=== PATIENT | male | born 1960 | race Caucasian/White ===

== ENCOUNTER 2017-10-09 15:05 | Emergency (ER) | payer MEDICARE ==
[~2017-10-09] VITALS: Ht 180.3 cm; Wt 90.7 kg
[~2017-10-09 15:05] MED LIST: ALBU90OI INH; ASCO250CH PO; ATOR40TA PO; BACL10 PO; BUDE.25 NEB; CARV25 PO; DICL75ER PO; FURO20 PO; GABA300 PO; HYDCHL12.5 PO; Hair, Skin & N1 EACH PO; INS70/30I SC; INSULANPEN; LAVAP17G PO; LEVSOD125 PO; LEVSOD50 PO; METO25; MIRT15 PO; NYST100TC TOP; Norvasc10 MG PO; OMEP40CA12 PO; OXYC5 PO; SENN187 PO; TAMS.4ER PO; VENL75ER PO
[2017-10-09 16:13] LABS: BASOPHILS ABSOLUTE AUTO 0.02 K/mm3 (0.00-0.23); BASOPHILS PERCENT AUTO 0 % (0-2); EOSINOPHILS ABSOLUTE AUTO 0.03 K/mm3 (0.00-0.68); EOSINOPHILS PERCENT AUTO 0 % (0-6); Hematocrit 38.5 % (37.0-53.0); Hemoglobin 12.9 g/dL (13.5-17.5); IMMATURE GRAN ABSOLUTE AUTO 0.04 K/mm3 (0.00-0.10); IMMATURE GRAN PERCENT AUTO 1 % (0-1); LYMPHOCYTES ABSOLUTE AUTO 1.19 K/mm3 (0.84-5.20); LYMPHOCYTES PERCENT AUTO 14 % (21-46); MONOCYTES ABSOLUTE AUTO 0.73 K/mm3 (0.16-1.47); MONOCYTES PERCENT AUTO 9 % (4-13); Mean Corpuscular HGB 28.8 pg (26.0-34.0); Mean Corpuscular HGB Conc 33.5 g/dL (31.5-36.5); Mean Corpuscular Volume 86 fL (80-100); Mean Platelet Volume 9.8 fL (9.1-12.4); NEUTROPHILS ABSOLUTE AUTO 6.49 K/mm3 (1.96-9.15); NEUTROPHILS PERCENT AUTO 76 % (41-73); Platelet Count 230 K/mm3 (150-400); RDW Coefficient Variation 12.5 % (11.7-14.2); RDW Standard Deviation 39.5 fL (35.1-46.3); Red Blood Cell Count 4.48 M/mm3 (4.30-5.90)
[2017-10-09] MEDS ORDERED: TRAM50 PO (16:17)
[2017-10-09 16:31] LABS: Alanine Aminotransfer (ALT/SGP 10 U/L (12-78); Albumin, Blood 2.4 g/dL (3.4-5.0); Albumin/Globulin Ratio 0.4 (0.8-1.8); Alk Phos 131 U/L (50-136); Anion Gap 7 mmol/L (6-16); Aspartate Aminotrans (AST/SGOT 8 U/L (12-37); Bilirubin, Total 0.3 mg/dL (0.1-1.0); Blood Urea Nitrogen 17 mg/dL (8-24); CO2, Blood 28 mmol/L (21-32); Calcium, Blood 8.9 mg/dL (8.5-10.1); Chloride, Blood 98 mmol/L (98-108); Creatinine, Blood 0.85 mg/dL (0.60-1.20); Globulin, Blood 5.4 g/dL (2.2-4.0); Glomerular Filtration Rate >60 (60-); Glucose, Blood 267 mg/dL (70-99); Sodium, Blood 133 mmol/L (136-145); Total Protein, Blood 7.8 g/dL (6.4-8.2); Troponin I <0.015 ng/mL (0.000-0.040)
[2017-10-09] MEDS ORDERED: Norco 5-325 Ta1 EACH PO (17:10)
[2017-10-09] MEDS ORDERED: CYCL10 PO (17:10)
[2017-10-10] MEDS ORDERED: Cyclobenzaprine5 MG PO (15:44)
[2017-10-10] MEDS ORDERED: Norco 5-325 Ta1 EACH PO (15:44)
== END 2017-10-09 17:30 | disposition home or self-care (01) ==
LOC: ER 15:05
PROVIDERS: Physician Assistant
DX: S16.1XXA Strain of muscle, fascia and tendon at neck level, initial encounter (principal); I10 Essential (primary) hypertension; E11.9 Type 2 diabetes mellitus without complications; F32.9 Major depressive disorder, single episode, unspecified; F17.200 Nicotine dependence, unspecified, uncomplicated; Z88.0 Allergy status to penicillin; Z88.8 Allergy status to other drugs, medicaments and biological substances; Z79.899 Other long term (current) drug therapy; Z79.4 Long term (current) use of insulin; W18.30XA Fall on same level, unspecified, initial encounter
CPT/HCPCS: 36415; 70450; 72125; 80053; 83880; 84484; 85025; 93005; 93010; 96374; 96375; 99284; J1170; J2405

== ENCOUNTER 2017-10-10 14:53 | Emergency (ER) | payer MEDICARE ==
[~2017-10-10] VITALS: Ht 180.3 cm; Wt 98.4 kg
[~2017-10-10 14:53] MED LIST changes: +CYCL10 PO; +Norco 5-325 Ta1 EACH PO; +TRAM50 PO
[2017-10-10] MEDS ORDERED: Cyclobenzaprine5 MG PO (15:44)
[2017-10-10] MEDS ORDERED: Norco 5-325 Ta1 EACH PO (15:44)
== END 2017-10-10 15:48 | disposition home or self-care (01) ==
LOC: ER 14:53
DX: M54.2 Cervicalgia (principal); I87.2 Venous insufficiency (chronic) (peripheral); Z88.0 Allergy status to penicillin; Z88.8 Allergy status to other drugs, medicaments and biological substances; Z79.899 Other long term (current) drug therapy; Z79.4 Long term (current) use of insulin; Z79.2 Long term (current) use of antibiotics; I10 Essential (primary) hypertension; E11.9 Type 2 diabetes mellitus without complications; E78.5 Hyperlipidemia, unspecified; E03.9 Hypothyroidism, unspecified; F32.9 Major depressive disorder, single episode, unspecified; F17.210 Nicotine dependence, cigarettes, uncomplicated
CPT/HCPCS: 99281

== ENCOUNTER 2019-08-28 15:34 | Emergency (ER) | payer OTHER, MEDICARE ==
[~2019-08-28] VITALS: Ht 185.4 cm; Wt 99.8 kg
[~2019-08-28 15:34] MED LIST changes: +Cyclobenzaprine5 MG PO
[2019-08-28 16:18] LABS: BASOPHILS ABSOLUTE AUTO 0.04 K/mm3 (0.00-0.23); BASOPHILS PERCENT AUTO 1 % (0-2); EOSINOPHILS ABSOLUTE AUTO 0.08 K/mm3 (0.00-0.68); EOSINOPHILS PERCENT AUTO 1 % (0-6); Hematocrit 36.9 % (37.0-53.0); Hemoglobin 11.9 g/dL (13.5-17.5); IMMATURE GRAN ABSOLUTE AUTO 0.03 K/mm3 (0.00-0.10); IMMATURE GRAN PERCENT AUTO 1 % (0-1); LYMPHOCYTES ABSOLUTE AUTO 1.28 K/mm3 (0.84-5.20); LYMPHOCYTES PERCENT AUTO 19 % (21-46); MONOCYTES ABSOLUTE AUTO 0.55 K/mm3 (0.16-1.47); MONOCYTES PERCENT AUTO 8 % (4-13); Mean Corpuscular HGB Conc 32.2 g/dL (31.5-36.5); Mean Corpuscular Volume 90 fL (80-100); Mean Platelet Volume 9.8 fL (9.1-12.4); NEUTROPHILS ABSOLUTE AUTO 4.66 K/mm3 (1.96-9.15); NEUTROPHILS PERCENT AUTO 70 % (41-73); Platelet Count 130 K/mm3 (150-400); RDW Coefficient Variation 13.9 % (11.7-14.2); RDW Standard Deviation 45.2 fL (35.1-46.3); Red Blood Cell Count 4.11 M/mm3 (4.30-5.90); White Blood Cell Count 6.64 K/mm3 (4.00-11.30)
[2019-08-28 16:31] LABS: Source, Urine Clean Catch
[2019-08-28 16:35] LABS: Albumin, Blood 2.3 g/dL (3.4-5.0); Albumin/Globulin Ratio 0.5 (0.8-1.8); Bilirubin, Total 0.2 mg/dL (0.1-1.0); Bun/Creatinine Ratio 13.3 (12.0-20.0); Calcium, Blood 7.9 mg/dL (8.5-10.1); Creatinine, Blood 1.65 mg/dL (0.60-1.20); Globulin, Blood 4.2 g/dL (2.2-4.0); Potassium, Blood 4.6 mmol/L (3.5-5.5); Total Protein, Blood 6.5 g/dL (6.4-8.2)
[2019-08-28 16:35] LABS: Bilirubin, Urine Neg (Neg); Blood, Urine 3+ (Neg); Glucose Qualitative, Urine 2+ (Neg); Ketones, Urine Neg (Neg); Leukocyte Esterase, Urine Neg (Neg); Nitrite, Urine Neg (Neg); Protein, Urine 4+ (Neg); Specific Gravity, Urine 1.015 (1.003-1.022); Urobilinogen, Urine NORM (Normal); pH, Urine 6.5 (5.0-8.0)
[2019-08-28 16:46] LABS: Appearance, Urine Clear (Clear); Color, Urine Yellow (P-Yellow)
[2019-08-28 16:47] LABS: Bacteria Few /hpf; White Blood Cells, Urine 0-2 /hpf (0-5)
[2019-08-28 16:48] LABS: Hyaline Casts 0-2 /lpf (0-2); Squamous Epithelial Cells Few /hpf (Few)
[2019-08-28 16:49] LABS: U Amphetamine Screen DETECTED; U Barbituate Screen Not Detected; U Benzodiazapine Screen Not Detected; U Buprenorphine Screen Not Detected; U Cannabinoids Screen DETECTED; U Cocaine Screen Not Detected; U Methadone Screen Not Detected; U Methamphetamine Screen DETECTED; U Opiates Screen Not Detected; U Oxycodone Screen Not Detected; U Phencyclidine Screen Not Detected; U Propoxyphene Screen Not Detected
[2019-08-28] MEDS ORDERED: Cleocin HCl300 MG PO (17:11)
== END 2019-08-28 20:53 | disposition home or self-care (01) ==
LOC: ER 15:34
PROVIDERS: Emergency Medicine
DX: S81.812A Laceration without foreign body, left lower leg, initial encounter (principal); L03.116 Cellulitis of left lower limb; F15.10 Other stimulant abuse, uncomplicated; I10 Essential (primary) hypertension; E11.9 Type 2 diabetes mellitus without complications; E78.5 Hyperlipidemia, unspecified; E03.9 Hypothyroidism, unspecified; F32.9 Major depressive disorder, single episode, unspecified; F17.210 Nicotine dependence, cigarettes, uncomplicated; Z88.0 Allergy status to penicillin; Z88.8 Allergy status to other drugs, medicaments and biological substances; Z79.899 Other long term (current) drug therapy; Z79.4 Long term (current) use of insulin; W22.8XXA Striking against or struck by other objects, initial encounter
CPT/HCPCS: 36415; 80053; 81001; 82947; 85025; 93005; 93010; 96365; 99284-25

== ENCOUNTER 2020-04-02 00:32 | Day surgery (SDC) | payer MEDICARE, OTHER ==
[~2020-04-02 00:32] MED LIST changes: +ACET325 PO; +Cleocin HCl300 MG PO; -GABA300 PO; +GABA400 PO; +Hydrocodone-Ap1 EA23 PO; -INS70/30I SC; +LEVSOD112 PO; -LEVSOD125 PO; +METO100 PO; +NOVOLIN 70100 UNIT/1 SC
== END 2020-04-02 22:46 | disposition home or self-care (01) ==
LOC: WOUND 00:32
DX: E11.622 Type 2 diabetes mellitus with other skin ulcer (principal); L98.492 Non-pressure chronic ulcer of skin of other sites with fat layer exposed; E11.40 Type 2 diabetes mellitus with diabetic neuropathy, unspecified; I13.0 Hypertensive heart and chronic kidney disease with heart failure and stage 1 through stage 4 chronic kidney disease, or unspecified chronic kidney disease; E03.9 Hypothyroidism, unspecified; I50.9 Heart failure, unspecified; N18.9 Chronic kidney disease, unspecified; J44.9 Chronic obstructive pulmonary disease, unspecified; E78.5 Hyperlipidemia, unspecified; G47.30 Sleep apnea, unspecified; I87.2 Venous insufficiency (chronic) (peripheral); G89.4 Chronic pain syndrome; Z88.0 Allergy status to penicillin; Z88.8 Allergy status to other drugs, medicaments and biological substances; F17.200 Nicotine dependence, unspecified, uncomplicated; Z79.4 Long term (current) use of insulin; Z79.899 Other long term (current) drug therapy
CPT/HCPCS: G0463

== ENCOUNTER 2020-04-23 00:14 | Day surgery (SDC) | payer MEDICARE, OTHER | END 2020-04-23 23:11 | disposition home or self-care (01) | LOC: WOUND 00:14 | DX: E11.622 Type 2 diabetes mellitus with other skin ulcer (principal); E11.40 Type 2 diabetes mellitus with diabetic neuropathy, unspecified; L98.492 Non-pressure chronic ulcer of skin of other sites with fat layer exposed; E11.22 Type 2 diabetes mellitus with diabetic chronic kidney disease; I13.0 Hypertensive heart and chronic kidney disease with heart failure and stage 1 through stage 4 chronic kidney disease, or unspecified chronic kidney disease; E03.9 Hypothyroidism, unspecified; I50.9 Heart failure, unspecified; N18.9 Chronic kidney disease, unspecified; J44.9 Chronic obstructive pulmonary disease, unspecified; I87.2 Venous insufficiency (chronic) (peripheral); E78.5 Hyperlipidemia, unspecified; Z79.899 Other long term (current) drug therapy; Z79.4 Long term (current) use of insulin ==

== ENCOUNTER 2020-05-02 00:19 | Day surgery (SDC) | payer MEDICARE, OTHER | END 2020-05-02 23:06 | disposition home or self-care (01) | LOC: WOUND 00:19 | DX: E11.622 Type 2 diabetes mellitus with other skin ulcer (principal); L98.492 Non-pressure chronic ulcer of skin of other sites with fat layer exposed; E11.40 Type 2 diabetes mellitus with diabetic neuropathy, unspecified; E03.9 Hypothyroidism, unspecified; I13.0 Hypertensive heart and chronic kidney disease with heart failure and stage 1 through stage 4 chronic kidney disease, or unspecified chronic kidney disease; I50.9 Heart failure, unspecified; E78.5 Hyperlipidemia, unspecified; N18.9 Chronic kidney disease, unspecified; J44.9 Chronic obstructive pulmonary disease, unspecified; I87.2 Venous insufficiency (chronic) (peripheral); Z79.899 Other long term (current) drug therapy; Z79.4 Long term (current) use of insulin | CPT/HCPCS: G0463 ==

== ENCOUNTER 2021-10-10 01:57 | Day surgery (SDC) | payer MEDICARE, OTHER | END 2021-10-10 12:00 | disposition home or self-care (01) | LOC: WOUND 01:57 | DX: E11.621 Type 2 diabetes mellitus with foot ulcer (principal); L97.529 Non-pressure chronic ulcer of other part of left foot with unspecified severity; L97.519 Non-pressure chronic ulcer of other part of right foot with unspecified severity; E11.622 Type 2 diabetes mellitus with other skin ulcer; L97.829 Non-pressure chronic ulcer of other part of left lower leg with unspecified severity; L03.90 Cellulitis, unspecified; E11.40 Type 2 diabetes mellitus with diabetic neuropathy, unspecified; E11.51 Type 2 diabetes mellitus with diabetic peripheral angiopathy without gangrene; I87.2 Venous insufficiency (chronic) (peripheral); I13.0 Hypertensive heart and chronic kidney disease with heart failure and stage 1 through stage 4 chronic kidney disease, or unspecified chronic kidney disease; N18.9 Chronic kidney disease, unspecified; E11.22 Type 2 diabetes mellitus with diabetic chronic kidney disease; I50.9 Heart failure, unspecified; J44.9 Chronic obstructive pulmonary disease, unspecified; F17.200 Nicotine dependence, unspecified, uncomplicated; Z88.0 Allergy status to penicillin; Z88.8 Allergy status to other drugs, medicaments and biological substances | CPT/HCPCS: G0463 ==

== ENCOUNTER 2021-10-27 03:12 | Day surgery (SDC) | payer MEDICARE, OTHER | END 2021-10-27 23:31 | disposition home or self-care (01) | LOC: WOUND 03:12 | DX: E11.621 Type 2 diabetes mellitus with foot ulcer (principal); L97.529 Non-pressure chronic ulcer of other part of left foot with unspecified severity; L03.90 Cellulitis, unspecified; I87.2 Venous insufficiency (chronic) (peripheral); E11.51 Type 2 diabetes mellitus with diabetic peripheral angiopathy without gangrene; E11.40 Type 2 diabetes mellitus with diabetic neuropathy, unspecified; E03.9 Hypothyroidism, unspecified; E78.5 Hyperlipidemia, unspecified; E11.22 Type 2 diabetes mellitus with diabetic chronic kidney disease; I12.9 Hypertensive chronic kidney disease with stage 1 through stage 4 chronic kidney disease, or unspecified chronic kidney disease; N18.9 Chronic kidney disease, unspecified; J44.9 Chronic obstructive pulmonary disease, unspecified | CPT/HCPCS: G0463 ==

== ENCOUNTER 2022-07-27 09:49 | Day surgery (SDC) | payer OTHER, MEDICARE ==
[~2022-07-27 09:49] MED LIST changes: +Amlodipine Bes2.5 MG PO; +Aspir 8181 MG PO; +CALCIUM CARBON650 MG PO; +CHLO25B PO; +Flovent Diskus50 MCG IH; -NOVOLIN 70100 UNIT/1 SC; +NOVOLIN 70100 UNIT/3; +SODBIC650 PO; +Synthroid200 MCG PO; +Vitamin D1000 UNI1 PO; +ZYRTEC10 M2 PO
== END 2022-07-27 19:00 | disposition home or self-care (01) ==
DX: E11.51 Type 2 diabetes mellitus with diabetic peripheral angiopathy without gangrene (principal); I70.213 Atherosclerosis of native arteries of extremities with intermittent claudication, bilateral legs; Z72.0 Tobacco use; I10 Essential (primary) hypertension; E78.5 Hyperlipidemia, unspecified; N18.4 Chronic kidney disease, stage 4 (severe); E11.22 Type 2 diabetes mellitus with diabetic chronic kidney disease; Z88.8 Allergy status to other drugs, medicaments and biological substances; Z88.0 Allergy status to penicillin; Z79.82 Long term (current) use of aspirin; Z79.4 Long term (current) use of insulin

== ENCOUNTER 2023-03-31 08:49 | Emergency (ER) | payer OTHER ==
[~2023-03-31] VITALS: Ht 188 cm; Wt 120.2 kg
[~2023-03-31 08:49] MED LIST changes: +AMLO10 PO; -Amlodipine Bes2.5 MG PO; +FLONASE ALLERG9.9 M2; -Flovent Diskus50 MCG IH
[2023-03-31 10:12] LABS: Source, Urine Clean Catch
[2023-03-31 10:18] LABS: Appearance, Urine Clear (Clear); BASOPHILS ABSOLUTE AUTO 0.02 K/mm3 (0.00-0.23); BASOPHILS PERCENT AUTO 0 % (0-2); Bilirubin, Urine Neg (Neg); Blood, Urine 2+ (Neg); Color, Urine Yellow (P-Yellow); EOSINOPHILS ABSOLUTE AUTO 0.07 K/mm3 (0.00-0.68); EOSINOPHILS PERCENT AUTO 1 % (0-6); Glucose Qualitative, Urine 4+ (Neg); Hematocrit 26.6 % (37.0-53.0); Hemoglobin 8.7 g/dL (13.5-17.5); IMMATURE GRAN ABSOLUTE AUTO 0.02 K/mm3 (0.00-0.10); IMMATURE GRAN PERCENT AUTO 0 % (0-1); Ketones, Urine Neg (Neg); LYMPHOCYTES ABSOLUTE AUTO 0.58 K/mm3 (0.84-5.20); LYMPHOCYTES PERCENT AUTO 11 % (21-46); Leukocyte Esterase, Urine Neg (Neg); MONOCYTES ABSOLUTE AUTO 0.32 K/mm3 (0.16-1.47); MONOCYTES PERCENT AUTO 6 % (4-13); Mean Corpuscular HGB 29.5 pg (26.0-34.0); Mean Corpuscular HGB Conc 32.7 g/dL (31.5-36.5); Mean Corpuscular Volume 90 fL (80-100); Mean Platelet Volume 10.8 fL (9.1-12.4); NEUTROPHILS ABSOLUTE AUTO 4.28 K/mm3 (1.96-9.15); NEUTROPHILS PERCENT AUTO 81 % (41-73); Nitrite, Urine Neg (Neg); Platelet Count 101 K/mm3 (150-400); Protein, Urine 3+ (Neg); RDW Coefficient Variation 14.5 % (11.7-14.2); RDW Standard Deviation 48.3 fL (35.1-46.3); Red Blood Cell Count 2.95 M/mm3 (4.30-5.90); Specific Gravity, Urine 1.005 (1.003-1.022); Urobilinogen, Urine NORM (Normal); White Blood Cell Count 5.29 K/mm3 (4.00-11.30)
[2023-03-31 10:22] LABS: Albumin, Blood 2.4 g/dL (3.4-5.0); Albumin/Globulin Ratio 0.7 (0.8-1.8); Bilirubin, Total 0.2 mg/dL (0.1-1.0); Bun/Creatinine Ratio 15.2 (12.0-20.0); Calcium, Blood 7.6 mg/dL (8.5-10.1); Creatinine, Blood 2.17 mg/dL (0.60-1.20); Globulin, Blood 3.4 g/dL (2.2-4.0); Magnesium, Blood 1.7 mg/dL (1.6-2.4); Potassium, Blood 4.7 mmol/L (3.5-5.5); Total Protein, Blood 5.8 g/dL (6.4-8.2)
[2023-03-31 10:25] LABS: Bacteria Rare /hpf; Squamous Epithelial Cells Few /hpf (Few); White Blood Cells, Urine 0-2 /hpf (0-5)
[2023-03-31 11:27] LABS: Base Excess Venous 0.5 mmol/L; Bicarbonate Venous 24.8 mmol/L (24.0-30.0); PCO2 Venous 40.7 mmHg (38-42)
[2023-03-31 17:00] VITALS: BP 152/76
[2023-04-03] MEDS ORDERED: BACTRIM DS TAB1 EAC6 PO (15:16)
[2023-04-03] MEDS ORDERED: LOPE2C PO (15:16)
[2023-04-14] MEDS ORDERED: VISBIOME 112.51 EACH PO (11:06)
== END 2023-03-31 17:05 | disposition home or self-care (01) ==
LOC: ER 08:49
PROVIDERS: Physician Assistant
DX: R53.1 Weakness (principal); E11.65 Type 2 diabetes mellitus with hyperglycemia; I10 Essential (primary) hypertension; E78.5 Hyperlipidemia, unspecified; E03.9 Hypothyroidism, unspecified; F17.210 Nicotine dependence, cigarettes, uncomplicated; Z88.0 Allergy status to penicillin; Z88.8 Allergy status to other drugs, medicaments and biological substances; Z91.018 Allergy to other foods; Z79.82 Long term (current) use of aspirin; Z79.899 Other long term (current) drug therapy; Z79.4 Long term (current) use of insulin
CPT/HCPCS: 73502; 80053; 81001; 82803; 82947; 83735; 85025; 93005; 93010; 96361; 96374; 96375; 99285-25; A9270; J1170; J1815; J1885; J2405; J7030

== ENCOUNTER 2023-04-02 10:35 | Emergency (ER) | payer OTHER ==
[~2023-04-02] VITALS: Ht 177.8 cm; Wt 113.4 kg
[2023-04-02 11:24] LABS: BASOPHILS ABSOLUTE AUTO 0.02 K/mm3 (0.00-0.23); BASOPHILS PERCENT AUTO 0 % (0-2); EOSINOPHILS ABSOLUTE AUTO 0.04 K/mm3 (0.00-0.68); EOSINOPHILS PERCENT AUTO 0 % (0-6); Hematocrit 29.5 % (37.0-53.0); IMMATURE GRAN ABSOLUTE AUTO 0.04 K/mm3 (0.00-0.10); IMMATURE GRAN PERCENT AUTO 0 % (0-1); LYMPHOCYTES ABSOLUTE AUTO 0.84 K/mm3 (0.84-5.20); LYMPHOCYTES PERCENT AUTO 9 % (21-46); MONOCYTES ABSOLUTE AUTO 0.66 K/mm3 (0.16-1.47); MONOCYTES PERCENT AUTO 7 % (4-13); Mean Corpuscular HGB 29.8 pg (26.0-34.0); Mean Corpuscular HGB Conc 33.9 g/dL (31.5-36.5); Mean Corpuscular Volume 88 fL (80-100); Mean Platelet Volume 10.5 fL (9.1-12.4); NEUTROPHILS ABSOLUTE AUTO 8.13 K/mm3 (1.96-9.15); NEUTROPHILS PERCENT AUTO 84 % (41-73); Platelet Count 162 K/mm3 (150-400); RDW Coefficient Variation 14.5 % (11.7-14.2); RDW Standard Deviation 46.6 fL (35.1-46.3); Red Blood Cell Count 3.36 M/mm3 (4.30-5.90); White Blood Cell Count 9.73 K/mm3 (4.00-11.30)
[2023-04-02 11:30] VITALS: BP 130/57
[2023-04-02 11:38] LABS: Magnesium, Blood 1.4 mg/dL (1.6-2.4)
[2023-04-02 11:39] LABS: Alanine Aminotransfer (ALT/SGP 39 U/L (12-78); Albumin, Blood 2.2 g/dL (3.4-5.0); Albumin/Globulin Ratio 0.6 (0.8-1.8); Alk Phos 94 U/L (50-136); Anion Gap 8 mmol/L (6-16); Aspartate Aminotrans (AST/SGOT 24 U/L (12-37); Bilirubin, Direct <0.1 mg/dL (0.0-0.3); Bilirubin, Indirect Unable to Calculate mg/dL (0.1-0.7); Bilirubin, Total 0.2 mg/dL (0.1-1.0); Blood Urea Nitrogen 37 mg/dL (8-24); Bun/Creatinine Ratio 16.2 (12.0-20.0); CO2, Blood 22 mmol/L (21-32); Calcium, Blood 7.2 mg/dL (8.5-10.1); Chloride, Blood 109 mmol/L (98-108); Creatinine, Blood 2.29 mg/dL (0.60-1.20); Globulin, Blood 3.7 g/dL (2.2-4.0); Glomerular Filtration Rate 31 (60-); Glucose, Blood 52 mg/dL (70-99); Sodium, Blood 139 mmol/L (136-145); Total Protein, Blood 5.9 g/dL (6.4-8.2)
[2023-04-02 12:01] LABS: Source, Urine Clean Catch
[2023-04-02 12:17] LABS: Appearance, Urine Clear (Clear); Bilirubin, Urine Neg (Neg); Blood, Urine 2+ (Neg); Color, Urine Yellow (P-Yellow); Glucose Qualitative, Urine Neg (Neg); Ketones, Urine Neg (Neg); Leukocyte Esterase, Urine 3+ (Neg); Nitrite, Urine Pos (Neg); Protein, Urine 3+ (Neg); Specific Gravity, Urine 1.015 (1.003-1.022); Urobilinogen, Urine NORM (Normal)
[2023-04-02 12:35] LABS: Red Blood Cells, Urine 0-2 /hpf (0-2); White Blood Cells, Urine 25-50 /hpf (0-5)
[2023-04-02 12:36] LABS: Bacteria Few /hpf; Squamous Epithelial Cells Few /hpf (Few)
[2023-04-02 13:06] LABS: Influenza A, PCR NEGATIVE (NEGATIVE); Influenza B, PCR NEGATIVE (NEGATIVE); Resp Syncytial Virus, PCR NEGATIVE (NEGATIVE); SARS-Cov-2 (COVID-19) PCR, MMC NEGATIVE (NEGATIVE)
[2023-04-02] MEDS ORDERED: BACTRIM DS TAB1 EAC6 PO (14:30)
[2023-04-02] MEDS ORDERED: LOPE2C PO (16:29)
[2023-04-03] MEDS ORDERED: BACTRIM DS TAB1 EAC6 PO (15:16)
[2023-04-03] MEDS ORDERED: LOPE2C PO (15:16)
[2023-04-14] MEDS ORDERED: VISBIOME 112.51 EACH PO (11:06)
== END 2023-04-02 16:35 | disposition home or self-care (01) ==
LOC: ER 10:35
PROVIDERS: Emergency Medicine
DX: N39.0 Urinary tract infection, site not specified (principal); I10 Essential (primary) hypertension; E11.9 Type 2 diabetes mellitus without complications; E78.5 Hyperlipidemia, unspecified; E03.9 Hypothyroidism, unspecified; Z20.822 Contact with and (suspected) exposure to COVID-19; Z88.0 Allergy status to penicillin; Z88.8 Allergy status to other drugs, medicaments and biological substances; Z79.82 Long term (current) use of aspirin; Z79.4 Long term (current) use of insulin; Z79.899 Other long term (current) drug therapy; Z87.891 Personal history of nicotine dependence
CPT/HCPCS: 0241U; 51702; 51798; 74177; 80048; 80076; 81001; 83690; 83735; 84100; 84484; 85025; 96360; 96361; 99284-25; A9270; J7030; Q9967

== ENCOUNTER 2023-04-09 09:07 | Inpatient (IN) | payer OTHER ==
[~2023-04-09] VITALS: Ht 175.3 cm; Wt 105.5 kg
[~2023-04-09 09:07] MED LIST changes: +BACTRIM DS TAB1 EAC6 PO; +LOPE2C PO
[2023-04-09 09:40] LABS: Source, Urine Clean Catch
[2023-04-09 09:43] LABS: Bilirubin, Urine Neg (Neg); Blood, Urine 2+ (Neg); Glucose Qualitative, Urine Neg (Neg); Ketones, Urine 1+ (Neg); Leukocyte Esterase, Urine 3+ (Neg); Nitrite, Urine Pos (Neg); Protein, Urine 3+ (Neg); Urobilinogen, Urine NORM (Normal)
[2023-04-09 09:48] LABS: BASOPHILS ABSOLUTE AUTO 0.03 K/mm3 (0.00-0.23); BASOPHILS PERCENT AUTO 0 % (0-2); EOSINOPHILS ABSOLUTE AUTO 0.03 K/mm3 (0.00-0.68); EOSINOPHILS PERCENT AUTO 0 % (0-6); Hematocrit 30.3 % (37.0-53.0); Hemoglobin 9.8 g/dL (13.5-17.5); IMMATURE GRAN ABSOLUTE AUTO 0.03 K/mm3 (0.00-0.10); IMMATURE GRAN PERCENT AUTO 0 % (0-1); LYMPHOCYTES ABSOLUTE AUTO 0.55 K/mm3 (0.84-5.20); LYMPHOCYTES PERCENT AUTO 7 % (21-46); MONOCYTES ABSOLUTE AUTO 0.34 K/mm3 (0.16-1.47); MONOCYTES PERCENT AUTO 4 % (4-13); Mean Corpuscular HGB Conc 32.3 g/dL (31.5-36.5); Mean Corpuscular Volume 90 fL (80-100); Mean Platelet Volume 9.8 fL (9.1-12.4); NEUTROPHILS ABSOLUTE AUTO 6.79 K/mm3 (1.96-9.15); NEUTROPHILS PERCENT AUTO 87 % (41-73); Platelet Count 205 K/mm3 (150-400); RDW Coefficient Variation 15.1 % (11.7-14.2); RDW Standard Deviation 49.1 fL (35.1-46.3); Red Blood Cell Count 3.38 M/mm3 (4.30-5.90); White Blood Cell Count 7.77 K/mm3 (4.00-11.30)
[2023-04-09 09:49] LABS: Appearance, Urine Hazy (Clear); Color, Urine Pale Yellow (P-Yellow)
[2023-04-09 09:51] LABS: Bacteria Many /hpf; Squamous Epithelial Cells Rare /hpf (Few)
[2023-04-09 09:58] LABS: International Normalized Ratio 1.03; Prothrombin Time Results 10.8 Sec (9.7-11.5)
[2023-04-09 10:00] LABS: Magnesium, Blood 2.9 mg/dL (1.6-2.4)
[2023-04-09 10:01] LABS: Alanine Aminotransfer (ALT/SGP 65 U/L (12-78); Albumin, Blood 2.6 g/dL (3.4-5.0); Albumin/Globulin Ratio 0.7 (0.8-1.8); Alk Phos 148 U/L (50-136); Anion Gap 7 mmol/L (6-16); Aspartate Aminotrans (AST/SGOT 89 U/L (12-37); Bilirubin, Direct <0.1 mg/dL (0.0-0.3); Bilirubin, Indirect Unable to Calculate mg/dL (0.1-0.7); Bilirubin, Total 0.2 mg/dL (0.1-1.0); Blood Urea Nitrogen 49 mg/dL (8-24); Bun/Creatinine Ratio 14.9 (12.0-20.0); CO2, Blood 20 mmol/L (21-32); Chloride, Blood 114 mmol/L (98-108); Creatinine, Blood 3.28 mg/dL (0.60-1.20); Globulin, Blood 3.6 g/dL (2.2-4.0); Glomerular Filtration Rate 20 (60-); Glucose, Blood 199 mg/dL (70-99); Potassium, Blood 5.1 mmol/L (3.5-5.5); Sodium, Blood 141 mmol/L (136-145); Total Protein, Blood 6.2 g/dL (6.4-8.2)
[2023-04-09 15:20] VITALS: BP 121/59
--- NOTE | 2023-04-09 16:05 | NUR ---
PT CHART REVIEWED FOR ADMISSION
--- NOTE | 2023-04-09 19:06 | NUR ---
PT PLEASANT SINCE ADMIT THIS AFT. DENIES PAIN AT THIS TIME. NO EMESIS SINCE ADMIT. PT STATES NOT WALKED IN WEEK OR SO SINCE FELL OUT OF WHEELCHAIR. STATES FEARFUL. SOME BRUISING ON RT RIB CAGE. STATES FROM FALL. SCABS ON BLE AND FEET. OLD SCAB/SCARS ON TRUNK. CDI. A/O X3 PLEASNT COOP. H/R REG, NO MURMUR NOTED. PER TELE NSR AT 59-62 WITH 1'BLOCK. LUNGS CLEAR, RESP EASY, UNLABORED. ON R.A. BT X4 LAST BM YEST PER PT. VOIDS QUIGLEY CATH. YELLOW FLUID DRAINING TO GRAVITY. WAS 2 ASST TO WHEELCHAIR. FEELS UNSTEADY AND IS NOW BEEN IN BED FOR LAST WEEK. BED IN LOW POSITION, CALL LITE IN REACH, CALLS APPROP
[2023-04-09 19:56] VITALS: BP 115/50
[2023-04-10 04:41] VITALS: BP 133/58
--- NOTE | 2023-04-10 05:31 | NUR ---
SHIFT SUMMARY UNEVENTFUL SHIFT, NO ACUTE CHANGES. HAS RESTED QUIETLY WITH EYES CLOSED, RESP EVEN & UNLABORED. NO COMPLAINTS, DENIES PAIN. F/C TO GRAVITY DRAINAGE. IVF'S & CONT PROTONIX GTT INFUSING IN 2 SEPARATE IV'S. IS PLEASANT & COOPERATIVE WITH ALL CARE. IS A&O X 4. DENIES N/V & ANY GI UPSET. BED IN LOW POSITION, CALL LIGHT WITHIN REACH. BED ALARM ON.
[2023-04-10 05:48] LABS: Albumin, Blood 1.9 g/dL (3.4-5.0); Albumin/Globulin Ratio 0.7 (0.8-1.8); Bilirubin, Total 0.1 mg/dL (0.1-1.0); Bun/Creatinine Ratio 15.8 (12.0-20.0); Calcium, Blood 7.1 mg/dL (8.5-10.1); Creatinine, Blood 2.98 mg/dL (0.60-1.20); Globulin, Blood 2.9 g/dL (2.2-4.0); Potassium, Blood 5.2 mmol/L (3.5-5.5); Total Protein, Blood 4.8 g/dL (6.4-8.2)
[2023-04-10 07:18] VITALS: BP 134/57
[2023-04-10 15:14] VITALS: BP 131/53
--- NOTE | 2023-04-10 17:43 | NUR ---
THE PATIENT IS A&O X4, HIS DOCTOR ORDERED HIS DIET TO CHANGED TOO A DIABETIS DIET. THE PATIENT HAS A RED AREA AT THE END OF HIS PENSIS WHERE THE CATHETER ENTERS, PATIENT STATED THAT IT IS ALITTLE SORE. THE PATIENT HAS EATEN AND SLEPT MOST OF THE DAY, IS PLEASENT TO TALK WITH AND FOLLOWS COMMANDS, I WILL CONTINUE TO MONITOR.
[2023-04-10 19:38] VITALS: BP 136/52
[2023-04-11 03:05] VITALS: BP 156/62
[2023-04-11 04:58] LABS: BASOPHILS ABSOLUTE AUTO 0.03 K/mm3 (0.00-0.23); BASOPHILS PERCENT AUTO 1 % (0-2); EOSINOPHILS ABSOLUTE AUTO 0.17 K/mm3 (0.00-0.68); EOSINOPHILS PERCENT AUTO 4 % (0-6); Hematocrit 24.3 % (37.0-53.0); Hemoglobin 7.4 g/dL (13.5-17.5); IMMATURE GRAN ABSOLUTE AUTO 0.03 K/mm3 (0.00-0.10); IMMATURE GRAN PERCENT AUTO 1 % (0-1); LYMPHOCYTES ABSOLUTE AUTO 0.82 K/mm3 (0.84-5.20); LYMPHOCYTES PERCENT AUTO 17 % (21-46); MONOCYTES ABSOLUTE AUTO 0.39 K/mm3 (0.16-1.47); MONOCYTES PERCENT AUTO 8 % (4-13); Mean Corpuscular HGB 28.4 pg (26.0-34.0); Mean Corpuscular HGB Conc 30.5 g/dL (31.5-36.5); Mean Corpuscular Volume 93 fL (80-100); NEUTROPHILS ABSOLUTE AUTO 3.35 K/mm3 (1.96-9.15); NEUTROPHILS PERCENT AUTO 70 % (41-73); Platelet Count 143 K/mm3 (150-400); RDW Coefficient Variation 15.2 % (11.7-14.2); RDW Standard Deviation 51.9 fL (35.1-46.3); Red Blood Cell Count 2.61 M/mm3 (4.30-5.90); White Blood Cell Count 4.79 K/mm3 (4.00-11.30)
[2023-04-11 05:11] LABS: Albumin, Blood 1.9 g/dL (3.4-5.0); Albumin/Globulin Ratio 0.7 (0.8-1.8); Bilirubin, Total 0.1 mg/dL (0.1-1.0); Bun/Creatinine Ratio 13.6 (12.0-20.0); Calcium, Blood 7.3 mg/dL (8.5-10.1); Creatinine, Blood 2.87 mg/dL (0.60-1.20); Globulin, Blood 2.9 g/dL (2.2-4.0); Potassium, Blood 5.1 mmol/L (3.5-5.5); Total Protein, Blood 4.8 g/dL (6.4-8.2)
--- NOTE | 2023-04-11 05:23 | NUR ---
SHIFT SUMMARY UNEVENTFUL SHIFT, VSS. PT C/O PENIS SORE. F/C CARE DONE X 2, STAPLES DRSELINA NOTED FROM TIP OF PENIS, MILD REDNESS AT PENIS TIP. PT STATES HE'S HAD A F/C FOR QUITE SOMETIME NOW & THAT HIS F/C WAS EXCHANGED TO A NEW ONE IN THE ER THIS HOSPITALIZATION. MEDICATED FOR C/O PAIN ONCE WITH GOOD RELIEF STATED BY PT. IVF'S & PROTONIX GTT INFUSING PER MD ORDER. IS A&O X 4, PLEASANT & COOPERATIVE WITH ALL CARE. BED IN LOW POSITION, CALL LIGHT WITHIN REACH.
[2023-04-11 07:32] VITALS: BP 140/60
[2023-04-11 15:30] VITALS: BP 168/59
--- NOTE | 2023-04-11 16:45 | NUR ---
THE PATIENT HAS BEEN IS BED ALL SHIFT, WATCHING TV AND SLEEPING. THE PATIENT IS SCHEDULED FOR AN EGD TOMORROW AFTERNOON AND IS ON ICE CHIPS AND WATER AFTER 2100 AND NPO AT 1200 TOMORROW. THE PATIENT STARTED RFECEIVING ABX TODAY. THE RESTING AT THIS TIME, WILL CONTINUE TO MONITOR
[2023-04-11 21:04] VITALS: BP 156/63
[2023-04-12] VITALS (8 sets, daily range): BP systolic 146–178; BP diastolic 59–74
[2023-04-12 04:57] LABS: BASOPHILS ABSOLUTE AUTO 0.02 K/mm3 (0.00-0.23); BASOPHILS PERCENT AUTO 0 % (0-2); EOSINOPHILS ABSOLUTE AUTO 0.18 K/mm3 (0.00-0.68); EOSINOPHILS PERCENT AUTO 3 % (0-6); Hematocrit 26.5 % (37.0-53.0); Hemoglobin 8.6 g/dL (13.5-17.5); IMMATURE GRAN ABSOLUTE AUTO 0.02 K/mm3 (0.00-0.10); IMMATURE GRAN PERCENT AUTO 0 % (0-1); LYMPHOCYTES ABSOLUTE AUTO 0.75 K/mm3 (0.84-5.20); LYMPHOCYTES PERCENT AUTO 14 % (21-46); MONOCYTES ABSOLUTE AUTO 0.46 K/mm3 (0.16-1.47); MONOCYTES PERCENT AUTO 8 % (4-13); Mean Corpuscular HGB 29.1 pg (26.0-34.0); Mean Corpuscular HGB Conc 32.5 g/dL (31.5-36.5); Mean Corpuscular Volume 90 fL (80-100); Mean Platelet Volume 9.7 fL (9.1-12.4); NEUTROPHILS ABSOLUTE AUTO 4.09 K/mm3 (1.96-9.15); NEUTROPHILS PERCENT AUTO 74 % (41-73); Platelet Count 153 K/mm3 (150-400); RDW Coefficient Variation 14.7 % (11.7-14.2); RDW Standard Deviation 48.4 fL (35.1-46.3); Red Blood Cell Count 2.96 M/mm3 (4.30-5.90); White Blood Cell Count 5.52 K/mm3 (4.00-11.30)
--- NOTE | 2023-04-12 05:06 | NUR ---
SHIFT SUMMARY PATIENT DENIES PAIN, NAUSEA, AND SHORTNESS OF BREATH. CHRONIC QUIGLEY PATETNT AND DRAINING. SOME DISCHARGE AND SKIN BREAKDOWN NOTED AT [facility]. BARRIER CREAM APPLIED AFTER CLEANSING. PROTECTIVE MEPILEX TO COCCYX. PROTONIX DRIP INFUSING. EGD TOMORROW, CHIPS AND SIPS UNTIL NOON THEN NPO UNTIL SCOPE. PATIENT REPORTS HE SLIDE TRANSFERS AT BASELINE BUT IS AFRAID TO GET OUT OF BED AT THIS TIME. PLEASANT AND COOPERATIVE WITH CARE.
[2023-04-12] MEDS ORDERED: ALBU90OI INH (05:33)
[2023-04-12] MEDS ORDERED: ABILIFY MYCITE2 M2 PO (05:35)
[2023-04-12] MEDS ORDERED: AQUAPHOR ITCH R28 GM TOP (05:37)
[2023-04-12] MEDS ORDERED: Celexa20 MG PO (05:37)
[2023-04-12] MEDS ORDERED: FOLI1 PO (05:39)
[2023-04-12] MEDS ORDERED: GUAI600T33 PO (05:40)
[2023-04-12] MEDS ORDERED: INSULIN AS100 UNIT/9 SC (05:40)
[2023-04-12] MEDS ORDERED: IPRAT-ALBUT 0.5-3 ML INH (05:41)
[2023-04-12] MEDS ORDERED: XOLIDO XP118 ML TOP (05:43)
[2023-04-12] MEDS ORDERED: TRAM50 PO (05:45)
[2023-04-12 06:25] LABS: Percent Saturation 12.3 % (20.0-50.0)
[2023-04-12 06:27] LABS: Bun/Creatinine Ratio 12.2 (12.0-20.0); Calcium, Blood 7.9 mg/dL (8.5-10.1); Creatinine, Blood 2.71 mg/dL (0.60-1.20); Potassium, Blood 5.1 mmol/L (3.5-5.5)
[2023-04-12] MEDS ORDERED: HYDR10 PO (08:06)
[2023-04-12] MEDS ORDERED: COLCHICINE0.6 MG PO (08:07)
--- NOTE | 2023-04-12 08:08 | NUR ---
MEDICATION LIST RECEIVED FROM [facility]. MEDICATION RECONCILIATION COMPLETED. COLCHICINE AND HYDRALAZINE ADDED TO LIST.
--- NOTE | 2023-04-12 14:56 | NUR ---
04/12/[address] MAZA; SEE ANESTHESIA RECORDS.
--- NOTE | 2023-04-12 16:16 | NUR ---
BACK FROM EGD 155 SETTLED TO BED, PASSED BEDSIDE SWALLOW. CHAMP WATER, JELLOW WELL.
--- NOTE | 2023-04-12 17:50 | NUR ---
PT PLEASANT COOP TODAY. DID GET EGD. PASSED BEDSIDE SWALLOW. ATE JELLO. PENDING DINNER. NO C/O PAIN. VSS SINCE RETURN TO ROOM. DR HANSON PLACED ON DIET. READY TO EAT DINNER. NO NEW CONCERNS NOTED. BED IN LOW POSITION, CALL LITE IN REACH, CALLS APPROP
[2023-04-13 04:58] VITALS: BP 160/68
[2023-04-13 05:54] LABS: BASOPHILS ABSOLUTE AUTO 0.01 K/mm3 (0.00-0.23); BASOPHILS PERCENT AUTO 0 % (0-2); EOSINOPHILS ABSOLUTE AUTO 0.18 K/mm3 (0.00-0.68); EOSINOPHILS PERCENT AUTO 3 % (0-6); Hematocrit 24.7 % (37.0-53.0); Hemoglobin 7.8 g/dL (13.5-17.5); IMMATURE GRAN ABSOLUTE AUTO 0.02 K/mm3 (0.00-0.10); IMMATURE GRAN PERCENT AUTO 0 % (0-1); LYMPHOCYTES ABSOLUTE AUTO 0.94 K/mm3 (0.84-5.20); LYMPHOCYTES PERCENT AUTO 16 % (21-46); MONOCYTES ABSOLUTE AUTO 0.55 K/mm3 (0.16-1.47); MONOCYTES PERCENT AUTO 9 % (4-13); Mean Corpuscular HGB 28.6 pg (26.0-34.0); Mean Corpuscular HGB Conc 31.6 g/dL (31.5-36.5); Mean Corpuscular Volume 91 fL (80-100); Mean Platelet Volume 9.9 fL (9.1-12.4); NEUTROPHILS ABSOLUTE AUTO 4.16 K/mm3 (1.96-9.15); NEUTROPHILS PERCENT AUTO 71 % (41-73); Platelet Count 142 K/mm3 (150-400); RDW Coefficient Variation 14.6 % (11.7-14.2); RDW Standard Deviation 48.5 fL (35.1-46.3); Red Blood Cell Count 2.73 M/mm3 (4.30-5.90); White Blood Cell Count 5.86 K/mm3 (4.00-11.30)
[2023-04-13 06:33] LABS: Albumin, Blood 1.8 g/dL (3.4-5.0); Anion Gap 5 mmol/L (6-16); Blood Urea Nitrogen 30 mg/dL (8-24); CO2, Blood 22 mmol/L (21-32); Calcium, Blood 7.8 mg/dL (8.5-10.1); Chloride, Blood 110 mmol/L (98-108); Creatinine, Blood 2.72 mg/dL (0.60-1.20); Glomerular Filtration Rate 25 (60-); Glucose, Blood 218 mg/dL (70-99); Phosphorus, Blood 3.6 mg/dL (2.5-4.9); Sodium, Blood 137 mmol/L (136-145)
[2023-04-13 07:34] VITALS: BP 178/60
--- NOTE | 2023-04-13 07:50 | NUR ---
CRITICAL K RESULTS CALLED INTO [facility], ORDERS GIVEN AND WERE IMPLEMENTED NO ADVERSE AFFECTS NOTED. PT CHAMP WELL. CALCIUM GLUC GIVEN OVER 5 MIN.
[2023-04-13 10:23] LABS: Bun/Creatinine Ratio 11.4 (12.0-20.0); Calcium, Blood 8.4 mg/dL (8.5-10.1); Creatinine, Blood 2.72 mg/dL (0.60-1.20); Potassium, Blood 5.8 mmol/L (3.5-5.5)
--- NOTE | 2023-04-13 16:09 | NUR ---
Patient is lying in bed and alert. Patient tells me about his medical issues, his personal struggles and his dog. He shares about the depression that he lives with and what he feels he is pushing through each day. I normalize his experience, reinforce helpful attitudes and perspectives and provide therapeutic listening and prayer. Patient responded well and showed signs of increased peace and an elevated mood. I will continue to remian available to patient.
[2023-04-13 17:54] VITALS: BP 144/76
--- NOTE | 2023-04-13 18:50 | NUR ---
SHIFT SUMMARY; PATIENT WORKED WITH PT AND OT TODAY. TRYING TO TRANSFER WITH SLIDE BOARD. PT SAYS PATIENT ABLE TO TRANSFER TO BED FROM CHAIR WITHOIUT SLIDING BOARD. HOWEVER JOSE REFUSES FOR THIS RN LATER IN DAY AND IS [id number] BY 2 SHAPER HAND'S AND THIS RN BACK TO BED. HE IS AO X 4 THOUGHOUT THE DAY AND HAS A PLEASANT AFFECT. VITAL SIGNS ARE WNL AND PATIENT ASKS FOR PAIN MEDICATION LATE THIS AFTER NOON FOR BODY ACHES OF 7 OUT OF 10. MEDICATED WITH OXYCODONE AND TYLENOL. WITH MUCH SUCCESS. REPORT TO ONCOMING RN AT SHIFT CHANGE ALL QUESTIONS ADDRESSED.
[2023-04-13 19:34] VITALS: BP 154/73
--- NOTE | 2023-04-14 04:59 | NUR ---
SHIFT SUMMARY; NO ACUTE CHANGES OVERNIGHT. THE PT IS AXO X4 AND WHEELCHAIR BOUND AT BASELINE. THE PT HAS A CHRONIC QUIGLEY, IT IS PATENT AND DRAINING TO GRAVITY. THE PT HAS BEEN SLEEPING THE MAJORITY OF THE NIGHT. THE PT ENDORSES SOME GENERALIZED PAIN BUT DENIES THE NEED FOR PAIN MEDICATION AT THIS TIME. THE PT DENIES ANY CHEST PAIN/PRESSURE, SOB OR N/V. THE PT DID SCRATCH THE BRIDGE OF HIS NOSE LAST NIGHT, I APPLIED A BANDAIDE. CURRENTLY THE PT IS SLEEPING IN BED WITH THE BED IN THE LOWEST POSITION AND THE CALL LIGHT AT BEDSIDE. FIRE SAFETY MAINTAINED T/O THE NIGHT.
[2023-04-14 05:05] VITALS: BP 150/74
[2023-04-14 05:44] LABS: BASOPHILS ABSOLUTE AUTO 0.01 K/mm3 (0.00-0.23); BASOPHILS PERCENT AUTO 0 % (0-2); EOSINOPHILS PERCENT AUTO 3 % (0-6); Hematocrit 25.7 % (37.0-53.0); Hemoglobin 8.3 g/dL (13.5-17.5); IMMATURE GRAN ABSOLUTE AUTO 0.02 K/mm3 (0.00-0.10); IMMATURE GRAN PERCENT AUTO 0 % (0-1); LYMPHOCYTES ABSOLUTE AUTO 1.05 K/mm3 (0.84-5.20); LYMPHOCYTES PERCENT AUTO 16 % (21-46); MONOCYTES PERCENT AUTO 9 % (4-13); Mean Corpuscular HGB 29.2 pg (26.0-34.0); Mean Corpuscular HGB Conc 32.3 g/dL (31.5-36.5); Mean Corpuscular Volume 91 fL (80-100); Mean Platelet Volume 9.5 fL (9.1-12.4); NEUTROPHILS ABSOLUTE AUTO 4.64 K/mm3 (1.96-9.15); NEUTROPHILS PERCENT AUTO 71 % (41-73); Platelet Count 144 K/mm3 (150-400); RDW Coefficient Variation 14.6 % (11.7-14.2); RDW Standard Deviation 48.7 fL (35.1-46.3); Red Blood Cell Count 2.84 M/mm3 (4.30-5.90); White Blood Cell Count 6.52 K/mm3 (4.00-11.30)
[2023-04-14 06:20] LABS: Albumin, Blood 1.9 g/dL (3.4-5.0); Anion Gap 6 mmol/L (6-16); Blood Urea Nitrogen 31 mg/dL (8-24); Bun/Creatinine Ratio 11.2 (12.0-20.0); CO2, Blood 21 mmol/L (21-32); Calcium, Blood 8.3 mg/dL (8.5-10.1); Chloride, Blood 111 mmol/L (98-108); Creatinine, Blood 2.77 mg/dL (0.60-1.20); Glomerular Filtration Rate 25 (60-); Glucose, Blood 118 mg/dL (70-99); Phosphorus, Blood 4.1 mg/dL (2.5-4.9); Potassium, Blood 5.3 mmol/L (3.5-5.5); Sodium, Blood 138 mmol/L (136-145)
[2023-04-14 07:21] VITALS: BP 165/74
[2023-04-14] MEDS ORDERED: LEVO750 PO (11:05)
[2023-04-14] MEDS ORDERED: PANT20 PO (11:05)
[2023-04-14] MEDS ORDERED: LOKELMA10 GM PO (11:05)
[2023-04-14] MEDS ORDERED: VISBIOME 112.51 EACH PO ×2 (11:06)
--- NOTE | 2023-04-14 13:56 | NUR ---
DISCHARGE SUMMARY PATIENT DISCHARGED THIS SHIFT, MEDICAL TRANSPORT SERVICES, MECHANICAL LIFTED INTO WHEELCHAIR. ASSISTED TO CALL HOME HEALTH CAREGIVER PRIOR TO DISCHARGE, PATIENT STATED THEY WOULD BE AT HIS HOUSE WAITING FOR HIM ON RETURN. IV'S DISCONTINUED, DISCHARGE PACKET GIVEN AND EXPLAINED, QUESTIONS ANSWERED.
== END 2023-04-14 12:00 | disposition home health service (06) | DRG 699 ==
LOC: ER 09:07 → MEDS 11:53 → ENPENDDIS 04-14 10:08 → MEDS 04-14 12:00
PROVIDERS: Family Medicine; Internal Medicine; Internal Medicine Gastroenterology; Student in an Organized Health Care Education/Training Program; ADMIT Hospitalist
PROC: 0D758ZZ Dilation of Esophagus, Via Natural or Artificial Opening Endoscopic (ICD-10-PCS; principal; 2023-04-12 14:00)
PROC: 0DB68ZX Excision of Stomach, Via Natural or Artificial Opening Endoscopic, Diagnostic (ICD-10-PCS; 2023-04-12 14:00)
DX: T83.511A Infection and inflammatory reaction due to indwelling urethral catheter, initial encounter (principal); E87.1 Hypo-osmolality and hyponatremia; K92.0 Hematemesis; N17.9 Acute kidney failure, unspecified; N18.4 Chronic kidney disease, stage 4 (severe); N39.0 Urinary tract infection, site not specified; K22.2 Esophageal obstruction; D50.9 Iron deficiency anemia, unspecified; K44.9 Diaphragmatic hernia without obstruction or gangrene; E78.5 Hyperlipidemia, unspecified; D52.9 Folate deficiency anemia, unspecified; E03.9 Hypothyroidism, unspecified; E87.5 Hyperkalemia; F32.A Depression, unspecified; I12.9 Hypertensive chronic kidney disease with stage 1 through stage 4 chronic kidney disease, or unspecified chronic kidney disease; E11.22 Type 2 diabetes mellitus with diabetic chronic kidney disease; D63.1 Anemia in chronic kidney disease; G47.33 Obstructive sleep apnea (adult) (pediatric); B95.2 Enterococcus as the cause of diseases classified elsewhere; B96.20 Unspecified Escherichia coli [E. coli] as the cause of diseases classified elsewhere; E11.51 Type 2 diabetes mellitus with diabetic peripheral angiopathy without gangrene; I87.8 Other specified disorders of veins; N40.0 Benign prostatic hyperplasia without lower urinary tract symptoms; D69.6 Thrombocytopenia, unspecified; M16.0 Bilateral primary osteoarthritis of hip; N31.9 Neuromuscular dysfunction of bladder, unspecified; M54.12 Radiculopathy, cervical region; Z96.651 Presence of right artificial knee joint; Z90.49 Acquired absence of other specified parts of digestive tract; Z98.890 Other specified postprocedural states; Z88.0 Allergy status to penicillin; Z88.8 Allergy status to other drugs, medicaments and biological substances; Z79.4 Long term (current) use of insulin; Z79.899 Other long term (current) drug therapy; Z79.82 Long term (current) use of aspirin; Z79.890 Hormone replacement therapy; Z87.891 Personal history of nicotine dependence
CPT/HCPCS: 36415; 80048; 80053; 80069; 80076; 81001; 82272; 82607; 82728; 82746; 82947; 83036; 83540; 83550; 83690; 83735; 85025; 85610; 85730; 86850; 86900; 86901; 87077; 87086; 87186; 88305; 88342; 93005; 93010; 96365; 96366; 96367; 96375; 97162; 97166; 97530; 99285-25; A9270; C1726; C9113; J0612; J0696; J1650; J1815; J2001; J2185; J2250; J2405; J2704; J2916; J7030; J7042; J7050; J7120

== ENCOUNTER 2023-05-10 09:11 | Inpatient (IN) | payer OTHER ==
[2023-05-10] VITALS (44 sets, daily range): BP systolic 104–171; BP diastolic 60–79
[~2023-05-10] VITALS: Ht 175.3 cm; Wt 117.1 kg
[~2023-05-10 09:11] MED LIST changes: +ABILIFY MYCITE2 M2 PO; +AQUAPHOR ITCH R28 GM TOP; +COLCHICINE0.6 MG PO; +Celexa20 MG PO; +FOLI1 PO; +GUAI600T33 PO; +HYDR10 PO; +INSULIN AS100 UNIT/9 SC; +IPRAT-ALBUT 0.5-3 ML INH; +LEVO750 PO; +LOKELMA10 GM PO; +PANT20 PO; +VISBIOME 112.51 EACH PO; +XOLIDO XP118 ML TOP
[2023-05-10 09:30] LABS: Calcium, Ionized (POC) 1.11 mmol/L (1.10-1.46); Chloride (POC) 113 mmol/L (98-108); Creatinine (POC) 3.3 mg/dL (0.8-1.3); Glucose (ISTAT POC) 181 mg/dL (70-99); Hemoglobin (POC) 9.9 g/dL (13.5-17.5); Potassium (POC) 4.5 mmol/L (3.5-5.5); Sodium (POC) 141 mmol/L (135-148); Total CO2 (POC) 19 mmol/L (21-32)
[2023-05-10 09:43] LABS: BASOPHILS ABSOLUTE AUTO 0.02 K/mm3 (0.00-0.23); BASOPHILS PERCENT AUTO 0 % (0-2); EOSINOPHILS ABSOLUTE AUTO 0.03 K/mm3 (0.00-0.68); EOSINOPHILS PERCENT AUTO 0 % (0-6); Hematocrit 29.1 % (37.0-53.0); IMMATURE GRAN ABSOLUTE AUTO 0.14 K/mm3 (0.00-0.10); IMMATURE GRAN PERCENT AUTO 1 % (0-1); LYMPHOCYTES ABSOLUTE AUTO 1.59 K/mm3 (0.84-5.20); LYMPHOCYTES PERCENT AUTO 14 % (21-46); MONOCYTES PERCENT AUTO 5 % (4-13); Mean Corpuscular HGB Conc 30.9 g/dL (31.5-36.5); Mean Corpuscular Volume 94 fL (80-100); Mean Platelet Volume 10.2 fL (9.1-12.4); NEUTROPHILS PERCENT AUTO 79 % (41-73); Platelet Count 222 K/mm3 (150-400); RDW Coefficient Variation 16.1 % (11.7-14.2); RDW Standard Deviation 55.7 fL (35.1-46.3); White Blood Cell Count 11.08 K/mm3 (4.00-11.30)
[2023-05-10 09:46] LABS: Base Excess Venous -12.1 mmol/L; Bicarbonate Venous 15.3 mmol/L (24.0-30.0); PCO2 Venous 50.1 mmHg (38-42)
[2023-05-10 09:47] LABS: pH Blood Venous 7.14 (7.34-7.37)
[2023-05-10 10:03] LABS: Albumin, Blood 2.5 g/dL (3.4-5.0); Albumin/Globulin Ratio 0.6 (0.8-1.8); Bilirubin, Total 0.3 mg/dL (0.1-1.0); Bun/Creatinine Ratio 10.5 (12.0-20.0); Calcium, Blood 7.4 mg/dL (8.5-10.1); Creatinine, Blood 2.87 mg/dL (0.60-1.20); Globulin, Blood 4.1 g/dL (2.2-4.0); Potassium, Blood 4.6 mmol/L (3.5-5.5); Total Protein, Blood 6.6 g/dL (6.4-8.2)
[2023-05-10 14:39] LABS: Source, Urine Fem Cath
[2023-05-10 14:40] LABS: Influenza A, PCR NEGATIVE (NEGATIVE); Influenza B, PCR NEGATIVE (NEGATIVE); Resp Syncytial Virus, PCR NEGATIVE (NEGATIVE); SARS-Cov-2 (COVID-19) PCR, MMC NEGATIVE (NEGATIVE)
[2023-05-10 15:00] LABS: Appearance, Urine Clear (Clear); Bilirubin, Urine Neg (Neg); Blood, Urine 2+ (Neg); Color, Urine Yellow (P-Yellow); Glucose Qualitative, Urine Neg (Neg); Ketones, Urine Neg (Neg); Leukocyte Esterase, Urine 2+ (Neg); Nitrite, Urine Neg (Neg); Protein, Urine 3+ (Neg); Specific Gravity, Urine 1.015 (1.003-1.022); Urobilinogen, Urine NORM (Normal)
[2023-05-10 15:12] LABS: U Amphetamine Screen Not Detected; U Barbituate Screen Not Detected; U Benzodiazapine Screen Not Detected; U Buprenorphine Screen Not Detected; U Cannabinoids Screen DETECTED; U Cocaine Screen Not Detected; U Methadone Screen Not Detected; U Methamphetamine Screen Not Detected; U Opiates Screen Not Detected; U Oxycodone Screen Not Detected; U Phencyclidine Screen Not Detected; U Propoxyphene Screen Not Detected
[2023-05-10 15:15] LABS: Bacteria Mod /hpf; Red Blood Cells, Urine 0-2 /hpf (0-2); Squamous Epithelial Cells Rare /hpf (Few); Yeast/Fungi Urine Mod /hpf
--- NOTE | 2023-05-10 15:33 | NUR ---
UPDATED PT'S SEDATION PLACED ON STAND-BY PER DR. ALFORD ORDER. PT AWOKE A SHORT TIME LATER, PT TRACKING MY FINGER WITH HIS EYES, FOLLWING COMMANDS BY MOVING ALL 4 EXTREMITIES W STRONG BILATERAL BROADCAST JOURNALIST STRENGTH. PT BECOMING MORE TACHYPNEIC SO HE PLACED BACK ON LOW DOSE PROPOFOL. DR. ALFORD NOTIFIED, NO NEW ORDERS AT THIS TIME.
--- NOTE | 2023-05-10 18:16 | NUR ---
DAY SHIFT SUMMARY PT ARRIVED TO ICU INTUBATED ON THE VENTILATOR. PT REMAINS INTUBATED W VENT SETTINGS UNCHANGED 12/450/ 5.0 W 30% FIO2. PT'S MONITOR HAS SHOWN SR 60'S W RBBB SINCE ARRIVAL TO ICU. PT PLACED ON PROPOFOL AND VERSED GTT DC'D ON ARRIVAL. PT'S BP REMAINED WNL AND STABLE THIS SHIFT EVEN BEING SLIGHTLY HYPERTENSIVE THIS EVENING W SBP IN THE 150'S. PT ARRIVED TO THE HOSPITAL W INDWELLING QUIGLEY CATHETER WHICH WAS CHANGED IN ICU TO A TEMP QUIGLEY WHERE HE WAS SHOWN TO BE HYPOTHERMIC W A CORE TEMP OF 95.0. PT HAD BEAR HUGGER PLACED ON HIM AND HIS TEMP HAS RAISED AND REMAINED AT 98.0. ORDERS TO KEEP TEMP <99.[address] ALFORD. PT HAD SEDATION PLACED ON STAND-BY PER MD ORDER AND WHEN HE WOKE UP HE FOLLOWED COMMANDS AND HAD MOTOR FUNCTION IN ALL 4 EXTREMITIES W NO NOTEABLE DEFICITS. PT TACHYPNEIC WHILE AWAKE SO HE REMAINS ON PROPOFOL 10MG/HR. PT STARTED ON ABX THIS SHIFT FOR UTI. PT DIURESED THIS SHIFT AND HAD 600ML CLEAR YELLOW URINE OUT OF HIS QUIGLEY THIS SHIFT. PT APPEARING COMFORTABLE AT THIS TIME IN NO DISTRESS. WILL REPORT TO ONCOMING RN.
--- NOTE | 2023-05-10 19:30 | NUR ---
ASSUMPTION OF CARE RECEIVED REPORT FROM DAY SHIFT RN. PT RESTING IN BED. OPENS EYES SPONTANEOUSLY, ABLE TO MOUTH WORDS AND MAKE NEEDS KNOWN. PT FOLLOWS COMMANDS. INTUBUATED WITH 8.0 ETT TUBE, 26 AT GUMS. SEDATED WITH PROPOFOL. HR 70-80'S SR, BP WNL. VENTILATOR SETTINGS 12/450/5/30%, LUNG SOUNDS GLEAR, DIMINISHED IN RIGHT BASE. PIV TO LAC AND RAC INFUSING. TEMP QUIGLEY IN PLACE, PATENT DRAINING TO GRAVITY. PT INITIALLY HAD TEMPERATURE THAT REACHED A MAXIMUM OF 99, FAN IN PLACE AND BLANKETS REMOVED WITH GOOD RESULTS. NO FAMILY AT BEDSIDE.
[2023-05-11] VITALS (66 sets, daily range): BP systolic 107–174; BP diastolic 58–111
[2023-05-11 04:35] LABS: Hematocrit 23.4 % (37.0-53.0); Hemoglobin 7.3 g/dL (13.5-17.5); Mean Corpuscular HGB Conc 31.2 g/dL (31.5-36.5); Mean Corpuscular Volume 93 fL (80-100); Mean Platelet Volume 10.8 fL (9.1-12.4); Platelet Count 138 K/mm3 (150-400); RDW Coefficient Variation 16.1 % (11.7-14.2); RDW Standard Deviation 54.7 fL (35.1-46.3); Red Blood Cell Count 2.52 M/mm3 (4.30-5.90); White Blood Cell Count 4.89 K/mm3 (4.00-11.30)
--- NOTE | 2023-05-11 04:47 | NUR ---
SHIFT SUMMARY PT CONTINUES TO REST IN BED. INTUBATED AND SEDATED, VENTILATOR SETTINGS 12/450/5/30%. PT ABLE TO FOLLOW COMMANDS AND MAKE NEEDS KNOWN BY MOUTHING WORDS AND NODDING/SHAKING HIS HEAD. HR SR RATE 60'S, BP WNL. PT COMPLAINED OF PAIN ONCE DURING THE SHIFT, MEDICATED WITH FENTANYL PER EMAR. PIV TO RAC AND LAC, INFUSING. PROPOFOL INFUSING AT 35MCG, NS TKO. QUIGLEY PATENT DRAINING TO GRAVITY. OG TUBE IN PLACE PATENT, SET TO LOW INTERMITTENT SUCTION.
[2023-05-11 04:58] LABS: Albumin/Globulin Ratio 0.6 (0.8-1.8); Bilirubin, Total 0.3 mg/dL (0.1-1.0); Bun/Creatinine Ratio 11.7 (12.0-20.0); Creatinine, Blood 2.99 mg/dL (0.60-1.20); Globulin, Blood 3.2 g/dL (2.2-4.0); Potassium, Blood 5.1 mmol/L (3.5-5.5); Thyroid Stimulating Hormone 2.65 uIU/mL (0.360-4.800); Total Protein, Blood 5.2 g/dL (6.4-8.2)
[2023-05-11 05:54] LABS: BAND PERCENT MAN 1 % (0-8); BASOPHILS PERCENT MAN 0 % (0-2); EOSINOPHILS PERCENT MAN 0 % (0-6); LYMPHOCYTES ABSOLUTE MAN 0.24 K/mm3 (0.84-5.20); LYMPHOCYTES PERCENT MAN 5 % (21-46); METAMYELOCYTE ABSOLUTE MAN 0.04 K/mm3 (0.00-0.00); METAMYELOCYTE PERCENT MAN 1 % (0-0); MONOCYTES ABSOLUTE MAN 0.04 K/mm3 (0.16-1.47); MONOCYTES PERCENT MAN 1 % (4-13); NEUTROPHILS ABSOLUTE MAN 4.54 K/mm3 (1.96-9.15); SEG NEUTROPHILS PERCENT MAN 92 % (41-73); TOTAL CELLS COUNTED 100
--- NOTE | 2023-05-11 07:20 | NUR ---
CARE ASSUMPTION DURING BEDSIDE SHIFT REPORT W TIM AND TALIA RN'S THE PT IS LYING IN BED INTUBATED ON THE VENTILATOR. MONITOR SHOWING SR 60'S. BP WNL AND STABLE. VENT SETTINGS 12/450/5.0 W 30% FIO2. PT APPEARS COMFORTABLE IN NO DISTRESS W PROPOFOL GTT RUNNING AT 35MCG/KG/MIN. ET TUBE PLACEMENT CONFIRMED AT BEDSIDE ET UBE IS 8.0 26 CM AT THE PT'S TEETH. PT HAS TEMP QUIGLEY IN PLACE DRAINING CLEAR YELLOW URINE.
--- NOTE | 2023-05-11 10:24 | NUR ---
Pt. is intybated but otherwise awake and hrough non-verbal nodss welcomes my visit. Pt. had been visited by Fredy Sullivan on Wednesday, but Pt. welcomed more familiar spiritual care today. Through non-verbal nods Pt. affirms that he has no family visiting him, but welcomed this production helper to check on him throughout the day. Prayed with Pt. Pt. nodded appreciation for the spiritual care visit.
[2023-05-11 10:51] LABS: Hematocrit 24.9 % (37.0-53.0); Hemoglobin 7.7 g/dL (13.5-17.5)
--- NOTE | 2023-05-11 16:18 | NUR ---
UPDATE PROVIDER NOTIFIED OF PT'S BLOOD GLUCOSE OF 352. PROVIDER TO PLACE NEW ORDERS.
--- NOTE | 2023-05-11 17:42 | NUR ---
DAY SHIFT SUMMARY PT BEGAN THE SHIFT INTUBATED AND SEDATED ON THE VENTILATOR. PT WAS EXTUBATED APPROX 1140 THIS AM AND HAS REMAINED ON 2L NC ALL SHIFT W SPO2 >94%. PT'S MONITOR HAS SHOWN SR 70'S-90'S THIS SHIFT. PT BP HAS REMAINED WNL AND STABLE THIS SHIFT. PT AFEBRILE THIS SHIFT W PEAK TEMP OF 100.1. PT HAS BEEN ALERT AND ORIENTED SINCE BEING EXTUBATED COMMUNICATING APPROPRIATELY W STAFF. PT HAS TOLERATED PO INTAKE WELL AND HAS BEEN ADVANCED TO AN ADA DIET FOR DINNER. PT'S BLOOD GLUCOSE RISING THIS SHIFT >350 SO PROVIDER CONTACTED AND SS INCRESED FROM LOW SS TO MEDIUM SS. PT REPORTING PAIN IN HIS RIBS THIS SHIFT AND WAS GIVEN IV PAIN MEDICATION X1 THIS SHIFT. PT DENYING FEELING SOB THIS SHIFT BUT BECAME ORTHOPENIC WHEN LAID FLAT IN BED. PT'S QUIGLEY REMAINS PATENT AND DRAINED 500ML CLEAR YELLOW URINE THIS SHIFT. PT HAD ULTRASOUND ON HIS BLE'S THIS SHIFT TO RULE OUT DVT AND HEMATOMA IN L LEG WHICH CAME BACK NEGATIVE. PT CURRENTLY SITTING IN BED TALKING W HIS FRIEND WHO HAS COME TO VISIT HIM. WILL REPORT TO ONCOMING RN.
--- NOTE | 2023-05-11 20:31 | NUR ---
ASSUMED CARE/TRANSFER PT IS A&O X4. DENIES CP OR NAUSEA; STATES RIBS HURT FROM CPR (MEDICATING PER EMAR); COMPLAINS OF MILD SOB (SPO2 >92%, CRACKLES IN BILATERAL LUNG BASES, DR BANKS AT BEDSIDE WHO ALSO HEARD COMPLAINT/ASSESSED PT; NO NEW ORDERS). PERRLA; VSS. QUIGLEY PATENT AND DRAINING TO GRAVITY. EQUAL [employer] HEAD FORMER STRENGTH BILATERALLY.
--- NOTE | 2023-05-11 21:01 | NUR ---
TRANSFER PT TRANSFERRED @ 1929 W/ BELONGINGS/MEDICATIONS.
--- NOTE | 2023-05-12 02:00 | NUR ---
PT VERB NEED TO CONFIRM [facility] LIST WITH [facility] IN AM.HOWEVER,PT REQUESTING NEURONTIN PO NOW FOR SLEEP.PT STATES TAKES 400 MG AT HOME.I CALLED DR GUTIÉRREZ AND RECEIVED ORDER FOR NEURONTIN 200 MG PO NOW.
[2023-05-12 04:08] VITALS: BP 138/78
[2023-05-12 04:18] LABS: BASOPHILS ABSOLUTE AUTO 0.01 K/mm3 (0.00-0.23); BASOPHILS PERCENT AUTO 0 % (0-2); EOSINOPHILS PERCENT AUTO 0 % (0-6); Hemoglobin 7.2 g/dL (13.5-17.5); IMMATURE GRAN ABSOLUTE AUTO 0.06 K/mm3 (0.00-0.10); IMMATURE GRAN PERCENT AUTO 1 % (0-1); LYMPHOCYTES ABSOLUTE AUTO 0.74 K/mm3 (0.84-5.20); LYMPHOCYTES PERCENT AUTO 9 % (21-46); MONOCYTES ABSOLUTE AUTO 0.76 K/mm3 (0.16-1.47); MONOCYTES PERCENT AUTO 10 % (4-13); Mean Corpuscular HGB 28.5 pg (26.0-34.0); Mean Corpuscular HGB Conc 31.3 g/dL (31.5-36.5); Mean Corpuscular Volume 91 fL (80-100); Mean Platelet Volume 10.6 fL (9.1-12.4); NEUTROPHILS ABSOLUTE AUTO 6.43 K/mm3 (1.96-9.15); NEUTROPHILS PERCENT AUTO 80 % (41-73); Platelet Count 165 K/mm3 (150-400); RDW Coefficient Variation 16.1 % (11.7-14.2); RDW Standard Deviation 53.1 fL (35.1-46.3); Red Blood Cell Count 2.53 M/mm3 (4.30-5.90)
[2023-05-12 04:48] LABS: Albumin, Blood 2.3 g/dL (3.4-5.0); Albumin/Globulin Ratio 0.7 (0.8-1.8); Bilirubin, Total 0.3 mg/dL (0.1-1.0); Creatinine, Blood 3.45 mg/dL (0.60-1.20); Globulin, Blood 3.5 g/dL (2.2-4.0); Magnesium, Blood 1.7 mg/dL (1.6-2.4); Phosphorus, Blood 5.9 mg/dL (2.5-4.9); Potassium, Blood 4.6 mmol/L (3.5-5.5); Total Protein, Blood 5.8 g/dL (6.4-8.2)
--- NOTE | 2023-05-12 06:56 | NUR ---
SUMMARY PT TRANSFERRED FROM ICU S/P EXTUBATION THIS AM AFTER ADMIT FOR CARDIAC ARREST AND CPR ENROUTE.PT REPORTS SOB WITH REST.ICU REPORTED PE W/U WAS NEGATIVE. PT ALSO HAS GIULIA ON CKD WITH CHRONIC INDWELLING QUIGLEY.ADEQUATE OUTPUT TONIGHT AND VSS.
[2023-05-12 08:52] VITALS: BP 155/79
[2023-05-12 11:59] VITALS: BP 138/74
--- NOTE | 2023-05-12 14:47 | NUR ---
Pt. is awake in bed and welcomes my visit. Pt. displays evidence of being in pain. 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 Pt. displays evidence of awareness and engagement. Prayed with Pt. Pt. verbalized gratitude for the spiritual care visit.
[2023-05-12 14:53] LABS: Bun/Creatinine Ratio 13.1 (12.0-20.0); Calcium, Blood 7.3 mg/dL (8.5-10.1); Creatinine, Blood 3.37 mg/dL (0.60-1.20); Potassium, Blood 4.3 mmol/L (3.5-5.5)
[2023-05-12 16:24] VITALS: BP 135/72
--- NOTE | 2023-05-12 17:43 | NUR ---
Brief supportive visit. Pt resting in bed and reports significant pain due to his neuropathy. Pt appears painful as evidenced by constant movement and adjustment of his legs. He reports taking gabapentin since 1994 for his neuropathy. Pt reports living at home alone and has caregivers to assist with his careneeds. Pt reports needing assistance with bathing, dressing, cooking, and is wheelchair bound. Offered therapeutic listening as Pt reports his father and sister passing away earlier this year. Offered condolences and continued therapeutic listening. Spoke with Primary RN Zulay and discussed case. Consulted hospital pharmacist to assist with neuropathy pain. Spoke with Dr Mehta and discussed case. Placed order for one time dose of gabapentin 300mg PO per V/O from Dr Mehta. Palliative Care will remain available
--- NOTE | 2023-05-12 18:35 | NUR ---
NO ACUTE CHANGES SINCE LAST NOTE. CALLED AND DISCUSSED PAIN CONTROL WITH RESIDENTS. HOME MEDICATIONS ORDERED. PALLIATIVE CARE CONSULTED AND WAS ABLE TO GET PT A ONE TIME DOSE OF GABAPENTIN, WHICH HAD BEEN HELD THE LAST FEW DAYS D/T PT'S RENAL FUNCTION. PLAN IS TO EVALUATE LABS IN THE AM AND ADJUST DOSE IF ABLE. PT HAS HAD NO COMPLAINTS OTHER THAN PAIN. GIVEN TYLENOL, TRAMADOL AND FENTANYL WITH LITTLE RELIEF. PT IS ABLE TO USE CALL LIGHT FOR NEEDS, CALL LIGHT IN REACH, WILL CONTINUE TO MONITOR AND GIVE REPORT TO ONCOMING RN.
[2023-05-12 19:46] VITALS: BP 130/68
[2023-05-12 23:40] VITALS: BP 132/81
[2023-05-13 03:27] VITALS: BP 146/70
[2023-05-13 04:19] LABS: BASOPHILS ABSOLUTE AUTO 0.02 K/mm3 (0.00-0.23); BASOPHILS PERCENT AUTO 0 % (0-2); EOSINOPHILS ABSOLUTE AUTO 0.02 K/mm3 (0.00-0.68); EOSINOPHILS PERCENT AUTO 0 % (0-6); Hematocrit 25.2 % (37.0-53.0); IMMATURE GRAN ABSOLUTE AUTO 0.03 K/mm3 (0.00-0.10); IMMATURE GRAN PERCENT AUTO 1 % (0-1); LYMPHOCYTES ABSOLUTE AUTO 0.73 K/mm3 (0.84-5.20); LYMPHOCYTES PERCENT AUTO 11 % (21-46); MONOCYTES ABSOLUTE AUTO 0.65 K/mm3 (0.16-1.47); MONOCYTES PERCENT AUTO 10 % (4-13); Mean Corpuscular HGB 28.7 pg (26.0-34.0); Mean Corpuscular HGB Conc 31.7 g/dL (31.5-36.5); Mean Corpuscular Volume 90 fL (80-100); Mean Platelet Volume 10.2 fL (9.1-12.4); NEUTROPHILS ABSOLUTE AUTO 5.01 K/mm3 (1.96-9.15); NEUTROPHILS PERCENT AUTO 78 % (41-73); Platelet Count 171 K/mm3 (150-400); RDW Coefficient Variation 15.9 % (11.7-14.2); RDW Standard Deviation 52.3 fL (35.1-46.3); Red Blood Cell Count 2.79 M/mm3 (4.30-5.90); White Blood Cell Count 6.46 K/mm3 (4.00-11.30)
[2023-05-13 04:41] LABS: Bun/Creatinine Ratio 13.3 (12.0-20.0); Calcium, Blood 7.1 mg/dL (8.5-10.1); Creatinine, Blood 3.15 mg/dL (0.60-1.20); Potassium, Blood 4.6 mmol/L (3.5-5.5)
--- NOTE | 2023-05-13 05:50 | NUR ---
PT SUMMARY: PT WAS TRANSFERRED FROM PCU 6 TO PCU1 UPON SHIFT CHANGE, PT ALERT AND ORIENTED X3, PT CALLS APPROPRIATELY AND ABLE TO MAKE NEEDS KNOWN, VITALS HRR SR 60'S, SBP 130'S, SATS ABOVE 90% ON 2L OF O2, AFEBRILE. PT DESATS TO 85 WHEN O2 IS NOT ON. PT HAS SOEM RIB FX PAIN FROM COMPRESSION, MEDICATED WITH PAIN MEDICINE PER EMAR, FOLEUY DRAINING VIA GRAVITY, PT HAS BEEN REPOSITIONED FOR COMFORT. PT RESTED ON AND OFF FOR THE SHIFT. NO OTHER ISSUES AT THIS TIME, WILL REPORT TO ONCOMING SHIFT
[2023-05-13 09:25] VITALS: BP 135/59
[2023-05-13 11:20] VITALS: BP 132/68
[2023-05-13 16:45] VITALS: BP 130/66
--- NOTE | 2023-05-13 19:18 | NUR ---
NO ACUTE CHANGES T/O THE SHIFT. SEE DOCUEMENTED VS AND ASSESSMENT. PT WORKED WITH PT/OT. PT OOB TO CHAIR THIS EVENING TO DINNER VIA OVERHEAD LIFT IN ROOM. PAIN CONTROL IS BETTER TODAY. PT BATHED TODAY. PT IS ABLE TO USE CALL LIGHT FOR NEEDS, CALL LIGHT IN REACH. REPORT GIVEN TO JANEEN LOYA.
[2023-05-13 20:40] VITALS: BP 148/75
[2023-05-13 23:09] VITALS: BP 142/77
[2023-05-14 03:30] VITALS: BP 142/71
[2023-05-14 03:36] LABS: BASOPHILS ABSOLUTE AUTO 0.02 K/mm3 (0.00-0.23); BASOPHILS PERCENT AUTO 0 % (0-2); EOSINOPHILS ABSOLUTE AUTO 0.05 K/mm3 (0.00-0.68); EOSINOPHILS PERCENT AUTO 1 % (0-6); Hematocrit 24.1 % (37.0-53.0); Hemoglobin 7.5 g/dL (13.5-17.5); IMMATURE GRAN ABSOLUTE AUTO 0.02 K/mm3 (0.00-0.10); IMMATURE GRAN PERCENT AUTO 0 % (0-1); LYMPHOCYTES ABSOLUTE AUTO 0.56 K/mm3 (0.84-5.20); LYMPHOCYTES PERCENT AUTO 10 % (21-46); MONOCYTES ABSOLUTE AUTO 0.56 K/mm3 (0.16-1.47); MONOCYTES PERCENT AUTO 10 % (4-13); Mean Corpuscular HGB 28.4 pg (26.0-34.0); Mean Corpuscular HGB Conc 31.1 g/dL (31.5-36.5); Mean Corpuscular Volume 91 fL (80-100); Mean Platelet Volume 10.5 fL (9.1-12.4); NEUTROPHILS ABSOLUTE AUTO 4.43 K/mm3 (1.96-9.15); NEUTROPHILS PERCENT AUTO 79 % (41-73); Platelet Count 140 K/mm3 (150-400); RDW Coefficient Variation 15.9 % (11.7-14.2); RDW Standard Deviation 53.2 fL (35.1-46.3); Red Blood Cell Count 2.64 M/mm3 (4.30-5.90); White Blood Cell Count 5.64 K/mm3 (4.00-11.30)
[2023-05-14 04:04] LABS: Albumin, Blood 2.1 g/dL (3.4-5.0); Albumin/Globulin Ratio 0.6 (0.8-1.8); Bilirubin, Total 0.3 mg/dL (0.1-1.0); Bun/Creatinine Ratio 13.9 (12.0-20.0); Calcium, Blood 7.1 mg/dL (8.5-10.1); Creatinine, Blood 3.1 mg/dL (0.60-1.20); Globulin, Blood 3.4 g/dL (2.2-4.0); Total Protein, Blood 5.5 g/dL (6.4-8.2)
--- NOTE | 2023-05-14 04:27 | NUR ---
SHIFT SUMMARY NO ACUTE CHANGES THIS SHIFT. VSS. MENTATION UNCHANGED, AXO4, VERY TALKATIVE. REMAINS IN SR. O2 DEMANDS FLUCTUATE DETERMINING ON BEING AWAKE OR ASLEEP. WHILE AWAKE, ON 3LNC, WHILE ASLEEP 85-6L O2 MASK DUE TO MOUTH BREATHING. PT BEING TURNED MULTIPLES TIMES THIS SHIFT. PT IN INCREASED PAIN THIS SHIFT DUE TO AMOUNT OF TIME IN CHAIR DURING DAY SHIFT VS PRIOR SHIFTS - PER PT STATEMENT. SORAIDA PATENT. PT BEING ENCOURAGED TO DEEP BREATH/COUGH, PT USING ARMS/PILLOW TO SPLINT WITH THIS WELL. OTHERWISER, PT HASN'T RESTED MUCH THIS SHIFT. SLEEPS FOR <30 MINUTES AT A TIME BEFORE WAKING DESPITE CALM AND QUIET ENVIRONMENT. CALL LIGHT WITHIN REACH. BED IN LOW POSITION.
[2023-05-14 08:00] VITALS: BP 132/70
[2023-05-14 15:47] VITALS: BP 132/69
[2023-05-14 15:59] LABS: Hematocrit 24.2 % (37.0-53.0); Hemoglobin 7.7 g/dL (13.5-17.5); IMMATURE RETIC FRACTION 20.9 % (2.3-16.0); RETIC HGB EQUIVALENT 25.8 pg (28.20-36.60); RETICULOCYTE ABSOLUTE 0.0541 M/mm3 (0.0200-0.1100); RETICULOCYTE COUNT PERCENT 2.01 % (0.50-2.50)
--- NOTE | 2023-05-14 16:12 | NUR ---
TRANSFER: PT TRANSFERRED TO [place] [id number] VIA BED. ALL BELONGINGS WITH PT. REPORT GIVEN TO MARYBEL Bailey RN.
--- NOTE | 2023-05-14 17:36 | NUR ---
NOTES: PATIENT ARRIVES TO ROOM AT AROUND 1620 FROM PCU. ASSUMED CARE OF PATIENT. PATIENT IS ALERT AND ORIENTED TO SELF, PLACE AND CURRENT SITUATIONS. ON TELE, SR HR IN THE 70'S BPM. DENIES CP/PRESSURE. ON O2 2L VIA NC c SPO2 ABOVE 90%. LUNGS COARSE T/O TO AUSCULTATIONS. NOTED BROWN DISCOLORATION TO BLE'S, PRESSURE SORE TO R HEEL, BRUISING SCATTERED T/O AND REDENESS TO COCCYX MIPELEX DRESSING PLACED. QUIGLEY PATENT, DRAINING TALIA COLOR URINE TO GRAVITY. REPOSITIONED AND HEELS ELEVATED ON PILLOWS. PIV TO RAC SALINE LOCKED. BED ALARM ON FOR SAFETY. CALL LIGHT IN REACH.
[2023-05-14 20:06] VITALS: BP 139/68
[2023-05-15 02:06] VITALS: BP 146/70
--- NOTE | 2023-05-15 06:07 | NUR ---
SHIFT SUMMARY PATIENT A/Ox3, FORGETFUL, IS HARD OF HEARING. MUMBLING SPEECH AT TIMES. DENIES PAIN NOR DISCOMFORT. VSS, SPO2 90% ON 2L NC. PATIENT STATES HAS BEEN AMBULATING VIA WHEELCHAIR SINCE 2017 DUE TO HIS LEGS BEING TOO WEAK. QUIGLEY PATENT, DRAINING TALIA URINE. PRESSURE SORE TO RIGHT HEEL IS DRY, CLOSED AND SODA FOUNTAIN MANAGER, ELEVATED ON PILLOW. PIV TO RIGHT AC IS PATENT, SL. BED LOW, BED ALARM ON FOR PATIENT SAFETY, CALL LIGHT WITHIN REACH.
[2023-05-15 06:33] LABS: BASOPHILS ABSOLUTE AUTO 0.01 K/mm3 (0.00-0.23); BASOPHILS PERCENT AUTO 0 % (0-2); EOSINOPHILS ABSOLUTE AUTO 0.09 K/mm3 (0.00-0.68); EOSINOPHILS PERCENT AUTO 2 % (0-6); Hematocrit 25.5 % (37.0-53.0); Hemoglobin 8.1 g/dL (13.5-17.5); IMMATURE GRAN ABSOLUTE AUTO 0.01 K/mm3 (0.00-0.10); IMMATURE GRAN PERCENT AUTO 0 % (0-1); LYMPHOCYTES ABSOLUTE AUTO 0.57 K/mm3 (0.84-5.20); LYMPHOCYTES PERCENT AUTO 10 % (21-46); MONOCYTES ABSOLUTE AUTO 0.49 K/mm3 (0.16-1.47); MONOCYTES PERCENT AUTO 9 % (4-13); Mean Corpuscular HGB 28.6 pg (26.0-34.0); Mean Corpuscular HGB Conc 31.8 g/dL (31.5-36.5); Mean Corpuscular Volume 90 fL (80-100); Mean Platelet Volume 10.1 fL (9.1-12.4); NEUTROPHILS PERCENT AUTO 80 % (41-73); Platelet Count 138 K/mm3 (150-400); RDW Coefficient Variation 15.5 % (11.7-14.2); RDW Standard Deviation 51.6 fL (35.1-46.3); Red Blood Cell Count 2.83 M/mm3 (4.30-5.90); White Blood Cell Count 5.77 K/mm3 (4.00-11.30)
[2023-05-15 07:12] LABS: Bun/Creatinine Ratio 13.7 (12.0-20.0); Calcium, Blood 7.7 mg/dL (8.5-10.1); Creatinine, Blood 2.85 mg/dL (0.60-1.20)
[2023-05-15 07:13] VITALS: BP 161/78
[2023-05-15 16:07] VITALS: BP 137/69
--- NOTE | 2023-05-15 17:52 | NUR ---
SHIFT SUMMARY: PATIENT IS A&OX4. ANSWER TO QUESTIONS APPROPRIATELY, CALM PLEASANT AND COOPERATTIVE c CARE. USES CALL LIGHT APPROPRIATELY AND ABLE TO MAKE NEEDS KNOWN. PATIENT ON TELE, SR HR IN THE HIGH 60'S BPM. LUNGS STILL COARSE T/O TO AUSCULTATION. PRODUCTIVE COUGH c THICK WHT/STAPLES COLOR SPUTUM. ON 2L OF O2 c SPO2 RANGES 93-94%. DENIES CP/PRESSURE, SOB, N/V, AND DIZZINESS. BS RANGES 178-253 THIS SHIFT, RECEIVED INSULIN PER EMAR COVERAGE. RECEIVED IV ABX AND SCHEDULED PO MEDS PER EMAR. PATIENT WORK c PT BED MOBILITY THIS AM AND WAS ABLE TO SIT UP ON THE EOB. PT STILL RECOMMENDING SNF FOR REHAB. RECEIVED BEDBATH AND LINEN CHANGED TODAY. QUIGLEY PATENT, DRAINING YELLOW URINE TO GRAVITY. REPOSITIONED T/O SHIFT. VITAL SIGNS REVIEWED. BED ALARM ON FOR SAFETY. CALL LIGHT IN REACH.
[2023-05-15 19:14] VITALS: BP 136/64
--- NOTE | 2023-05-16 04:27 | NUR ---
SHIFT SUMMARY PT IS A&O4, BEDREST, 2L NC SATS LOW TO MID 90'S, VSS, CHRONIC QUIGLEY PATENT DRAINING CLEAR YELLOW URINE TO GRAVITY, PRN PAIN MEDICATION GIVEN X1 PER EMAR, NO ACUTE OVERNIGHT EVENTS, CONTINUE POC
[2023-05-16 05:39] LABS: BASOPHILS ABSOLUTE AUTO 0.03 K/mm3 (0.00-0.23); BASOPHILS PERCENT AUTO 1 % (0-2); EOSINOPHILS ABSOLUTE AUTO 0.13 K/mm3 (0.00-0.68); EOSINOPHILS PERCENT AUTO 2 % (0-6); Hematocrit 25.1 % (37.0-53.0); Hemoglobin 7.9 g/dL (13.5-17.5); IMMATURE GRAN ABSOLUTE AUTO 0.01 K/mm3 (0.00-0.10); IMMATURE GRAN PERCENT AUTO 0 % (0-1); LYMPHOCYTES ABSOLUTE AUTO 0.74 K/mm3 (0.84-5.20); LYMPHOCYTES PERCENT AUTO 12 % (21-46); MONOCYTES ABSOLUTE AUTO 0.53 K/mm3 (0.16-1.47); MONOCYTES PERCENT AUTO 9 % (4-13); Mean Corpuscular HGB 28.5 pg (26.0-34.0); Mean Corpuscular HGB Conc 31.5 g/dL (31.5-36.5); Mean Corpuscular Volume 91 fL (80-100); Mean Platelet Volume 10.8 fL (9.1-12.4); NEUTROPHILS ABSOLUTE AUTO 4.65 K/mm3 (1.96-9.15); NEUTROPHILS PERCENT AUTO 76 % (41-73); Platelet Count 151 K/mm3 (150-400); RDW Coefficient Variation 15.2 % (11.7-14.2); RDW Standard Deviation 50.5 fL (35.1-46.3); Red Blood Cell Count 2.77 M/mm3 (4.30-5.90); White Blood Cell Count 6.09 K/mm3 (4.00-11.30)
[2023-05-16 05:49] LABS: Albumin/Globulin Ratio 0.6 (0.8-1.8); Bilirubin, Total 0.2 mg/dL (0.1-1.0); Bun/Creatinine Ratio 14.3 (12.0-20.0); Creatinine, Blood 2.59 mg/dL (0.60-1.20); Globulin, Blood 3.6 g/dL (2.2-4.0); Potassium, Blood 5.1 mmol/L (3.5-5.5); Total Protein, Blood 5.6 g/dL (6.4-8.2)
[2023-05-16 06:33] VITALS: BP 148/67
[2023-05-16 08:04] VITALS: BP 157/79
--- NOTE | 2023-05-16 17:50 | NUR ---
SHIFT SUMMARY: PATIENT A&OX4. CALM, PLEASANT AND COOPERATIVE c CARE. USES CALL LIGHT APPROPRIATELY AND ABLE TO MAKE NEEDS KNOWN. DENIES CP/PRESSURE, SOB, N/V, AND DIZZINESS. REPORTS PAIN TO RIB CAGE WHEN HE COUGHS, OFFERED PAIN MEDS BUT DECLINE. ON TELE, SR HR IN THE 70'S BPM. LUNGS STILL COARSE T/O TO AUSCULTATION. RECEIVED OT DOSE OF IV LASIX. QUIGLEY PATENT, DRAINING CLEAR YELLOW URINE c SOME WHITE SIDEMENTS TO GRAVITY c TOTAL URINE OUTPUT OF 2000 MLS. BS RANGES 130-220 THIS SHIFT, RECEIVED INSULIN PER EMAR COVERAGE. REPOSITONED AND BLE'S ELEVATED ON PILLOWS. NO BM SINCE 05/10/23. RECEIVED SCHEDULED MEDS PER EMAR. VITAL SIGNS REVIEWED. PIV TO FIDE AND RAC SALINE LOCKED. BED ALARM ON FOR SAFETY. CALL LIGHT IN REACH.
[2023-05-16 20:32] VITALS: BP 151/70
[2023-05-17 02:27] VITALS: BP 154/65
[2023-05-17 06:12] LABS: Hematocrit 25.8 % (37.0-53.0); Mean Corpuscular HGB 28.2 pg (26.0-34.0); Mean Corpuscular Volume 91 fL (80-100); Mean Platelet Volume 10.6 fL (9.1-12.4); Platelet Count 162 K/mm3 (150-400); RDW Coefficient Variation 15.2 % (11.7-14.2); RDW Standard Deviation 50.4 fL (35.1-46.3); Red Blood Cell Count 2.84 M/mm3 (4.30-5.90); White Blood Cell Count 7.72 K/mm3 (4.00-11.30)
[2023-05-17 06:46] LABS: Albumin/Globulin Ratio 0.5 (0.8-1.8); Bilirubin, Total 0.2 mg/dL (0.1-1.0); Calcium, Blood 8.3 mg/dL (8.5-10.1); Creatinine, Blood 2.69 mg/dL (0.60-1.20); Globulin, Blood 3.7 g/dL (2.2-4.0); Potassium, Blood 5.2 mmol/L (3.5-5.5); Total Protein, Blood 5.7 g/dL (6.4-8.2)
[2023-05-17 07:15] VITALS: BP 160/80
[2023-05-17 14:39] VITALS: BP 146/75
[2023-05-17 15:03] LABS: Influenza A, PCR NEGATIVE (NEGATIVE); Influenza B, PCR NEGATIVE (NEGATIVE); Resp Syncytial Virus, PCR NEGATIVE (NEGATIVE); SARS-Cov-2 (COVID-19) PCR, MMC NEGATIVE (NEGATIVE)
--- NOTE | 2023-05-17 16:48 | NUR ---
SHIFT SUMMARY A&OX4, COOPERATIVE. MUMBLES WHEN COMMUNICATING. NO ACUTE CHANGES THIS SHIFT. PATIENT TRANSFERRED TO RECLINER CHAIR VIA LEFT AND SAT UP FOR ABOUT AN HOUR THIS AFTERNOON PER PT'S ENCOURAGEMENT. PATIENT COMPLAINED OF PAIN TO RIGHT HIP AND "BUTT PAIN" WHILE REPOSITIONING AND TRANSFERRING TO RECLINER. PREVENTATIVE MEPILEX ON COCCYX, TISSUE IS BLANCHABLE. O2 SATS IN THE LOW TO MID 90'S ON 2LI VIA NC T/O SHIFT. LUNGS ARE COARSE T/O. DEEP, WET COUGH NOTED. PLAN FOR DISCHARGE TO SNF TOMORROW. PATIENT CURRENTLY LAYING IN BED WAITING FOR DINNER. CALL LIGHT IS WITHIN REACH.
[2023-05-17 19:22] VITALS: BP 142/69
[2023-05-18 02:53] VITALS: BP 163/75
[2023-05-18 05:43] LABS: Albumin, Blood 2.1 g/dL (3.4-5.0); Anion Gap 5 mmol/L (6-16); Blood Urea Nitrogen 34 mg/dL (8-24); Bun/Creatinine Ratio 12.7 (12.0-20.0); CO2, Blood 25 mmol/L (21-32); Chloride, Blood 110 mmol/L (98-108); Creatinine, Blood 2.67 mg/dL (0.60-1.20); Glomerular Filtration Rate 26 (60-); Glucose, Blood 259 mg/dL (70-99); Phosphorus, Blood 4.2 mg/dL (2.5-4.9); Potassium, Blood 5.5 mmol/L (3.5-5.5); Sodium, Blood 140 mmol/L (136-145)
--- NOTE | 2023-05-18 06:29 | NUR ---
Shift Summary Pt lungs wet, coarse throughout with frequent productive coughing. Some wheezing. C/O chest pain 3/10 which is much worse when coughing, medicated per EMAR. On 2L O2, SPO2>93%. Slept off and on through the night. AOx4, cooperative with care, mumbled speech.
[2023-05-18 07:28] VITALS: BP 174/85
[2023-05-18] MEDS ORDERED: FURO40 PO (13:58)
--- NOTE | 2023-05-18 14:35 | NUR ---
DISCHARGE A&OX4, COOPERATIVE WITH CARE. REPORTED CHEST PAIN R/T TO FRACTURED RIBS FROM CHEST COMPRESSIONS. REOPRTED PAIN TO COCCYX. MEDICATED PER EMAR. REPOSITIONED Q2 T/O SHIFT. NO ACUTE EVENTS THIS SHIFT. REPORT GIVEN TO SHALINI ROACH AT [facility]. MEDICAL TRANSPORT TOOK PATIENT AT 1435 VIA WHEELCHAIR.
== END 2023-05-18 14:27 | DRG 291 ==
LOC: ER 09:11 → MEDS 11:14 → PCU 11:14 → ICUE 11:14 → PCU 05-11 20:55 → MEDS 05-14 16:34 → ENPENDDIS 05-18 14:21 → MEDS 05-18 14:27
PROVIDERS: Emergency Medicine; Family Medicine; Internal Medicine Critical Care Medicine; Student in an Organized Health Care Education/Training Program; ADMIT Hospitalist
PROC: 0BH17EZ Insertion of Endotracheal Airway into Trachea, Via Natural or Artificial Opening (ICD-10-PCS; 2023-05-10)
PROC: 5A1945Z Respiratory Ventilation, 24-96 Consecutive Hours (ICD-10-PCS; 2023-05-10)
PROC: 3E033XZ Introduction of Vasopressor into Peripheral Vein, Percutaneous Approach (ICD-10-PCS; 2023-05-10)
PROC: 5A0935A Assistance with Respiratory Ventilation, Less than 24 Consecutive Hours, High Flow/Velocity Cannula (ICD-10-PCS; principal; 2023-05-16)
DX: I13.0 Hypertensive heart and chronic kidney disease with heart failure and stage 1 through stage 4 chronic kidney disease, or unspecified chronic kidney disease (principal); I46.8 Cardiac arrest due to other underlying condition; I50.31 Acute diastolic (congestive) heart failure; J96.01 Acute respiratory failure with hypoxia; S22.41XA Multiple fractures of ribs, right side, initial encounter for closed fracture; N17.9 Acute kidney failure, unspecified; N39.0 Urinary tract infection, site not specified; J98.11 Atelectasis; Z20.822 Contact with and (suspected) exposure to COVID-19; I45.10 Unspecified right bundle-branch block; N18.9 Chronic kidney disease, unspecified; E11.22 Type 2 diabetes mellitus with diabetic chronic kidney disease; K21.9 Gastro-esophageal reflux disease without esophagitis; E66.9 Obesity, unspecified; D63.1 Anemia in chronic kidney disease; E78.5 Hyperlipidemia, unspecified; E03.9 Hypothyroidism, unspecified; F32.A Depression, unspecified; I87.8 Other specified disorders of veins; X58.XXXA Exposure to other specified factors, initial encounter; Z88.0 Allergy status to penicillin; Z88.8 Allergy status to other drugs, medicaments and biological substances; Z79.4 Long term (current) use of insulin; Z79.899 Other long term (current) drug therapy; Z79.2 Long term (current) use of antibiotics; Z79.82 Long term (current) use of aspirin; Z79.890 Hormone replacement therapy; Z90.49 Acquired absence of other specified parts of digestive tract; Z98.890 Other specified postprocedural states; Z87.891 Personal history of nicotine dependence; Z68.36 Body mass index [BMI] 36.0-36.9, adult
CPT/HCPCS: 0241U; 31720; 36415; 51702; 70450; 71045; 71046; 71260; 76770; 76882; 80047; 80048; 80053; 80069; 81001; 82607; 82746; 82803; 82947; 83735; 83880; 84100; 84443; 84484; 84540; 85014; 85018; 85025; 85027; 85045; 85379; 87070; 87077; 87086; 87147; 87186; 87205; 93005; 93010; 93306; 93970; 94002; 94003; 94640; 94664; 94760; 94762; 97110; 97162; 97166; 97530; 97535; 99291-25; 99292; A9270; C9113; J0744; J1815; J1940; J2250; J2704; J2930; J3010; J7050; Q9967

== ENCOUNTER 2023-05-19 15:38 | Inpatient (IN) | payer OTHER ==
[2023-05-19] VITALS (15 sets, daily range): BP systolic 108–139; BP diastolic 56–115
[~2023-05-19] VITALS: Ht 185.4 cm; Wt 106.6 kg
[~2023-05-19 15:38] MED LIST changes: +FURO40 PO
[2023-05-19 16:15] LABS: Calcium, Ionized (POC) 1.25 mmol/L (1.10-1.46); Chloride (POC) 106 mmol/L (98-108); Creatinine (POC) 2.8 mg/dL (0.8-1.3); Glucose (ISTAT POC) 37 mg/dL (70-99); Hemoglobin (POC) 10.5 g/dL (13.5-17.5); Potassium (POC) 4.9 mmol/L (3.5-5.5); Sodium (POC) 140 mmol/L (135-148); Total CO2 (POC) 26 mmol/L (21-32)
[2023-05-19 17:46] LABS: BASOPHILS ABSOLUTE AUTO 0.06 K/mm3 (0.00-0.23); BASOPHILS PERCENT AUTO 1 % (0-2); EOSINOPHILS ABSOLUTE AUTO 0.16 K/mm3 (0.00-0.68); EOSINOPHILS PERCENT AUTO 2 % (0-6); Hematocrit 31.5 % (37.0-53.0); Hemoglobin 9.9 g/dL (13.5-17.5); IMMATURE GRAN ABSOLUTE AUTO 0.04 K/mm3 (0.00-0.10); IMMATURE GRAN PERCENT AUTO 0 % (0-1); LYMPHOCYTES ABSOLUTE AUTO 0.77 K/mm3 (0.84-5.20); LYMPHOCYTES PERCENT AUTO 8 % (21-46); MONOCYTES ABSOLUTE AUTO 0.72 K/mm3 (0.16-1.47); MONOCYTES PERCENT AUTO 8 % (4-13); Mean Corpuscular HGB 28.7 pg (26.0-34.0); Mean Corpuscular HGB Conc 31.4 g/dL (31.5-36.5); Mean Corpuscular Volume 91 fL (80-100); Mean Platelet Volume 10.5 fL (9.1-12.4); NEUTROPHILS ABSOLUTE AUTO 7.59 K/mm3 (1.96-9.15); NEUTROPHILS PERCENT AUTO 81 % (41-73); Platelet Count 190 K/mm3 (150-400); RDW Coefficient Variation 14.6 % (11.7-14.2); Red Blood Cell Count 3.45 M/mm3 (4.30-5.90); White Blood Cell Count 9.34 K/mm3 (4.00-11.30)
[2023-05-19 20:03] LABS: Albumin, Blood 2.5 g/dL (3.4-5.0); Albumin/Globulin Ratio 0.6 (0.8-1.8); Bilirubin, Total 0.3 mg/dL (0.1-1.0); Bun/Creatinine Ratio 12.8 (12.0-20.0); Calcium, Blood 8.8 mg/dL (8.5-10.1); Creatinine, Blood 2.57 mg/dL (0.60-1.20); Globulin, Blood 4.5 g/dL (2.2-4.0)
[2023-05-19 20:18] LABS: Source, Urine Foley catheter
[2023-05-19 21:05] LABS: SARS-Cov-2 (COVID-19) PCR, MMC NEGATIVE (NEGATIVE)
[2023-05-19 21:35] LABS: U Amphetamine Screen Not Detected; U Barbituate Screen Not Detected; U Benzodiazapine Screen Not Detected; U Buprenorphine Screen Not Detected; U Cannabinoids Screen Not Detected; U Cocaine Screen Not Detected; U Methadone Screen Not Detected; U Methamphetamine Screen Not Detected; U Opiates Screen Not Detected; U Oxycodone Screen Not Detected; U Phencyclidine Screen Not Detected; U Propoxyphene Screen Not Detected
[2023-05-19 22:42] LABS: Bun/Creatinine Ratio 14.2 (12.0-20.0); Calcium, Blood 8.2 mg/dL (8.5-10.1); Creatinine, Blood 2.47 mg/dL (0.60-1.20); Potassium, Blood 5.3 mmol/L (3.5-5.5)
[2023-05-19 22:59] LABS: Appearance, Urine Clear (Clear); Bilirubin, Urine Neg (Neg); Blood, Urine 2+ (Neg); Color, Urine Yellow (P-Yellow); Glucose Qualitative, Urine Neg (Neg); Ketones, Urine Neg (Neg); Leukocyte Esterase, Urine 3+ (Neg); Nitrite, Urine Neg (Neg); Protein, Urine 3+ (Neg); Specific Gravity, Urine 1.015 (1.003-1.022); Urobilinogen, Urine NORM (Normal)
[2023-05-20] VITALS (23 sets, daily range): BP systolic 110–144; BP diastolic 53–95
[2023-05-20 00:08] LABS: Bacteria Mod /hpf; Red Blood Cells, Urine 0-2 /hpf (0-2); Squamous Epithelial Cells Not Seen /hpf (Few)
[2023-05-20 04:22] LABS: BASOPHILS ABSOLUTE AUTO 0.03 K/mm3 (0.00-0.23); BASOPHILS PERCENT AUTO 0 % (0-2); EOSINOPHILS ABSOLUTE AUTO 0.07 K/mm3 (0.00-0.68); EOSINOPHILS PERCENT AUTO 1 % (0-6); Hematocrit 27.9 % (37.0-53.0); Hemoglobin 8.7 g/dL (13.5-17.5); IMMATURE GRAN ABSOLUTE AUTO 0.04 K/mm3 (0.00-0.10); IMMATURE GRAN PERCENT AUTO 1 % (0-1); LYMPHOCYTES PERCENT AUTO 7 % (21-46); MONOCYTES ABSOLUTE AUTO 0.66 K/mm3 (0.16-1.47); MONOCYTES PERCENT AUTO 8 % (4-13); Mean Corpuscular HGB 28.2 pg (26.0-34.0); Mean Corpuscular HGB Conc 31.2 g/dL (31.5-36.5); Mean Corpuscular Volume 90 fL (80-100); Mean Platelet Volume 10.4 fL (9.1-12.4); NEUTROPHILS ABSOLUTE AUTO 7.37 K/mm3 (1.96-9.15); NEUTROPHILS PERCENT AUTO 84 % (41-73); Platelet Count 159 K/mm3 (150-400); RDW Coefficient Variation 14.5 % (11.7-14.2); RDW Standard Deviation 47.9 fL (35.1-46.3); Red Blood Cell Count 3.09 M/mm3 (4.30-5.90); White Blood Cell Count 8.77 K/mm3 (4.00-11.30)
[2023-05-20 04:39] LABS: International Normalized Ratio 1.09; Prothrombin Time Results 11.4 Sec (9.7-11.5)
[2023-05-20 04:57] LABS: Magnesium, Blood 1.2 mg/dL (1.6-2.4)
[2023-05-20 04:58] LABS: Albumin, Blood 2.1 g/dL (3.4-5.0); Albumin/Globulin Ratio 0.6 (0.8-1.8); Bilirubin, Total 0.3 mg/dL (0.1-1.0); Calcium, Blood 7.8 mg/dL (8.5-10.1); Creatinine, Blood 2.46 mg/dL (0.60-1.20); Globulin, Blood 3.6 g/dL (2.2-4.0); Potassium, Blood 5.2 mmol/L (3.5-5.5); Total Protein, Blood 5.7 g/dL (6.4-8.2)
--- NOTE | 2023-05-20 06:28 | NUR ---
PATIENT AOX3, MUMBLED SPEECH. CONTINUED HYPOGLYCEMIA OVERNIGHT. ONE AMP OF D50, 2MG OF GLUCAGON, 0.5L OF D20 GTT ADMINISTERED IN ICU, IN ADDITION TO CURRENT D10 GTT INFUSING AT 75 ML/HR. BG ARE NOW IN THE 140'S. SR WITH STABLE BP. 2L NC. NPO. CHRONIC INDWELLING QUIGLEY (REPLACED IN ED).
--- NOTE | 2023-05-20 07:44 | NUR ---
AM NOTE... ASSUMED CARE OF PT AT 0700, PT IS A&Ox3 PT UNABLE TO REMEMBER THE DAY/DATE. HE IS IN SR w/1ST DEGREE IN THE 80'S-90'S BP IS STABLE WITH MAPS>65. NO EDEMA NOTED ON THIS ASSESSMENT. HE IS ON 2L NC WITH O2 SATS>95% L/S COARSE W/SCATTERED WHEEZES T/O MORE SO ON THE RIGHT THAN THE LEFT. RR IS IN THE 20'S. BT PRESENT AND HYPERACTIVE, ABD IS SOFT AND NONTENDER TO PALPATION. PT HAS A CHRONIC QUIGLEY WHICH IS PATENT AND DRAINING TO GRAVITY. THE PT'S CBG THIS AM WAS 144, D10 IS RUNNING AT 75MLS/HR PER ORDERS. PT IS REQUESTING BREAKFAST THIS MORNING. CALL LIGHT IN REACH WILL CONTINUE TO MONITOR.
[2023-05-20 10:15] LABS: Vancomycin, Random 16.8 ug/mL
--- NOTE | 2023-05-20 17:28 | NUR ---
SHIFT SUMMARY.... NO ACUTE NEGATIVE CHANGES NOTED THIS SHIFT. THE D10 WAS TITRATED FROM 75MLS/HR TO 50MLS/HR THEN CHANGED TO D5 AT 50MLS/HR, PT'S CBGs HAVE BEEN >200 WITH THE D5 AT 50MLS/HR. THE PT IS EATING 100% OF HIS MEALS. PT'S O2 WAS TITRATED OFF FROM 2L NC TO RA WITH O2 SATS>90%. SPUTUM SAMPLE WAS SENT TO THE LAB PER ORDERS. OTHER VS STABLE. CALL LIGHT IN REACH WILL CONTINUE TO MONITOR UNTIL REPORT IS GIVEN TO ONCOMING RN.
--- NOTE | 2023-05-20 19:56 | NUR ---
ASSUMED CARE OF PATIENT AT 1900. RECEIVED REPORT FROM LUCILA LOYA. VSS AND NO ACUTE NEEDS IDENTIFIED AT THIS TIME. SEE SHIFT ASSESS FOR FULL ASSESSMENT DETAILS.
[2023-05-21] VITALS: BP 128/57
--- NOTE | 2023-05-21 00:44 | NUR ---
REPORT GIVEN TO MELVI RN - ROOM 302.
--- NOTE | 2023-05-21 01:11 | NUR ---
PATIENT TRANSFERRED TO [facility] FLOOR ROOM 302 @ 1696. LEFT IN CARE OF MELVI LOYA.
--- NOTE | 2023-05-21 03:44 | NUR ---
ASSUMED CARE OF PT FROM ICU, A/O X 4 APPROPRIATE BED BOUND CHRONIC QUIGLEY AND POOR SKIN, PT PLACED ON RIGHT SIDE. NO DISTRESS AND MAKES HIS NEEDS KNOWN
--- NOTE | 2023-05-21 03:58 | NUR ---
SHIFT ASSESSMENT PT DID WELL THROUGHOUT THE NIGHT NO C/O PAIN NO DISTRESS, INDEPENDANT IN RM MAINTAINED O2 SAT ON 2 LITTERS AND CPAP. HOPING TO GO HOME THIS MORNING.
[2023-05-21 05:10] LABS: BASOPHILS ABSOLUTE AUTO 0.03 K/mm3 (0.00-0.23); BASOPHILS PERCENT AUTO 1 % (0-2); EOSINOPHILS ABSOLUTE AUTO 0.04 K/mm3 (0.00-0.68); EOSINOPHILS PERCENT AUTO 1 % (0-6); Hematocrit 23.5 % (37.0-53.0); Hemoglobin 7.3 g/dL (13.5-17.5); IMMATURE GRAN ABSOLUTE AUTO 0.02 K/mm3 (0.00-0.10); IMMATURE GRAN PERCENT AUTO 0 % (0-1); LYMPHOCYTES ABSOLUTE AUTO 0.82 K/mm3 (0.84-5.20); LYMPHOCYTES PERCENT AUTO 14 % (21-46); MONOCYTES ABSOLUTE AUTO 0.66 K/mm3 (0.16-1.47); MONOCYTES PERCENT AUTO 12 % (4-13); Mean Corpuscular HGB 28.1 pg (26.0-34.0); Mean Corpuscular HGB Conc 31.1 g/dL (31.5-36.5); Mean Corpuscular Volume 90 fL (80-100); Mean Platelet Volume 10.3 fL (9.1-12.4); NEUTROPHILS ABSOLUTE AUTO 4.19 K/mm3 (1.96-9.15); NEUTROPHILS PERCENT AUTO 73 % (41-73); Platelet Count 149 K/mm3 (150-400); RDW Coefficient Variation 14.6 % (11.7-14.2); RDW Standard Deviation 47.8 fL (35.1-46.3); White Blood Cell Count 5.76 K/mm3 (4.00-11.30)
[2023-05-21 05:32] LABS: Anion Gap 5 mmol/L (6-16); Blood Urea Nitrogen 35 mg/dL (8-24); Bun/Creatinine Ratio 13.6 (12.0-20.0); CO2, Blood 25 mmol/L (21-32); Calcium, Blood 7.5 mg/dL (8.5-10.1); Chloride, Blood 109 mmol/L (98-108); Creatinine, Blood 2.58 mg/dL (0.60-1.20); Glomerular Filtration Rate 27 (60-); Glucose, Blood 232 mg/dL (70-99); Magnesium, Blood 1.8 mg/dL (1.6-2.4); Phosphorus, Blood 4.1 mg/dL (2.5-4.9); Sodium, Blood 139 mmol/L (136-145)
[2023-05-21 05:52] VITALS: BP 137/67
[2023-05-21 07:37] VITALS: BP 146/70
--- NOTE | 2023-05-21 12:35 | NUR ---
Brief supportive visit this afternoon. Pt resting in bed eating his lunch. Pt reports feeling better. Engaged in brief therapeutic conversation regarding advanced directives. Pt reports he will consider completing an AD. Educated on each section to complete and discussed each scenario. Ended visit to allow Pt to finish his lunch. Palliative Care will remain available.
[2023-05-21 12:36] LABS: Influenza A, PCR NEGATIVE (NEGATIVE); Influenza B, PCR NEGATIVE (NEGATIVE); Resp Syncytial Virus, PCR NEGATIVE (NEGATIVE); SARS-Cov-2 (COVID-19) PCR, MMC NEGATIVE (NEGATIVE)
[2023-05-21] MEDS ORDERED: GLUCAGEN1 MG/1 M1 (14:13)
[2023-05-21] MEDS ORDERED: INSULANI SC (14:15)
[2023-05-21] MEDS ORDERED: HUMALOG KW100 UNIT/1 SC (14:17)
[2023-05-21] MEDS ORDERED: LEVFLO500 PO (14:18)
--- NOTE | 2023-05-21 15:28 | NUR ---
No acute changes, CBGs stable. Patient medically stable to DC back to SNF. Therapy tx/eval and recommending SNF. Transport came at 1430 and patient left [facility].
== END 2023-05-21 14:30 | DRG 917 ==
LOC: ER 15:38 → ICUE 15:39 → ER 19:35 → ICUE 19:48 → MEDS 05-21 01:07 → ENPENDDIS 05-21 14:10 → MEDS 05-21 14:30
PROVIDERS: Emergency Medicine; Nurse Practitioner Acute Care; Student in an Organized Health Care Education/Training Program; ADMIT Internal Medicine
PROC: 0T9B70Z Drainage of Bladder with Drainage Device, Via Natural or Artificial Opening (ICD-10-PCS; principal; 2023-05-19)
DX: T38.3X1A Poisoning by insulin and oral hypoglycemic [antidiabetic] drugs, accidental (unintentional), initial encounter (principal); G92.8 Other toxic encephalopathy; J18.9 Pneumonia, unspecified organism; J96.01 Acute respiratory failure with hypoxia; I13.0 Hypertensive heart and chronic kidney disease with heart failure and stage 1 through stage 4 chronic kidney disease, or unspecified chronic kidney disease; J96.11 Chronic respiratory failure with hypoxia; N18.4 Chronic kidney disease, stage 4 (severe); E11.65 Type 2 diabetes mellitus with hyperglycemia; E11.649 Type 2 diabetes mellitus with hypoglycemia without coma; Z20.822 Contact with and (suspected) exposure to COVID-19; I50.9 Heart failure, unspecified; J44.9 Chronic obstructive pulmonary disease, unspecified; E11.22 Type 2 diabetes mellitus with diabetic chronic kidney disease; D63.1 Anemia in chronic kidney disease; R00.1 Bradycardia, unspecified; E83.42 Hypomagnesemia; N40.0 Benign prostatic hyperplasia without lower urinary tract symptoms; E78.5 Hyperlipidemia, unspecified; K21.9 Gastro-esophageal reflux disease without esophagitis; E03.9 Hypothyroidism, unspecified; I87.8 Other specified disorders of veins; F32.A Depression, unspecified; Z88.0 Allergy status to penicillin; Z88.8 Allergy status to other drugs, medicaments and biological substances; Z79.899 Other long term (current) drug therapy; Z79.4 Long term (current) use of insulin; Z79.890 Hormone replacement therapy; Z79.82 Long term (current) use of aspirin; Z90.49 Acquired absence of other specified parts of digestive tract; Z98.890 Other specified postprocedural states; Z87.891 Personal history of nicotine dependence; X58.XXXA Exposure to other specified factors, initial encounter
CPT/HCPCS: 0241U; 36415; 51702; 70450; 71045; 80047; 80048; 80053; 80069; 80202; 81001; 82947; 83605; 83735; 83880; 83930; 84145; 84439; 84443; 84484; 85014; 85025; 85610; 87040; 87070; 87081; 87086; 87205; 93005; 93010; 94640; 94664; 94760; 94762; 96365; 96366; 96367; 96372; 96375; 96376; 97110; 97162; 97166; 97530; 99285-25; A9270; C9113; G0008; G0378; J1610; J1644; J1815; J1940; J1956; J2185; J3370; J3475; J7030; J7050; J7070; Q2036; U0002

== ENCOUNTER → 2023-07-12 | Outpatient (CLI) | payer MEDICARE, OTHER ==
[~2023-07-12] MED LIST changes: +ARANESP40 MCG/0.1 SC; +CUBICIN RF500 M1 IV; +GLUCAGEN1 MG/1 M1; +HUMALOG KW100 UNIT/1 SC; +INSULANI SC; +LEVFLO500 PO; +VITAMIN D31000 UNI1 PO
[2023-07-12 14:11] LABS: BASOPHILS ABSOLUTE AUTO 0.03 K/mm3 (0.00-0.23); BASOPHILS PERCENT AUTO 0 % (0-2); EOSINOPHILS PERCENT AUTO 0 % (0-6); Hematocrit 27.7 % (37.0-53.0); Hemoglobin 8.9 g/dL (13.5-17.5); IMMATURE GRAN ABSOLUTE AUTO 0.03 K/mm3 (0.00-0.10); IMMATURE GRAN PERCENT AUTO 0 % (0-1); LYMPHOCYTES ABSOLUTE AUTO 0.51 K/mm3 (0.84-5.20); LYMPHOCYTES PERCENT AUTO 4 % (21-46); MONOCYTES ABSOLUTE AUTO 1.17 K/mm3 (0.16-1.47); MONOCYTES PERCENT AUTO 9 % (4-13); Mean Corpuscular HGB 26.4 pg (26.0-34.0); Mean Corpuscular HGB Conc 32.1 g/dL (31.5-36.5); Mean Corpuscular Volume 82 fL (80-100); Mean Platelet Volume 8.9 fL (9.1-12.4); NEUTROPHILS ABSOLUTE AUTO 11.31 K/mm3 (1.96-9.15); NEUTROPHILS PERCENT AUTO 87 % (41-73); Platelet Count 232 K/mm3 (150-400); RDW Coefficient Variation 15.2 % (11.7-14.2); RDW Standard Deviation 45.2 fL (35.1-46.3); Red Blood Cell Count 3.37 M/mm3 (4.30-5.90); White Blood Cell Count 13.05 K/mm3 (4.00-11.30)
[2023-07-12 15:25] LABS: Alanine Aminotransfer (ALT/SGP 15 U/L (12-78); Albumin, Blood 2.6 g/dL (3.4-5.0); Albumin/Globulin Ratio 0.6 (0.8-1.8); Alk Phos 94 U/L (50-136); Anion Gap 13 mmol/L (6-16); Aspartate Aminotrans (AST/SGOT 11 U/L (12-37); Bilirubin, Direct <0.1 mg/dL (0.0-0.3); Bilirubin, Indirect Unable to Calculate mg/dL (0.1-0.7); Bilirubin, Total 0.3 mg/dL (0.1-1.0); Blood Urea Nitrogen 74 mg/dL (8-24); Bun/Creatinine Ratio 21.4 (12.0-20.0); CHOL/HDL RATIO 2.5; CO2, Blood 12 mmol/L (21-32); Calcium, Blood 8.2 mg/dL (8.5-10.1); Chloride, Blood 113 mmol/L (98-108); Cholesterol 79 mg/dL (50-200); Creatinine, Blood 3.46 mg/dL (0.60-1.20); Globulin, Blood 4.7 g/dL (2.2-4.0); Glomerular Filtration Rate 19 (60-); Glucose, Blood 271 mg/dL (70-99); HDL Cholesterol 31 mg/dL (>39); LDL/HDL RATIO 1.1; Low Density Lipoprotein Chol 33 mg/dL (0-110); Phosphorus, Blood 3.9 mg/dL (2.5-4.9); Sodium, Blood 138 mmol/L (136-145); Total Protein, Blood 7.3 g/dL (6.4-8.2); Triglycerides 73 mg/dL (30-160); Very Low Density Lipoprot Chol 14 mg/dL (6-32)
== END ==
LOC: LAB SHORT 11:30 → LAB 11:30
PROVIDERS: Internal Medicine Nephrology
DX: N18.30 Chronic kidney disease, stage 3 unspecified (principal); D63.1 Anemia in chronic kidney disease; N40.1 Benign prostatic hyperplasia with lower urinary tract symptoms; N13.30 Unspecified hydronephrosis; R76.9 Abnormal immunological finding in serum, unspecified; G60.9 Hereditary and idiopathic neuropathy, unspecified; D52.8 Other folate deficiency anemias
CPT/HCPCS: 80053; 80061; 82248; 84100; 85025; G0103

== ENCOUNTER 2023-07-14 11:17 | Inpatient (IN) | payer OTHER ==
[~2023-07-14] VITALS: Ht 185.4 cm; Wt 103.7 kg
[~2023-07-14 11:17] MED LIST changes: -ARANESP40 MCG/0.1 SC; -CUBICIN RF500 M1 IV; -VITAMIN D31000 UNI1 PO
[2023-07-14 12:43] LABS: Albumin, Blood 2.2 g/dL (3.4-5.0); Albumin/Globulin Ratio 0.4 (0.8-1.8); Bilirubin, Total 0.3 mg/dL (0.1-1.0); Bun/Creatinine Ratio 21.5 (12.0-20.0); Calcium, Blood 8.4 mg/dL (8.5-10.1); Creatinine, Blood 3.62 mg/dL (0.60-1.20); Globulin, Blood 4.9 g/dL (2.2-4.0); Magnesium, Blood 1.6 mg/dL (1.6-2.4); Total Protein, Blood 7.1 g/dL (6.4-8.2)
[2023-07-14 12:46] LABS: BASOPHILS ABSOLUTE AUTO 0.03 K/mm3 (0.00-0.23); BASOPHILS PERCENT AUTO 0 % (0-2); EOSINOPHILS PERCENT AUTO 0 % (0-6); Hematocrit 25.9 % (37.0-53.0); Hemoglobin 8.7 g/dL (13.5-17.5); IMMATURE GRAN ABSOLUTE AUTO 0.09 K/mm3 (0.00-0.10); IMMATURE GRAN PERCENT AUTO 1 % (0-1); LYMPHOCYTES ABSOLUTE AUTO 0.62 K/mm3 (0.84-5.20); LYMPHOCYTES PERCENT AUTO 4 % (21-46); MONOCYTES ABSOLUTE AUTO 1.57 K/mm3 (0.16-1.47); MONOCYTES PERCENT AUTO 10 % (4-13); Mean Corpuscular HGB 26.9 pg (26.0-34.0); Mean Corpuscular HGB Conc 33.6 g/dL (31.5-36.5); Mean Corpuscular Volume 80 fL (80-100); Mean Platelet Volume 9.8 fL (9.1-12.4); NEUTROPHILS ABSOLUTE AUTO 14.06 K/mm3 (1.96-9.15); NEUTROPHILS PERCENT AUTO 86 % (41-73); NRBC ABSOLUTE 0.02 K/mm3 (0.00-0.02); NRBC Auto 0.1 /100 WBC (0.0-0.2); Platelet Count 235 K/mm3 (150-400); RDW Coefficient Variation 14.9 % (11.7-14.2); RDW Standard Deviation 43.9 fL (35.1-46.3); Red Blood Cell Count 3.24 M/mm3 (4.30-5.90); White Blood Cell Count 16.37 K/mm3 (4.00-11.30)
[2023-07-14 13:09] LABS: Source, Urine Foley catheter
[2023-07-14 13:19] LABS: Appearance, Urine Cloudy (Clear); Bilirubin, Urine Neg (Neg); Blood, Urine 5+ (Neg); Color, Urine Yellow (P-Yellow); Glucose Qualitative, Urine 1+ (Neg); Ketones, Urine Neg (Neg); Leukocyte Esterase, Urine 3+ (Neg); Nitrite, Urine Neg (Neg); Protein, Urine 4+ (Neg); Specific Gravity, Urine 1.015 (1.003-1.022); Urobilinogen, Urine NORM (Normal)
[2023-07-14 13:30] LABS: Bacteria Many /hpf; Red Blood Cells, Urine 25-50 /hpf (0-2); Squamous Epithelial Cells Few /hpf (Few); White Blood Cells, Urine 25-50 /hpf (0-5); Yeast/Fungi Urine Many /hpf
[2023-07-14 13:32] LABS: Amorphous Heavy (0-Heavy)
[2023-07-14 14:07] LABS: Influenza A, PCR NEGATIVE (NEGATIVE); Influenza B, PCR NEGATIVE (NEGATIVE); Resp Syncytial Virus, PCR NEGATIVE (NEGATIVE); SARS-Cov-2 (COVID-19) PCR, MMC NEGATIVE (NEGATIVE)
[2023-07-14 18:10] VITALS: BP 151/83
--- NOTE | 2023-07-14 18:41 | NUR ---
TRANSFER UPDATE REPORT RECIVED FROM ER NURSE AT 1724. PT ARRIVED TO PCU AT 1740 VIA GURNEY. PT INITIALLY TO PCU 8, PT MOVED TO PCU 10 FOR LIFT. PT TRANSFERED TO PCU VIA LIFT. PT ON RA AT TIME OF ARRIVAL. NO REPORT OF CHEST PAIN/PRESSURE AT TIME OF ARRIVAL. NO REPORT OF SOB AT TIME OF ARRIVAL. PT GIVEN A BED BATH WHILE ROLLING PT FOR ATTENDS CHANGE AND ASSESSMENT. MULTIPLE WOUND PRESENT AT TIME OF ARRIVAL. CONSENT FOR PICS SIGNED AND PICS OF WOUNDS TAKEN AND IN CHART. PT ARRIVED TO UNIT WITH CHRONIC QUIGLEY IN PLACE. PT REFUSED A STAT LOCK FOR QUIGLEY. PT A/OX4 AT TIME OF ARRIVAL, MUMBLES HIS SPEECH. PT ORIENTED TO ROOM AND CALL LIGHT. BED IN LOWEST POSITION, CALL LIGHT IN REACH. WILL REPORT TO ONCOMING RN.
[2023-07-14 20:34] VITALS: BP 139/64
[2023-07-15] VITALS: BP 132/60
[2023-07-15 03:09] VITALS: BP 132/76
[2023-07-15 05:09] LABS: Alanine Aminotransfer (ALT/SGP 10 U/L (12-78); Albumin, Blood 1.9 g/dL (3.4-5.0); Albumin/Globulin Ratio 0.4 (0.8-1.8); Alk Phos 70 U/L (50-136); Anion Gap 11 mmol/L (6-16); Aspartate Aminotrans (AST/SGOT 9 U/L (12-37); Bilirubin, Total 0.2 mg/dL (0.1-1.0); Blood Urea Nitrogen 82 mg/dL (8-24); Bun/Creatinine Ratio 22.3 (12.0-20.0); CO2, Blood 14 mmol/L (21-32); Calcium, Blood 7.9 mg/dL (8.5-10.1); Chloride, Blood 110 mmol/L (98-108); Creatinine, Blood 3.67 mg/dL (0.60-1.20); Globulin, Blood 4.4 g/dL (2.2-4.0); Glomerular Filtration Rate 18 (60-); Glucose, Blood 298 mg/dL (70-99); Phosphorus, Blood 4.1 mg/dL (2.5-4.9); Potassium, Blood 3.9 mmol/L (3.5-5.5); Sodium, Blood 135 mmol/L (136-145); Total Protein, Blood 6.3 g/dL (6.4-8.2)
--- NOTE | 2023-07-15 05:22 | NUR ---
SHIFT SUMMARY PT A&Ox4, CALLS AND COMMUNICATES NEEDS APPROPRIATELY. SpO2> 92% RA, DENIES SOB, REPORTS DIFFICULTY BREATHING THROUGH NOSE AT TIMES. PT WITH VERY MOIST, CONGESTED COUGH WITH LARGE AMOUNTS OF THICK, STAPLES SPUTUM. HELPED PT MANAGE SPUTUM AND PROVIDED ORAL CARE WITH SUCTION. BP STABLE, SR-ST 90-100's FOR MAJORITY OF SHIFT. AT APPROXIAMTELY 0445, HR UP TO 130-150's, ASYMPTOMATIC, DENIES CP/PRESSURE. EKG OBTAINED. CALL TO NOTIFY PHYSICIAN, NO ANSWER AT THIS TIME, WILL TRY CALLING AGAIN. QUIGLEY CATH REMAINS IN PLACE, PATENT, DRAINING TO GRAVITY. Q2 TURNS PROVIDED. NO OTHER EVENTS, WILL REPORT TO ONCOMING RN.
[2023-07-15 08:34] VITALS: BP 132/66
--- NOTE | 2023-07-15 12:54 | NUR ---
Spoke with Primary RN Jose Antonio and discussed case. Pt is reporting wanting to be Full Code. Pt resting in bed and is A&OX4. Pt appears significantly lethargic. Pt reports still living by himself and has caregivers that come in to assist with his care. Inquired about the differents wounds he has. Listened as Pt reports not liking his caregiver. Inquired if he is refusing care when they are there and Pt deflects question. Engaged in therapeutic discussion regarding code status wishes. Educated on life sustaining treatments including risks and implications to CPR/Intubation. Pt reports wanting to be Full Code even if it means sustaining long terms suffering. He reports at least he would be a live for his loved ones. Inquired about statement regarding love ones. Pt reports not having family but has a dog. Continued therapeutic visit. Spoke with Dr Ramos and discussed case. Placed order in [facility] for Full Code per V/O from Dr Ramos. Plan: Revisit code status wishes once Pt is feeling better to complete POLST. Palliative Care will remain available
[2023-07-15 16:15] VITALS: BP 143/62
--- NOTE | 2023-07-15 18:17 | NUR ---
SHIFT SUMMARY PT A/OX4, PT SHORT WITH STAFF AND REQUIRED MANY REMINDERS AND EDUCATION OF CARE. PT VSS THROUGHOUT SHIFT WITH O2 SATS IN THE 90'S ON RA. NO REPORT OF CHEST PAIN/PRESSURE THROUGHOUT SHIFT. NO REPORT OF SOB/DYPNEA THROUGHOUT SHIFT. PT POSITIVE FOR MRSA, SEE CHARTS. PT MOVED TO MEDICAL STATUS. PT EXPRESSED THAT HE WANTED TO BE FULL CODE. MD NOTIFIED PALLIATIVE CONSULTED TO DISCUSS CODE STATUS WITH PT, SEE PALLIATIVE NOTES. PT CHANGED TO FULL CODE, PURPLE BAND REMOVED. PT SEEN BY UX DESIGNER, WOUNDS CLEANED AND REDRESSED. WOUND TREATMENT ORDERS PLACED, SEE ORDERS. QUIGLEY REMIANED IN PLACE DRAINING TO GRAVITY, PT CONTINUED TO REFUSE STAT LOCK.
[2023-07-15 19:39] VITALS: BP 124/56
--- NOTE | 2023-07-15 22:43 | NUR ---
PT ALERT AND ORIENTED X 4, ABLE TO MAKE NEEDS KNOWN. PT ON RA MAINTAINING 02 SATURATION ABOVE 92%, DENKALIA SOB. HAS INTERMITTENT MOIST COUGH WITH THICK STAPLES MUCUS THAT HE SPITS INTO SUCTION APPROPRIATELY. HR SR 70'S-80'S, PT DENIES CHEST PAIN/PRESSURE. QUIGLEY PATENT AND DRIANING YELLOW URINE WITH GRAVITY. AT 2220 PT EXPRESSED 7/10 PAIN IN HIS HIPS, REPOSITIONED AND MEDICATED PER EMAR. PT HAS BEEN RESTING WITH LIGHTS OFF IN ROOM, CALL LIGHT WITHIN REACH.
[2023-07-15 23:02] VITALS: BP 107/58
[2023-07-16 03:23] VITALS: BP 92/77
[2023-07-16 04:06] LABS: Hematocrit 23.3 % (37.0-53.0); Hemoglobin 7.5 g/dL (13.5-17.5); Mean Corpuscular HGB 26.4 pg (26.0-34.0); Mean Corpuscular HGB Conc 32.2 g/dL (31.5-36.5); Mean Corpuscular Volume 82 fL (80-100); Mean Platelet Volume 9.9 fL (9.1-12.4); Platelet Count 214 K/mm3 (150-400); RDW Coefficient Variation 15.4 % (11.7-14.2); RDW Standard Deviation 46.1 fL (35.1-46.3); Red Blood Cell Count 2.84 M/mm3 (4.30-5.90); White Blood Cell Count 13.47 K/mm3 (4.00-11.30)
[2023-07-16 04:27] LABS: Albumin, Blood 1.9 g/dL (3.4-5.0); Anion Gap 9 mmol/L (6-16); Blood Urea Nitrogen 83 mg/dL (8-24); Bun/Creatinine Ratio 19.8 (12.0-20.0); CO2, Blood 16 mmol/L (21-32); Calcium, Blood 8.3 mg/dL (8.5-10.1); Chloride, Blood 113 mmol/L (98-108); Glomerular Filtration Rate 15 (60-); Glucose, Blood 216 mg/dL (70-99); Magnesium, Blood 1.7 mg/dL (1.6-2.4); Phosphorus, Blood 4.2 mg/dL (2.5-4.9); Potassium, Blood 3.8 mmol/L (3.5-5.5); Sodium, Blood 138 mmol/L (136-145); Vancomycin, Random 15.8 ug/mL
--- NOTE | 2023-07-16 04:34 | NUR ---
SHIFT SUMMARY NO ACUTE CHANGES, SEE PREVIOUS NOTES. PT CONTINUES TO BE ALERT AND ORIENTED X 4, COOPERATIVE WITH CARE AND ABLE TO MAKE NEEDS KNOWN. AROUND 322 PT WOKE UP FOR VITALS AND ASKED FOR A SNACK. HE HAD 2 PACKETS OF SALTINE CRACKERS AND 2 PIECES OF CHEDDAR CHEESE PER HIS REQUEST, PT USED SUCTION NECESSARY INDEPENDENTLY WHILE EATING. BANDAGES TO R CHEST & ABDOMEN CHANGED PER ORDER, PT TOLERATED WELL. PT'S 02 SATURATION CONTINUES TO STAY ABOVE 92% ON RA, PT DENIES SOB. PT'S HR 70'S-80'S AND PT DENIES CHEST PAIN/PRESSURE. PT TURNED Q2 HOURS. YELLOW URINE CONTINUES TO FLOW WITH GRAVITY VIA QUIGLEY CATHETER. MEPILEX IN PLACE ON COCCYX. AROUND 322 WHEN PT WOKE UP FOR VITALS AND A SNACK, THE IV ON HIS L FOREARM WAS COMING OUT SO I REMOVED IT, PT TOLERATED WELL. PT CURRENTY SLEEPING, CALL LIGHT WITHIN REACH.
[2023-07-16 07:56] VITALS: BP 111/62
[2023-07-16 12:38] VITALS: BP 135/81
--- NOTE | 2023-07-16 12:49 | NUR ---
TRANSFER UPDATE REPORT GIVEN TO MED RN AT 1200. PT TRANSFERED AT 1225 VIA HOSPITAL BED AND ON RA. PT BELONGINGS IN BAGS AND TRANSFERED WITH PT. PT GIVEN NOON INSULIN BEFORE TRANSFER, SEE EMAR. PT MEDS GATHERED AND IN GREEN MED FOR TRANSFER. 1/2 NS SODIUM BICARB BAG TAKEN UP BY THIS RN AFTER PT WAS BEING TRAANSFERED BY SALES ENABLEMENT SPECIALIST'S, BAG LEFT ON PT BED.
--- NOTE | 2023-07-16 13:13 | NUR ---
Recveived pt from PCU awake and alert x3. Denies pain. Oriented to room and call light. IV changed. NaBicarb started. Pain and safety maintained. Will continue to monitor.
[2023-07-16 15:21] VITALS: BP 153/63
--- NOTE | 2023-07-16 15:35 | NUR ---
NA BICARB STOPPED TO INFUSE DAPTO FOR HALF HOUR THEN RESTART NA BICARB
--- NOTE | 2023-07-16 17:59 | NUR ---
SHIFT SUMMARY Pt remains A&Ox4 this shift. VSS, Gabapentin effective for gen pain. Repositioned for comfort. Wound care complete this pm. Goodson intact with yellow output. Nabicarb infusing as ordered. Pain and safety maintained. Pt cooperative with care.
[2023-07-16 19:20] VITALS: BP 130/67
--- NOTE | 2023-07-17 04:10 | NUR ---
A/O X 4 AND IS APPROPRIATE, SUCTION WITH CATH AT PT BEDSIDE, PT SUCTIONS SELF. STATES HE HAS GENERALIZED PAIN AND WOULD LIKE SOME PAIN MEDICATION, MD NOTIFIED AND MEDS ORDERED. PT REPOSITIONED, DOES NOT LIKE TO BE TURNED SO RESISTED AND BECAME VERY STIFF. PT TRANSFERED TO 306 BECAUSE LIFTING SYSTEM WAS AVAILABLE IN THAT ROOM. PT SEEMED WARM ON TRANSFER SO WHEN I CHECKED TEMP WAS 101.4 HR IN THE 70'S PT CALM AND SHOWED NO S/S OF DISTRESS. TYLENOL GIVEN, AND WHEN RECHECKED TEMP 100.7, THEN 99.8. WILL CONT TO MONITOR PT FOR ANY NEEDED
[2023-07-17 05:25] VITALS: BP 120/59
[2023-07-17 05:47] LABS: Hematocrit 22.3 % (37.0-53.0); Hemoglobin 7.1 g/dL (13.5-17.5)
[2023-07-17 06:31] LABS: Albumin, Blood 1.8 g/dL (3.4-5.0); Anion Gap 12 mmol/L (6-16); Blood Urea Nitrogen 88 mg/dL (8-24); Bun/Creatinine Ratio 20.9 (12.0-20.0); CO2, Blood 15 mmol/L (21-32); Calcium, Blood 7.7 mg/dL (8.5-10.1); Chloride, Blood 111 mmol/L (98-108); Creatinine, Blood 4.21 mg/dL (0.60-1.20); Glomerular Filtration Rate 15 (60-); Glucose, Blood 168 mg/dL (70-99); Magnesium, Blood 1.7 mg/dL (1.6-2.4); Phosphorus, Blood 4.1 mg/dL (2.5-4.9); Potassium, Blood 3.6 mmol/L (3.5-5.5); Sodium, Blood 138 mmol/L (136-145); Vancomycin, Random 17.3 ug/mL
[2023-07-17 07:14] VITALS: BP 120/62
--- NOTE | 2023-07-17 18:13 | NUR ---
SHIFT SUMMARY A&O X 2-3, VSS. DRESSING CHANGES DONE TO R CHEST WALL, ABD & L SHOULDER. APPETITE IS GOOD. IS PLEASANT & COOPERATIVE WITH ALL CARE. F/C INTACT, URINE OUTPUT THIS SHIFT 350MLS. H&H 7.1 & 22.3, CREAT 4.2, BUN 88. NO TEMP THIS SHIFT.
[2023-07-17 19:23] VITALS: BP 127/76
[2023-07-18] VITALS (10 sets, daily range): BP systolic 115–136; BP diastolic 58–77
--- NOTE | 2023-07-18 04:07 | NUR ---
REPORT RECEIVED. PT IN BETTER SPIRITS TODAY AND COUGHING MORE JUNK UP FROM LUNGS. I ATTEMPED TO REPOSITION PT BUT PT REFUSED BECAUSE HE SATED HE HAD JUST GOTTEN COMFORTABLE. I EXPLAINED THE IMPORTANCE OF MOVING BUT HE REFUSED. PT WOUND TO CHEST WAS CHANGED. CHEST WAS SHAVED AROUND WOUND, THEN WOUND WAS CLEANSED, PACKED AND COVERED WITH MEPILEX. WOUND WAS SWOLLEN AND FILLED WITH PUSS, MINIMAL PAIN NOTED. 0300 PT FINALLY ALLOWED US TO MOVE AND REPOSITION HIM. WILL CONT TO MONITOR
[2023-07-18 05:43] LABS: Hematocrit 19.4 % (37.0-53.0); Hemoglobin 6.3 g/dL (13.5-17.5)
[2023-07-18 06:33] LABS: Albumin, Blood 1.7 g/dL (3.4-5.0); Anion Gap 11 mmol/L (6-16); Blood Urea Nitrogen 81 mg/dL (8-24); Bun/Creatinine Ratio 20.3 (12.0-20.0); CO2, Blood 19 mmol/L (21-32); Calcium, Blood 7.4 mg/dL (8.5-10.1); Chloride, Blood 107 mmol/L (98-108); Creatinine, Blood 3.99 mg/dL (0.60-1.20); Glomerular Filtration Rate 16 (60-); Glucose, Blood 187 mg/dL (70-99); Magnesium, Blood 1.7 mg/dL (1.6-2.4); Phosphorus, Blood 4.3 mg/dL (2.5-4.9); Potassium, Blood 3.5 mmol/L (3.5-5.5); Sodium, Blood 137 mmol/L (136-145)
--- NOTE | 2023-07-18 19:53 | NUR ---
SHIFT SUMMARY A&O X 3, VSS. PT RECEIVED 1 UNIT OF PRBC'S FOR H&H 6.3 & 19.4. NO POST TRANSFUSION REPEAT OF H&H ORDERED FOR TODAY BUT WILL BE DRAWN IN AM, 07/19/23. PT GIVEN HYGIENE CARE AND ALL OF HIS DRESSINGS CHANGED. IS QUITE STIFF & RESISTANT TO ALL ATTEMPTS TO MOVE HIM FOR DAILY HYGIENE CARE. HIS R CHEST WALL WOUND CLEANED AND CALCIUM ALGINATE PLACED IN WOUND BED WITH MEPIPLEX COVERING. MEDICATED FOR C/O PAIN AFTER HYGIENE CARE AND DRESSING CHANGES DONE PER EMAR. PT'S IV LEAKING AFTER BLOOD TRANSFUSION. PLACED NEW IV IN L FA. 20G X 1 ATTEMPT. IS PLEASANT & MOSTLY COOPERATIVE WITH CARE. CALL LIGHT WITHIN REACH & BED IN LOW POSITION.
[2023-07-19 03:36] VITALS: BP 135/70
--- NOTE | 2023-07-19 05:36 | NUR ---
REPORT RECEIVED, A/O VSS, PT RECEIVED BLOOD TODAY SO FEELING MUCH BETTER AND EXPRESSED HE READY TO GO HOME TO BE WITH FAMILY, PT HAS CARE GIVERS AT HOME SO WOULD LIKE TO LEAVE. REPOSITIONING IS A CHALLENGE BECASE PT NEEDS TO BE FORCED AND HOLDS ON TO BEDSIDE WHEN TURNING MAKING IT VERY DIFFICULT AND POTENTIALLY BEING A SCORCE OF INJURY TO STAFF. I REPOSITIONED MUCH I COULD AND MUCH PT WOULD TOLORATE. QUIGLEY DRAINING AND IV INTACT, PT IN GOOD SPIRITS TODAY AND MAKING MANY JOKES. CALLS APPROPRIATLY.
[2023-07-19 05:54] LABS: Hematocrit 24.3 % (37.0-53.0); Hemoglobin 7.9 g/dL (13.5-17.5)
[2023-07-19 06:25] LABS: Albumin, Blood 1.7 g/dL (3.4-5.0); Anion Gap 8 mmol/L (6-16); Blood Urea Nitrogen 74 mg/dL (8-24); Bun/Creatinine Ratio 21.5 (12.0-20.0); CO2, Blood 24 mmol/L (21-32); Calcium, Blood 7.5 mg/dL (8.5-10.1); Chloride, Blood 105 mmol/L (98-108); Creatinine, Blood 3.44 mg/dL (0.60-1.20); Glomerular Filtration Rate 19 (60-); Glucose, Blood 136 mg/dL (70-99); Magnesium, Blood 1.6 mg/dL (1.6-2.4); Phosphorus, Blood 4.6 mg/dL (2.5-4.9); Potassium, Blood 3.4 mmol/L (3.5-5.5); Sodium, Blood 137 mmol/L (136-145)
[2023-07-19 07:19] VITALS: BP 118/67
--- NOTE | 2023-07-19 16:09 | NUR ---
WOUND CARE ABD/CHEST WOUND CLEANSED WITH NS. NICKEL THICK MUPIROCIN APLLIED. PLEASE REAPPLY TID.
[2023-07-19 16:24] VITALS: BP 110/59
--- NOTE | 2023-07-19 19:26 | NUR ---
SHIFT SUMMARY: PT A&O X4. HAS BEEN COOPERATIVE WITH MOST CARE THIS SHIFT. PT ALLOWED STAFF TO CHANGE WOUND DRESSINGS. WOUND RN ARRIVED THIS AFTERNOON TO ASSESS, CLEANSE, AND CHANGE WOUNDS. NO ACUTE CHANGES WITH PT THIS SHIFT. BICARB INFUSING @ 75/HR. QUIGLEY PATENT DRAINING YELLOW URINE TO GRAVITY. PATIENT SUCTIONING SELF. HARDEN/STAPLES SPUTUM. CALL LIGHT IN REACH. BED IN LOWEST POSITION.
[2023-07-19 20:12] VITALS: BP 145/82
[2023-07-20 02:54] VITALS: BP 102/61
[2023-07-20 05:12] LABS: Hematocrit 25.1 % (37.0-53.0); Hemoglobin 7.9 g/dL (13.5-17.5)
[2023-07-20 05:53] LABS: Albumin, Blood 1.7 g/dL (3.4-5.0); Anion Gap 11 mmol/L (6-16); Blood Urea Nitrogen 66 mg/dL (8-24); Bun/Creatinine Ratio 19.6 (12.0-20.0); CO2, Blood 23 mmol/L (21-32); Calcium, Blood 7.2 mg/dL (8.5-10.1); Chloride, Blood 104 mmol/L (98-108); Creatinine, Blood 3.36 mg/dL (0.60-1.20); Glomerular Filtration Rate 20 (60-); Glucose, Blood 125 mg/dL (70-99); Magnesium, Blood 1.6 mg/dL (1.6-2.4); Phosphorus, Blood 4.2 mg/dL (2.5-4.9); Potassium, Blood 3.5 mmol/L (3.5-5.5); Sodium, Blood 138 mmol/L (136-145)
--- NOTE | 2023-07-20 05:54 | NUR ---
PT A&O, REFUSES SOME CARE. REFUSED POSITIONING AND BREIF CHANGES. PT HAS CHRONIC QUIGLEY IN PLACE. COMPLAINED OF NERVE PAIN--TREATED PER EMAR. STRICT I&O MAINTAINED. SODIUM BICARD @ 75 ML/HR INFUISING. PT SUCTIONS SELF. LARGE AMOUNTS OF THICK SPUTUM. PT HAS CHRONIC QUIGLEY DRAINING TO GRAVITY. BED KEPT IN LOWEST POSITION WITH CALL LIGHT WITHIN REACH. WILL CONTINUE TO MONITOR.
[2023-07-20 07:31] VITALS: BP 134/70
[2023-07-20 11:36] LABS: Influenza A, PCR NEGATIVE (NEGATIVE); Influenza B, PCR NEGATIVE (NEGATIVE); Resp Syncytial Virus, PCR NEGATIVE (NEGATIVE)
[2023-07-20 11:41] LABS: SARS-Cov-2 (COVID-19) PCR, MMC POSITIVE (NEGATIVE)
[2023-07-20] MEDS ORDERED: CUBICIN RF500 M1 IV (15:05)
[2023-07-20] MEDS ORDERED: ARANESP40 MCG/0.1 SC (15:06)
[2023-07-20] MEDS ORDERED: HUMALOG KW100 UNIT/1 SC (15:09)
[2023-07-20] MEDS ORDERED: TRAM50 PO (15:10)
[2023-07-20] MEDS ORDERED: VISBIOME 112.51 EACH PO (15:11)
[2023-07-20] MEDS ORDERED: VITAMIN D31000 UNI1 PO (15:12)
--- NOTE | 2023-07-20 17:52 | NUR ---
DISCHARGE: PT D/C @1715 VIA GURNEY WITH TRANSPORT TO [facility]. REPORT GIVEN TO NURSE @ [facility] AT 1615. WOUNDS ON R. CHEST AND MID ABD CHANGED TWICE THIS SHIFT. WOUND ORDERS REPORTED TO NURSE @ [facility]. FAMILY IN ROOM THROUGHOUT DAY. HARD SCRIPT FOR TRAMADOL SENT WITH PT.
== END 2023-07-20 17:16 | DRG 871 ==
LOC: ER 11:17 → MEDS 15:23 → PCU 15:23 → MEDS 07-16 13:00
PROVIDERS: Internal Medicine; Internal Medicine Nephrology; Pharmacist; Student in an Organized Health Care Education/Training Program; ADMIT Student in an Organized Health Care Education/Training Program
PROC: 30233N1 Transfusion of Nonautologous Red Blood Cells into Peripheral Vein, Percutaneous Approach (ICD-10-PCS; principal; 2023-07-16)
PROC: 3E03329 Introduction of Other Anti-infective into Peripheral Vein, Percutaneous Approach (ICD-10-PCS; 2023-07-16)
DX: A41.02 Sepsis due to Methicillin resistant Staphylococcus aureus (principal); J18.9 Pneumonia, unspecified organism; E87.1 Hypo-osmolality and hyponatremia; N18.4 Chronic kidney disease, stage 4 (severe); N39.0 Urinary tract infection, site not specified; L02.211 Cutaneous abscess of abdominal wall; N25.81 Secondary hyperparathyroidism of renal origin; N17.9 Acute kidney failure, unspecified; E87.20 Acidosis, unspecified; E78.5 Hyperlipidemia, unspecified; E03.9 Hypothyroidism, unspecified; F32.A Depression, unspecified; F15.11 Other stimulant abuse, in remission; Z66 Do not resuscitate; F12.11 Cannabis abuse, in remission; I12.9 Hypertensive chronic kidney disease with stage 1 through stage 4 chronic kidney disease, or unspecified chronic kidney disease; E11.22 Type 2 diabetes mellitus with diabetic chronic kidney disease; D63.1 Anemia in chronic kidney disease; E86.9 Volume depletion, unspecified; Z86.74 Personal history of sudden cardiac arrest; Z11.52 Encounter for screening for COVID-19; Z79.4 Long term (current) use of insulin; Z88.0 Allergy status to penicillin; Z88.8 Allergy status to other drugs, medicaments and biological substances; Z79.899 Other long term (current) drug therapy; Z98.890 Other specified postprocedural states; Z90.49 Acquired absence of other specified parts of digestive tract; Z87.891 Personal history of nicotine dependence
CPT/HCPCS: 0241U; 10060; 36415; 36430; 71045; 76770; 80053; 80069; 80202; 81001; 82947; 83605; 83735; 84145; 84443; 85014; 85018; 85025; 85027; 86850; 86900; 86901; 86923; 87040; 87070; 87075; 87077; 87086; 87147; 87186; 87205; 87449; 93005; 93010; 94640; 94760; 94762; 96365-59; 96366-59; 96367-59; 97110; 97162; 99285-25; A9270; J0696; J0878; J0881; J1644; J1815; J3370; J7030; J7050; P9016

== ENCOUNTER 2023-08-24 18:10 | Inpatient (IN) | payer OTHER ==
[~2023-08-24] VITALS: Ht 185.4 cm; Wt 94.9 kg
[~2023-08-24 18:10] MED LIST changes: +ARANESP40 MCG/0.1 SC; +CUBICIN RF500 M1 IV; +VITAMIN D31000 UNI1 PO
[2023-08-24 19:33] LABS: BASOPHILS ABSOLUTE AUTO 0.07 K/mm3 (0.00-0.23); BASOPHILS PERCENT AUTO 1 % (0-2); EOSINOPHILS ABSOLUTE AUTO 0.06 K/mm3 (0.00-0.68); EOSINOPHILS PERCENT AUTO 0 % (0-6); Hematocrit 31.9 % (37.0-53.0); Hemoglobin 10.1 g/dL (13.5-17.5); IMMATURE GRAN ABSOLUTE AUTO 0.05 K/mm3 (0.00-0.10); IMMATURE GRAN PERCENT AUTO 0 % (0-1); LYMPHOCYTES ABSOLUTE AUTO 0.73 K/mm3 (0.84-5.20); LYMPHOCYTES PERCENT AUTO 5 % (21-46); MONOCYTES ABSOLUTE AUTO 0.65 K/mm3 (0.16-1.47); MONOCYTES PERCENT AUTO 4 % (4-13); Mean Corpuscular HGB 25.3 pg (26.0-34.0); Mean Corpuscular HGB Conc 31.7 g/dL (31.5-36.5); Mean Corpuscular Volume 80 fL (80-100); Mean Platelet Volume 9.9 fL (9.1-12.4); NEUTROPHILS ABSOLUTE AUTO 13.39 K/mm3 (1.96-9.15); NEUTROPHILS PERCENT AUTO 90 % (41-73); Platelet Count 276 K/mm3 (150-400); RDW Standard Deviation 49.6 fL (35.1-46.3); White Blood Cell Count 14.95 K/mm3 (4.00-11.30)
[2023-08-24 19:46] LABS: Albumin, Blood 2.2 g/dL (3.4-5.0); Albumin/Globulin Ratio 0.4 (0.8-1.8); Bilirubin, Total 0.3 mg/dL (0.1-1.0); Bun/Creatinine Ratio 18.5 (12.0-20.0); Calcium, Blood 7.8 mg/dL (8.5-10.1); Creatinine, Blood 4.1 mg/dL (0.60-1.20); Globulin, Blood 5.4 g/dL (2.2-4.0); Potassium, Blood 3.7 mmol/L (3.5-5.5); Total Protein, Blood 7.6 g/dL (6.4-8.2)
[2023-08-24 20:46] LABS: Source, Urine Clean Catch
[2023-08-24 20:49] LABS: Appearance, Urine Turbid (Clear); Bilirubin, Urine Neg (Neg); Blood, Urine 3+ (Neg); Color, Urine Yellow (P-Yellow); Glucose Qualitative, Urine Neg (Neg); Ketones, Urine 2+ (Neg); Leukocyte Esterase, Urine 3+ (Neg); Nitrite, Urine Neg (Neg); Protein, Urine 4+ (Neg); Urobilinogen, Urine NORM (Normal)
[2023-08-24 21:05] LABS: Bacteria Many /hpf; Granular Casts 0-2 /lpf (0); Red Blood Cells, Urine 0-2 /hpf (0-2); Squamous Epithelial Cells Few /hpf (Few); White Blood Cells, Urine TNTC /hpf (0-5); Yeast/Fungi Urine Mod /hpf
[2023-08-25 06:50] LABS: BASOPHILS ABSOLUTE AUTO 0.03 K/mm3 (0.00-0.23); BASOPHILS PERCENT AUTO 0 % (0-2); EOSINOPHILS PERCENT AUTO 0 % (0-6); Hematocrit 30.7 % (37.0-53.0); Hemoglobin 9.8 g/dL (13.5-17.5); IMMATURE GRAN ABSOLUTE AUTO 0.06 K/mm3 (0.00-0.10); IMMATURE GRAN PERCENT AUTO 0 % (0-1); LYMPHOCYTES ABSOLUTE AUTO 0.75 K/mm3 (0.84-5.20); LYMPHOCYTES PERCENT AUTO 5 % (21-46); MONOCYTES ABSOLUTE AUTO 0.45 K/mm3 (0.16-1.47); MONOCYTES PERCENT AUTO 3 % (4-13); Mean Corpuscular HGB 25.2 pg (26.0-34.0); Mean Corpuscular HGB Conc 31.9 g/dL (31.5-36.5); Mean Corpuscular Volume 79 fL (80-100); Mean Platelet Volume 9.5 fL (9.1-12.4); NEUTROPHILS ABSOLUTE AUTO 12.49 K/mm3 (1.96-9.15); NEUTROPHILS PERCENT AUTO 91 % (41-73); Platelet Count 289 K/mm3 (150-400); RDW Standard Deviation 48.9 fL (35.1-46.3); Red Blood Cell Count 3.89 M/mm3 (4.30-5.90); White Blood Cell Count 13.78 K/mm3 (4.00-11.30)
[2023-08-25 07:28] LABS: Albumin, Blood 2.2 g/dL (3.4-5.0); Albumin/Globulin Ratio 0.4 (0.8-1.8); Bun/Creatinine Ratio 20.8 (12.0-20.0); Calcium, Blood 7.6 mg/dL (8.5-10.1); Creatinine, Blood 3.7 mg/dL (0.60-1.20); Globulin, Blood 4.9 g/dL (2.2-4.0); Potassium, Blood 3.7 mmol/L (3.5-5.5); Total Protein, Blood 7.1 g/dL (6.4-8.2)
[2023-08-25 07:49] LABS: Bilirubin, Total 0.3 mg/dL (0.1-1.0)
[2023-08-25 09:57] VITALS: BP 151/68
[2023-08-25 10:36] LABS: Source, Urine Foley catheter
[2023-08-25 11:07] LABS: Appearance, Urine Turbid (Clear); Bilirubin, Urine Neg (Neg); Blood, Urine 4+ (Neg); Glucose Qualitative, Urine 2+ (Neg); Ketones, Urine 1+ (Neg); Leukocyte Esterase, Urine 3+ (Neg); Nitrite, Urine Pos (Neg); Protein, Urine 4+ (Neg); Urobilinogen, Urine NORM (Normal)
[2023-08-25] MEDS ORDERED: MIRALAX17 GM PO (11:13)
[2023-08-25 11:14] LABS: Hematocrit 27.5 % (37.0-53.0); Mean Corpuscular HGB 25.4 pg (26.0-34.0); Mean Corpuscular HGB Conc 32.7 g/dL (31.5-36.5); Mean Corpuscular Volume 78 fL (80-100); Mean Platelet Volume 9.6 fL (9.1-12.4); Platelet Count 268 K/mm3 (150-400); RDW Coefficient Variation 16.8 % (11.7-14.2); RDW Standard Deviation 48.1 fL (35.1-46.3); Red Blood Cell Count 3.55 M/mm3 (4.30-5.90); White Blood Cell Count 12.26 K/mm3 (4.00-11.30)
[2023-08-25] MEDS ORDERED: LEVSOD100 PO (11:14)
[2023-08-25] MEDS ORDERED: METO50ER PO (11:15)
[2023-08-25] MEDS ORDERED: SODBIC650 PO (11:16)
[2023-08-25] MEDS ORDERED: VELTASSA PO (11:19)
[2023-08-25 11:34] LABS: Color, Urine Yellow (P-Yellow)
[2023-08-25 11:38] VITALS: BP 150/62
[2023-08-25 11:47] LABS: White Blood Cells, Urine TNTC /hpf (0-5); Yeast/Fungi Urine Many /hpf
[2023-08-25 11:48] LABS: Bacteria Many /hpf; Squamous Epithelial Cells Not Seen /hpf (Few)
--- NOTE | 2023-08-25 13:08 | NUR ---
ADMIT TO PCU AROUND 1000 AM THIS MORNING. PATIENT ALERT AND ORIENTED X3-4. ABLE TO TELL ME NAME, , WHERE HE IS AND MEDICAL HISTORY. PLEASENT AND COOPERATIVE WITH CARES. MUÑIZ. CHRONIC NEUROPATHY TO HANDS AND FEET. WHEELCHAIR BOUND AT BASELINE. USES LIFT OR SLIDE BOARD TO TRANSFER. PATIENT STATES HE HAS NOT WALKED IN 5 YEARS. BILATERL LOWER EXTREMITIES FRAIL WITH LIMITED RANGE OF MOTION. PATIENT OVERALL WEAK, UNABLE TO KEEP LEGS LIFTED FOR SKIN ASSESSMENT, NEEDING ASSISTANCE. TELE SHOWING SR WITH HR 70-80'S. SBP 150'S. DENIES CHEST PAIN/PRESSURE/PALPITATIONS. NO EDEMA NOTED. SCD'S IN PLACE. PATIENT STATES HE HAS BEEN HAVING COFFEE GROUND EMESIS AT [facility] AND ONCE IN EMERGENCY DEPARTMENT. DR. GERONIMO CALLED AND UPDATED. SC HEPARIN DISCONTINUED AND SCD'S IN PLACE. IV FLUIDS INFUSING PER DR. BRANDON. ON ROOM AIR SATING ABOVE 95%. PATIENT DENIES USING 02/CPAP/BIPAP AT BASELINE. EVEN AND UNLABORED RESPIRATIONS. DENIES SOB. OCCASIONAL COUGH WITH SCANT CLEAR SPUTUM. BOWEL TONES PRESENT. ATE A FEW BITES OF LUNCH WITHOUT N/V. ACHS BLOOD SUGARS. PATIENT DOES NOT HAVE TEETH. DENIES HAVING ANY DENTURES. NO SWALLOWING ISSUES NOTED. CHRONIC QUIGLEY CATH, CHANGED UPON ADMIT TO PCU. NEW URINE SAMPLE SENT PER HOSPITAL POLICY. URINE YELLOW WITH SEDIMENT. LEFT TESTICLE SLIGHTLY SWOLLEN. PATIENT DENIES PAIN IN TESTICLE. COMPLAINS OF SCATTERED PAIN DUE TO NEUROPATHY AND ARTHRITIS. MEDICATED PER EMAR. HOME MED REC COMPLETED FROM [facility] MED LIST. MD GERONIMO UPDATED ON COMPLETED MED REC. POLST FORM SENT WITH PATIENT FROM [facility], LISTED DNR. PATIENT CONFIRMED DNR CODE STATUS. MD GERONIMO CALLED AND THIS RN PLACED ORDER FOR DNR. DNR WRIST BAND ON LEFT WRIST. SKIN OVERALL FRAGILE WITH SCATTERED ABRASIONS/WOUNDS. SEE CHART FOR PICTURES OF WOUNDS. PRESSURE ULCER PRESENT TO LEFT HEEL AND WOUND TO RIGHT CHEST WALL. SCATTERED SCABS, PT REPORTS FROM SCRATCHING. Q2 TURNS AND FLOATING HEELS. ORIENTED TO ROOM/UNIT. PATIENT DENIES THIS RN TO CALL AND UPDATE FAMILY AT THIS TIME. CALL LIGHT IN REACH. PATIENT SLEEPING AT THIS TIME.
[2023-08-25 15:22] VITALS: BP 139/60
[2023-08-25 17:27] LABS: Hematocrit 25.8 % (37.0-53.0); Hemoglobin 8.2 g/dL (13.5-17.5); Mean Corpuscular HGB 24.9 pg (26.0-34.0); Mean Corpuscular HGB Conc 31.8 g/dL (31.5-36.5); Mean Corpuscular Volume 78 fL (80-100); Mean Platelet Volume 9.5 fL (9.1-12.4); Platelet Count 244 K/mm3 (150-400); RDW Coefficient Variation 16.7 % (11.7-14.2); RDW Standard Deviation 47.9 fL (35.1-46.3); Red Blood Cell Count 3.29 M/mm3 (4.30-5.90)
--- NOTE | 2023-08-25 17:30 | NUR ---
SHIFT SUMMARY: NO ACUTE CHANGES SEE PREVIOUS NOTE. PATIENT SLEEPING MOST OF SHIFT, WAKES TO VOICE AND TOUCH. NO CHANGES TO TELE, REMAINS SR WITH HR 70'S. SBP 130'S THIS EVENING. SATING ABOVE 95% ON ROOM AIR. Q2 TURNING AND NEEDED. PATIENT EATING DINNER AT THIS TIME. DENIES NAUSEA. NO EPISODES OF VOMIT. QUIGLEY CATH REMAINS IN PLACE DRAINING YELLOW URINE WITH SEDIMENT. INFREQENT COUGH/CLEARING THROAT. NO BOWEL MOVEMENT THIS SHIFT, SAMPLE NEEDED PER ORDERS. SCD'S IN PLACE. SITTING UP IN BED AT THIS TIME EATING DINNER. DENIES NEEDS AT THIS TIME. CALL LIGHT IN REACH.
[2023-08-25 21:18] VITALS: BP 158/73
[2023-08-25 23:25] LABS: Hematocrit 24.7 % (37.0-53.0); Mean Corpuscular HGB 25.4 pg (26.0-34.0); Mean Corpuscular HGB Conc 32.4 g/dL (31.5-36.5); Mean Corpuscular Volume 78 fL (80-100); Mean Platelet Volume 9.8 fL (9.1-12.4); Platelet Count 236 K/mm3 (150-400); RDW Coefficient Variation 16.7 % (11.7-14.2); RDW Standard Deviation 47.8 fL (35.1-46.3); Red Blood Cell Count 3.15 M/mm3 (4.30-5.90); White Blood Cell Count 9.25 K/mm3 (4.00-11.30)
[2023-08-25 23:43] VITALS: BP 153/80
[2023-08-26 04:04] LABS: Hematocrit 25.1 % (37.0-53.0)
[2023-08-26 04:21] LABS: Albumin, Blood 1.9 g/dL (3.4-5.0); Anion Gap 9 mmol/L (6-16); Blood Urea Nitrogen 70 mg/dL (8-24); Bun/Creatinine Ratio 20.1 (12.0-20.0); CO2, Blood 21 mmol/L (21-32); Calcium, Blood 7.1 mg/dL (8.5-10.1); Chloride, Blood 112 mmol/L (98-108); Creatinine, Blood 3.49 mg/dL (0.60-1.20); Glomerular Filtration Rate 19 (60-); Glucose, Blood 200 mg/dL (70-99); Magnesium, Blood 1.3 mg/dL (1.6-2.4); Phosphorus, Blood 3.6 mg/dL (2.5-4.9); Potassium, Blood 3.2 mmol/L (3.5-5.5); Sodium, Blood 142 mmol/L (136-145)
[2023-08-26 04:40] VITALS: BP 140/56
--- NOTE | 2023-08-26 06:00 | NUR ---
SHIFT SUMMARY A/Ox3-4 AND MOSTLY COOPERATIVE WITH CARE. ANSWERS QUESTIONS APPROPRIATELY AND ABLE TO MAKE HIS NEEDS KNOWN. NO ACUTE EVENTS OVER NIGHT FOR PT WAS ABLE TO SLEEP T/O MOST OF THE SHIFT. CARDIAC, REMAINS IN SR 60-80'S WITH NO REPORTS OF CP OR PRESSURE T/O THE NIGHT. SBP HAS BEEN STABLE RANGING 130-150'S. RESPIRATORY, MAINTAINS SPO2 >94% ON RA WITH NO REPORTS OF SOB OR DYSPNEA WHILE AT REST. GI/, QUIGLEY CATH PATENT DRAINING YELLOW URINE TO GRAVITY. SOME SEDIMENT STILL NOTED. NO BM FOR THIS THIFT. BICARB gtt INFUSING T/O THE NIGHT ORDERED VIA EMAR. PAIN HAS BEEN WELL MANAGED WITH PRN PAIN MEDICATIONS. ASSESSED PT FOR RISKS OF ANY IGNITION SOURCES WELL BEHAVIORS FOR INCREASED RISKS OF FIRE DANGER. PT EDUCATED ON COMMON SOURCES OF IGNITION WELL NEED TO KEEP A SAFE ENVIRONMENT. PT VOICED UNDERSTANDING. NO NEW ORDERS AT THIS TIME, WILL REPORT TO ONCOMING RN. AUGUSTUS KING OF THIS NOTE
[2023-08-26 07:35] VITALS: BP 169/79
--- NOTE | 2023-08-26 08:15 | NUR ---
AM ASSESSMENT: Pt resting in bed. States that he is having some back, hip pain that is chronic. Requesting his gabapentin. Will medicate per orders. LS diminished in bases. HR reg. BT hyperactive. Pulses palp. Goodson in place and draining clear yellow urine to gravity. Heel mepalex in place and heels floated. When dressing pulled back to check heels pt yelled at this RN and states "The wounds get worse everytime you pull the dressing back!" Educated patient on need for skin assessment every shift, educated that pulling back heel mepilex does not increase wounds. Heels red, picutures in chart. Buttock with redness. Coccyx mepalex dressing changed. Pt requesting apple juice, informed pt I needed to check the orders and blood glucose. Pt states "It doesn't matter what the chart says, what matters is what I want, I'm paying the bill." Educated Pt on need to follow physician orders and compliance. CBG elevated and will treat with insulin per orders. Pt was given Apple juice per request. Pt call light in reach. WIll continue to monitor.
[2023-08-26 15:16] VITALS: BP 156/72
--- NOTE | 2023-08-26 17:48 | NUR ---
SHIFT SUMMARY: Pt sitting up in bed eating dinner. VSS throughout shift. Has c/o chronic back pain on and off this shift. Treated per orders. CBG elevated and treated per SS. Electrolytes were replaced per orders this am. No acute changes this shift. Will report to night RN.
[2023-08-26 20:06] VITALS: BP 146/68
[2023-08-26 23:15] VITALS: BP 139/72
[2023-08-27] VITALS (9 sets, daily range): BP systolic 148–185; BP diastolic 66–101
[2023-08-27 04:10] LABS: Hematocrit 26.7 % (37.0-53.0); Hemoglobin 8.2 g/dL (13.5-17.5)
[2023-08-27 04:30] LABS: Anion Gap 7 mmol/L (6-16); Blood Urea Nitrogen 55 mg/dL (8-24); Bun/Creatinine Ratio 18.8 (12.0-20.0); CO2, Blood 23 mmol/L (21-32); Calcium, Blood 7.2 mg/dL (8.5-10.1); Chloride, Blood 114 mmol/L (98-108); Creatinine, Blood 2.93 mg/dL (0.60-1.20); Glomerular Filtration Rate 23 (60-); Glucose, Blood 159 mg/dL (70-99); Magnesium, Blood 1.5 mg/dL (1.6-2.4); Phosphorus, Blood 2.8 mg/dL (2.5-4.9); Potassium, Blood 3.4 mmol/L (3.5-5.5); Sodium, Blood 144 mmol/L (136-145)
--- NOTE | 2023-08-27 07:22 | NUR ---
SHIFT SUMMARY A/Ox3-4 AND COOPERATIVE WITH CARE. ANSWERS QUESTIONS APPROPRIATELY AND ABLE TO MAKE HIS NEEDS KNOWN. NO ACUTE EVENTS OVERNIGHT FOR PT WAS ABLE TO SLEEP T/O MOST OF THE SHIFT. CARDIAC, REMAINS IN SR 60-80'S WITH NO REPORTS OF CP OR PRESSURE T/O THE NIGHT. SBP REMAINS SLIGHTLY ELEVATED RANGING 140-150'S. RESPIRATORY, MAINTAINS SPO2 >94% ON RA. NO REPORTS OF SOB OR DYSPNEA WHILE AT REST. GI/, QUIGLEY CATH REMAINS PATENT DRAINING YELLOW URINE TO GRAVITY. ABD CONTINUES TO BE SLIGHTLY DISTENDED, BUT BS VERY ACTIVE IN ALL QUADRANTS. NO BM THIS SHIFT. PAIN HAS BEEN WELL MANAGED PER EMAR. Q2 HR REPOSITIONING IN PLACE TO KEEP PRESSURE OFF OF BONY PROMINENCES. ASSESSED PT FOR RISKS OF ANY IGNITION SOURCES WELL BEHAVIORS FOR INCREASED RISKS OF FIRE DANGER. PT EDUCATED ON COMMON SOURCES OF IGNITION WELL NEED TO KEEP A SAFE ENVIRONMENT. PT VOICED UNDERSTANDING. NO NEW ORDERS AT THIS TIME, WILL REPORT TO ONCOMING RN. CHRISTINE, AUGUSTUS OF THIS NOTE
--- NOTE | 2023-08-27 18:33 | NUR ---
PATIENT IS ALERT AND ORIENTED AND COOPERATIVE WITH CARE. HE HAS BEEN HYPERTENSIVE THROUGHOUT THE DAY. HIS HOME DOSE OF METOPROLOL SUCCINATE WAS STARTED THIS MORNING WITH NO IMPACT ON HIS BLOOD PRESSURE. NORVASC WAS ORDERED BY DR. GERONIMO THIS AFTERNOON. THIS RN CALLED DR. GREONIMO AFTER ADMINISTERING THE NORVASC AND RECHECKING THE PATIENT'S BP WHICH SHOWED NO CHANGE. DR. GERONIMO ORDERED PRN HYDRALAZINE IV FOR SBP GREATER THAN 180 mm Hg. THE PATIENT'S LATEST BP IS 175/76 mm HG. QUIGLEY IN PLACE AND DRAINING. NS AT 50 ML/HR. WHEELCHAIR BOUND AT BASELINE, PATIENT USES A SLIDE BOARD AT HOME. WILL CONTINUE TO MONITOR
--- NOTE | 2023-08-27 18:42 | NUR ---
SHIFT SUMMARY PT ALERT AND ORIENTED X 4, COOPERATIVE WITH CARE AND ABLE TO MAKE NEEDS KNOWN. PERRLA. PT ON RA AND MAINTAINED 02 SATURATION ABOVE 92% , HE DENIED SOB. PT'S BP WAS ELEVATED AT BEGINNING OF SHIFT, NOTIFIED AND PT MEDICATED PER EMAR. PT DENIED CHEST PAIN/PRESSURE THROUGHOUT SHIFT. CHRONIC QUIGLEY CATHETER IN PLACE AND WAS DRAINING YELLOW URINE WITH GRAVITY. NO BOWEL MOVEMENT THIS SHIFT. MEPILEX IN PLACE ON COCCYX AND HEAL PROTECTORS ON EACH HEAL BOTH CHANGED TODAY. OPEN WOUND ON PT'S R UPPER CHEST, BANDAGE CHANGED TODAY. PT TRANSFERRED TO MEDICAL FLOOR AT APPROXIMATELY 1540 WITH ALL OF HIS BELONGINGS AND CHART FOR MEDICAL FLOOR NURSE. REPORT WAS GIVEN TO MEDICAL FLOOR NURSE. PT STABLE AT TIME OF TRANSFER.
[2023-08-28 03:50] VITALS: BP 172/80
--- NOTE | 2023-08-28 05:53 | NUR ---
SHIFT SUMMARY NOC PT A/O X 4. PLEASANT AND COOPERATIVE WITH CARE. NO ACUTE CHANGES TO REPORT. PT PAINN BEING MANAGED PER EMAR. ON TELE RUNNING SINUS RHYTHM/1DHB/BBB IN 70'S. QUIGLEY IN PLACE PATENT AND DRAINING TO GRAVITY. HS CBG 277 CNI. PT BP ELEVATED THIS AM, BUT PARAMETER FOR HYDRALAZINE IV. NS INFUSING @ 50 ML/HR. PT HAS UNCOLLECTED GUAIAC STOOL SAMPLE. PT IS CURRENTLY RESTING WITH BED IN LOWEST POSITION, AND CALL LIGHT WITHIN REACH.
--- NOTE | 2023-08-28 06:12 | NUR ---
PT REFUSED AM LAB DRAW.
[2023-08-28 08:00] VITALS: BP 161/75
[2023-08-28 09:23] LABS: Hemoglobin 8.7 g/dL (13.5-17.5)
[2023-08-28 10:07] LABS: Albumin, Blood 1.9 g/dL (3.4-5.0); Anion Gap 7 mmol/L (6-16); Blood Urea Nitrogen 45 mg/dL (8-24); Bun/Creatinine Ratio 17.6 (12.0-20.0); CO2, Blood 22 mmol/L (21-32); Calcium, Blood 7.3 mg/dL (8.5-10.1); Chloride, Blood 109 mmol/L (98-108); Creatinine, Blood 2.55 mg/dL (0.60-1.20); Glomerular Filtration Rate 27 (60-); Glucose, Blood 181 mg/dL (70-99); Magnesium, Blood 1.5 mg/dL (1.6-2.4); Phosphorus, Blood 2.8 mg/dL (2.5-4.9); Potassium, Blood 3.8 mmol/L (3.5-5.5); Sodium, Blood 138 mmol/L (136-145)
[2023-08-28] MEDS ORDERED: AMLO5 PO (12:00)
[2023-08-28] MEDS ORDERED: HUMALOG KW100 UNIT/1 SC (12:01)
[2023-08-28] MEDS ORDERED: DOXY100 PO (12:02)
[2023-08-28] MEDS ORDERED: PANT20 PO (12:02)
[2023-08-28] MEDS ORDERED: MAG-OXIDE MAGN200 MG PO (12:02)
[2023-08-28 12:19] LABS: SARS-Cov-2 (COVID-19) PCR, MMC NEGATIVE (NEGATIVE)
--- NOTE | 2023-08-28 13:52 | NUR ---
REPORT CALLED ATTEMPTED TO CALL REPORT TO JENNIFER VILLALOBOS X2, NO ANSWER EACH TIME.
--- NOTE | 2023-08-28 15:33 | NUR ---
DISCHARGE SUMMARY PATIENT DISCHARGED WITH EMS TO TRANSPORT BACK TO [facility]. REPORT WAS ATTEMPTED. DISCHARGE PACKET GIVEN, 2 HARD SCRIPTS SENT IN PACKET. IV DISCONTINUED PRIOR WITH NO COMPLICATIONS.
== END 2023-08-28 14:04 | DRG 871 ==
LOC: ER 18:10 → PCU 22:43 → ERHOLD 22:43 → PCU 08-25 09:46 → MEDS 08-27 15:47
PROVIDERS: Emergency Medicine; Internal Medicine; Internal Medicine Nephrology; ADMIT Internal Medicine
PROC: 3E03329 Introduction of Other Anti-infective into Peripheral Vein, Percutaneous Approach (ICD-10-PCS; principal; 2023-08-24)
PROC: 0T9B70Z Drainage of Bladder with Drainage Device, Via Natural or Artificial Opening (ICD-10-PCS; 2023-08-24)
DX: A41.50 Gram-negative sepsis, unspecified (principal); G93.41 Metabolic encephalopathy; E87.20 Acidosis, unspecified; N39.0 Urinary tract infection, site not specified; N18.4 Chronic kidney disease, stage 4 (severe); N17.9 Acute kidney failure, unspecified; N25.81 Secondary hyperparathyroidism of renal origin; E86.9 Volume depletion, unspecified; E11.22 Type 2 diabetes mellitus with diabetic chronic kidney disease; F32.A Depression, unspecified; E03.9 Hypothyroidism, unspecified; E88.09 Other disorders of plasma-protein metabolism, not elsewhere classified; I87.8 Other specified disorders of veins; E11.649 Type 2 diabetes mellitus with hypoglycemia without coma; E78.5 Hyperlipidemia, unspecified; K59.00 Constipation, unspecified; M16.0 Bilateral primary osteoarthritis of hip; K21.9 Gastro-esophageal reflux disease without esophagitis; D63.1 Anemia in chronic kidney disease; N50.89 Other specified disorders of the male genital organs; F17.210 Nicotine dependence, cigarettes, uncomplicated; I12.9 Hypertensive chronic kidney disease with stage 1 through stage 4 chronic kidney disease, or unspecified chronic kidney disease; E83.42 Hypomagnesemia; E87.6 Hypokalemia; Z90.49 Acquired absence of other specified parts of digestive tract; Z98.890 Other specified postprocedural states; Z79.899 Other long term (current) drug therapy; Z88.0 Allergy status to penicillin; Z88.8 Allergy status to other drugs, medicaments and biological substances; Z79.4 Long term (current) use of insulin; Z86.74 Personal history of sudden cardiac arrest
CPT/HCPCS: 36415; 71045; 74176; 80053; 80069; 81001; 82947; 83605; 83690; 83735; 83880; 84484; 85014; 85018; 85025; 85027; 87040; 87077; 87086; 87186; 96361; 96365; 96372-59; 96375; 99285-25; A9270; C1751; C9113; J0696; J0881; J1644; J2405; J3010; J3475; J3480; J7030; J7120; U0002

== ENCOUNTER → 2023-12-08 | Outpatient (CLI) | payer MEDICARE, OTHER | END | disposition home or self-care (01) | LOC: LAB 11:30 → LAB SHORT 11:30 | DX: N18.30 Chronic kidney disease, stage 3 unspecified (principal); D63.1 Anemia in chronic kidney disease ==

== ENCOUNTER 2024-01-26 11:50 | Inpatient (IN) | payer OTHER, MEDICARE ==
[~2024-01-26] VITALS: Ht 182.9 cm; Wt 98.2 kg
[~2024-01-26 11:50] MED LIST changes: +AMLO5 PO; +DOXY100 PO; +LEVSOD100 PO; +MAG-OXIDE MAGN200 MG PO; +METO50ER PO; +MIRALAX17 GM PO; +VELTASSA PO
[2024-01-26] MEDS ORDERED: FentaNYL Citrate 50 MCG/ML 2 ML Injection IV ONE (13:20)
[2024-01-26] MEDS ORDERED: Lidocaine 4% 1 Patch TOP ONE (13:20)
[2024-01-26 14:04] LABS: Albumin, Blood 2.5 g/dL (3.4-5.0); Albumin/Globulin Ratio 0.7 (0.8-1.8); Bilirubin, Total 0.3 mg/dL (0.1-1.0); Bun/Creatinine Ratio 22.2 (12.0-20.0); Calcium, Blood 7.3 mg/dL (8.5-10.1); Creatinine, Blood 3.29 mg/dL (0.60-1.20); Globulin, Blood 3.4 g/dL (2.2-4.0); Potassium, Blood 5.1 mmol/L (3.5-5.5); Total Protein, Blood 5.9 g/dL (6.4-8.2)
[2024-01-26 14:10] LABS: BASOPHILS ABSOLUTE AUTO 0.05 K/mm3 (0.00-0.23); BASOPHILS PERCENT AUTO 1 % (0-2); EOSINOPHILS ABSOLUTE AUTO 0.06 K/mm3 (0.00-0.68); EOSINOPHILS PERCENT AUTO 1 % (0-6); IMMATURE GRAN ABSOLUTE AUTO 0.08 K/mm3 (0.00-0.10); IMMATURE GRAN PERCENT AUTO 1 % (0-1); LYMPHOCYTES ABSOLUTE AUTO 1.08 K/mm3 (0.84-5.20); LYMPHOCYTES PERCENT AUTO 14 % (21-46); MONOCYTES ABSOLUTE AUTO 0.42 K/mm3 (0.16-1.47); MONOCYTES PERCENT AUTO 5 % (4-13); Mean Corpuscular HGB 29.2 pg (26.0-34.0); Mean Corpuscular HGB Conc 32.3 g/dL (31.5-36.5); Mean Corpuscular Volume 91 fL (80-100); Mean Platelet Volume 9.7 fL (9.1-12.4); NEUTROPHILS ABSOLUTE AUTO 6.15 K/mm3 (1.96-9.15); NEUTROPHILS PERCENT AUTO 78 % (41-73); Platelet Count 150 K/mm3 (150-400); RDW Coefficient Variation 22.1 % (11.7-14.2); RDW Standard Deviation 73.7 fL (35.1-46.3); Red Blood Cell Count 3.42 M/mm3 (4.30-5.90); White Blood Cell Count 7.84 K/mm3 (4.00-11.30)
[2024-01-26] MEDS ORDERED: NS 1,000 ML IV SCH ×3 (15:45→21:35)
[2024-01-26 16:27] LABS: Source, Urine Foley catheter
[2024-01-26 16:41] LABS: Appearance, Urine Cloudy (Clear); Bilirubin, Urine Neg (Neg); Blood, Urine 3+ (Neg); Glucose Qualitative, Urine Neg (Neg); Ketones, Urine Neg (Neg); Leukocyte Esterase, Urine 3+ (Neg); Nitrite, Urine Pos (Neg); Protein, Urine 3+ (Neg); Urobilinogen, Urine NORM (Normal)
[2024-01-26 16:52] LABS: Color, Urine Pale Yellow (P-Yellow)
[2024-01-26 16:53] LABS: Bacteria Many /hpf; Squamous Epithelial Cells Few /hpf (Few); White Blood Cells, Urine TNTC /hpf (0-5); Yeast/Fungi Urine Few /hpf
[2024-01-26 16:54] LABS: Hyaline Casts 0-2 /lpf (0-2)
[2024-01-26] MEDS ORDERED: CefTRIAXone Sodium 1,000 MG in NS 50 ML IV ONE (17:05)
[2024-01-26 17:15] LABS: Base Excess Venous -23.5 mmol/L; Bicarbonate Venous 8.7 mmol/L (24.0-30.0); PCO2 Venous 26.8 mmHg (38-42); pH Blood Venous 7.04 (7.34-7.37)
[2024-01-26] MEDS ORDERED: Vancomycin HCL 1,500 MG in NS 265 ML IV ONE (17:25)
[2024-01-26] MEDS ORDERED: Lidocaine 2% Viscous Soln 15 ML UDC PO ONE (18:05)
[2024-01-26] MEDS ORDERED: Atropine/Scopalam/Hyoscam/PB 5 ML UDC PO ONE (18:05)
[2024-01-26] MEDS ORDERED: Mag Hydrox/AL Hydrox/Simeth 30 ML UDC PO ONE (18:05)
[2024-01-26 18:39] LABS: Albumin, Blood 2.4 g/dL (3.4-5.0); Albumin/Globulin Ratio 0.7 (0.8-1.8); Bilirubin, Total 0.2 mg/dL (0.1-1.0); Bun/Creatinine Ratio 21.2 (12.0-20.0); Calcium, Blood 7.3 mg/dL (8.5-10.1); Creatinine, Blood 3.59 mg/dL (0.60-1.20); Globulin, Blood 3.4 g/dL (2.2-4.0); Potassium, Blood 4.3 mmol/L (3.5-5.5); Total Protein, Blood 5.8 g/dL (6.4-8.2)
[2024-01-26] MEDS ORDERED: OxyCODONE HCL 5 MG TAB PO ONE (20:55)
[2024-01-26 21:19] LABS: PCO2 Arterial 22.7 mmHg (35-45); PO2 Arterial 110 mmHg (80-100)
[2024-01-26 21:20] LABS: pH Blood Arterial 7.09 (7.35-7.45)
[2024-01-26] MEDS ORDERED: TraMADol HCl 50 MG Tab PO PRN (21:20)
[2024-01-26] MEDS ORDERED: Ondansetron HCl 2 MG / ML 2ML Vial IV PRN (21:20)
[2024-01-26] MEDS ORDERED: Gabapentin 100 MG Cap PO PRN (21:20)
[2024-01-26] MEDS ORDERED: Dextrose 50% 50 ML Syringe IV PRN (21:30)
[2024-01-26 21:43] LABS: Acetaminophen, Random 6.1 ug/mL (10.0-30.0); Salicylate 5.2 mg/dL (2.8-20.0)
[2024-01-26] MEDS ORDERED: Albuterol HFA200 ACT/6.7 GM INH INH PRN (21:50)
[2024-01-26 22:00] VITALS: BP 122/56
[2024-01-26] MEDS ORDERED: Insulin Human Lispro 100 Units/ML 3ML Syringe SC SCH (22:00)
[2024-01-26] MEDS ORDERED: Pantoprazole Sodium 40 MG Injection IV SCH (22:00)
[2024-01-26 22:13] LABS: Thyroid Stimulating Hormone 19.9 uIU/mL (0.360-4.800)
[2024-01-26 22:30] VITALS: BP 157/99
[2024-01-26 22:35] LABS: U Amphetamine Screen Not Detected; U Barbituate Screen Not Detected; U Benzodiazapine Screen Not Detected; U Cannabinoids Screen DETECTED; U Cocaine Screen Not Detected; U Methadone Screen Not Detected; U Methamphetamine Screen Not Detected; U Opiates Screen Not Detected; U Phencyclidine Screen Not Detected
[2024-01-26 22:36] LABS: U Buprenorphine Screen Not Detected; U Oxycodone Screen Not Detected
[2024-01-26] MEDS ORDERED: Sodium Bicarb 8.4% Inj 100 MEQ in Sodium Chloride 0.45% 1,000 ML IV SCH (22:40)
[2024-01-26 22:45] VITALS: BP 128/61
[2024-01-26 22:45] LABS: Phosphorus, Blood 8.9 mg/dL (2.5-4.9)
[2024-01-26 23:00] VITALS: BP 118/47
[2024-01-26] MEDS ORDERED: Sodium Bicarb 8.4% 1 MEQ/ML 50 ML Vial IV ONE (23:00)
[2024-01-26 23:03] LABS: Bun/Creatinine Ratio 20.8 (12.0-20.0); Calcium, Blood 7.5 mg/dL (8.5-10.1); Creatinine, Blood 3.51 mg/dL (0.60-1.20); Potassium, Blood 4.2 mmol/L (3.5-5.5)
[2024-01-26 23:15] VITALS: BP 120/57
[2024-01-26 23:45] VITALS: BP 113/57
[2024-01-27] VITALS (31 sets, daily range): BP systolic 94–151; BP diastolic 43–95
--- NOTE | 2024-01-27 00:48 | NUR ---
ARRIVAL TO ICU PT A/O X 4. DID STATE IT WAS OCTOBER VS DECEMBER. FOLLOWS DIRECTIONS, NEEDS ENCOURGEMENT TO ALLOW MOST CARE. VSS. SR AT 70-80'S. PT HAS CHRONIC QUIGLEY, REFUSING TO ALLOW UQIGLEY CHANGE PER HOSPITAL POLICY. CBG 105. BICARB GTT STARTED. CRITICAL PHOS CALLED TO HOSP. NO NEW ORDERS. PT C/O OF PAIN IN LEFT HEEL AND BACK, MEDICATED PER EMAR. PT W/C BOUND AT BASELINE, W/C AND SLIDEBOARD IN ROOM WIHT PT.
--- NOTE | 2024-01-27 01:41 | NUR ---
PERSON TO NOTIFY PT REQUESTING NIECE "ANILA" TO BE DECSION MAKER AND PERSON TO NOTIFY. PHONE NUMBER [phone]
--- NOTE | 2024-01-27 02:26 | NUR ---
UPDATE QUIGLEY AGAIN ASKED PT ABOUT CHANGING QUIGLEY CATH AND EDUCATED PT ON IMPORTANCE OF DOING SO. PT REFUSED. PT DID ALLOW THE TUBING AND BAG TO BE CHANGED. UA SENT AFTER BAG/TUBING CHANGE.
[2024-01-27 04:45] LABS: Base Excess Venous -20.2 mmol/L; Bicarbonate Venous 10.5 mmol/L (24.0-30.0); PCO2 Venous 26.6 mmHg (38-42); pH Blood Venous 7.13 (7.34-7.37)
[2024-01-27 04:50] LABS: Hematocrit 25.7 % (37.0-53.0); Hemoglobin 8.4 g/dL (13.5-17.5); Mean Corpuscular HGB 29.6 pg (26.0-34.0); Mean Corpuscular HGB Conc 32.7 g/dL (31.5-36.5); Mean Corpuscular Volume 91 fL (80-100); Mean Platelet Volume 9.5 fL (9.1-12.4); Platelet Count 115 K/mm3 (150-400); RDW Coefficient Variation 22.1 % (11.7-14.2); RDW Standard Deviation 72.7 fL (35.1-46.3); Red Blood Cell Count 2.84 M/mm3 (4.30-5.90); White Blood Cell Count 5.86 K/mm3 (4.00-11.30)
[2024-01-27 05:16] LABS: Magnesium, Blood 1.9 mg/dL (1.6-2.4)
[2024-01-27 05:32] LABS: Albumin, Blood 2.1 g/dL (3.4-5.0); Albumin/Globulin Ratio 0.8 (0.8-1.8); Bilirubin, Total 0.2 mg/dL (0.1-1.0); Bun/Creatinine Ratio 19.8 (12.0-20.0); Creatinine, Blood 3.48 mg/dL (0.60-1.20); Globulin, Blood 2.8 g/dL (2.2-4.0); Total Protein, Blood 4.9 g/dL (6.4-8.2)
[2024-01-27 05:42] LABS: Phosphorus, Blood 8.7 mg/dL (2.5-4.9)
[2024-01-27] MEDS ORDERED: Sodium Bicarb 8.4% 1 MEQ/ML 50 ML Vial IV ONE (05:50)
[2024-01-27] MEDS ORDERED: Levothyroxine Sodium 0.1 MG Tab PO SCH (06:00)
--- NOTE | 2024-01-27 06:26 | NUR ---
SHIFT SUMMARY NO ACUTE EVENTS T/O NIGHT. BP SOFT AT TIMES. OTHER VSS. PT MORE AGREEABLE TO CARE THIS AM. CALL TO HOSP REGARDING CRITICAL PH, CO2, AND PHOS. ORDERS RECEIVED. ALEKSANDR CONSULTED AND IN TO SEE PT THIS AM. SORAIDA PATENT AND DRAINING TO GRAVITY. WILL REPORT OFF TO ONCOMING RN.
[2024-01-27 08:45] LABS: Albumin, Blood 2.1 g/dL (3.4-5.0); Anion Gap 13 mmol/L (3-11); Blood Urea Nitrogen 69 mg/dL (8-24); Bun/Creatinine Ratio 20.8 (12.0-20.0); CO2, Blood 13 mmol/L (21-32); Chloride, Blood 124 mmol/L (98-108); Creatinine, Blood 3.31 mg/dL (0.60-1.20); Glomerular Filtration Rate 20 (60-); Glucose, Blood 95 mg/dL (70-99); Sodium, Blood 146 mmol/L (136-145)
[2024-01-27] MEDS ORDERED: Lactobacil 2-S.Thermo-Bifido 1 1 Cap PO SCH (09:00)
[2024-01-27] MEDS ORDERED: AmLODIPine Besylate 5 MG Tab PO SCH (09:00)
[2024-01-27] MEDS ORDERED: Metoprolol Succinate 50 MG TABCR PO SCH (09:00)
[2024-01-27] MEDS ORDERED: CefTRIAXone Sodium 1,000 MG in NS 100 ML IV SCH (09:00)
[2024-01-27] MEDS ORDERED: Enoxaparin 30 MG/0.3 ML SYR SC SCH (09:00)
[2024-01-27] MEDS ORDERED: Enoxaparin 40 MG/0.4 ML SYR SC SCH (09:00)
[2024-01-27] MEDS ORDERED: Polyethylene Glycol 3350 17 gm PO SCH (09:00)
[2024-01-27] MEDS ORDERED: Cholecalciferol 1000 Unit Tablet (=25MCG) PO SCH ×2 (09:00)
[2024-01-27 09:07] LABS: Source, Urine Foley catheter
[2024-01-27 09:11] LABS: Appearance, Urine Clear (Clear); Bilirubin, Urine Neg (Neg); Blood, Urine Neg (Neg); Color, Urine Yellow (P-Yellow); Glucose Qualitative, Urine Neg (Neg); Ketones, Urine 1+ (Neg); Leukocyte Esterase, Urine Neg (Neg); Nitrite, Urine Neg (Neg); Protein, Urine Neg (Neg); Urobilinogen, Urine NORM (Normal)
[2024-01-27] MEDS ORDERED: Sodium Bicarb 8.4% Inj 150 MEQ in Dextrose 5% 1,000 ML IV SCH (09:15)
[2024-01-27 11:25] LABS: Bun/Creatinine Ratio 20.1 (12.0-20.0); Calcium, Blood 7.1 mg/dL (8.5-10.1); Creatinine, Blood 3.39 mg/dL (0.60-1.20); Potassium, Blood 3.9 mmol/L (3.5-5.5)
--- NOTE | 2024-01-27 11:32 | NUR ---
Phone call with caregiver. Staff member from [facility] called. She asked that they be given notice as soon as discharge planning starts so they can have a caregiver on standby for Adilson when he gets out of the hospital. Phone number [phone].
[2024-01-27] MEDS ORDERED: Nicotine 21 MG PATCH TOP SCH (14:00)
[2024-01-27] MEDS ORDERED: Darbepoetin Alfa In Albumn Sol 40 MCG/0.4 ML SC SCH (16:00)
[2024-01-27 17:22] LABS: Bun/Creatinine Ratio 18.2 (12.0-20.0); Calcium, Blood 6.8 mg/dL (8.5-10.1); Creatinine, Blood 3.4 mg/dL (0.60-1.20); Potassium, Blood 3.9 mmol/L (3.5-5.5)
--- NOTE | 2024-01-27 18:34 | NUR ---
Shift summary. Pt rested in bed throughout shift. Good urine output. Pt alert and oriented, required minimal help in bed this shift. No acute events this shift, see chart for further details.
--- NOTE | 2024-01-27 20:00 | NUR ---
ASSUMED CARE OF PT AT 1900. REPORT RECEIVED AT BEDSIDE. PT PRESENTS IN BED. SLEEPING. IN NO APPARENT DISTRESS. WILL REIVEW CHART AND PLAN OF CARE FOR THIS PT.
[2024-01-27 20:53] LABS: Vancomycin, Random 12.4 ug/mL
[2024-01-27] MEDS ORDERED: Insulin Human Lispro 100 Units/ML 3ML Syringe SC SCH ×2 (21:00)
[2024-01-27] MEDS ORDERED: Vancomycin HCL 750 MG in NS 100 ML IV SCH (21:07)
--- NOTE | 2024-01-27 23:02 | NUR ---
TRANSFER NOTE THIS RN RECEIVED REPORT VIA PHONE FROM SAMANTHA LOYA IN ICU. PT TRANSFERRED TO PCU 5 AROUND 0. PT SLID USING SLIDE SHEET. PT A&O X4. ABLE TO MAKE NEEDS KNOWN. PT REFUSING MEPILEX FOR COCCYX AND HEELS. PT REPORTS ITCHING T/O BODY. SCABS NOTED T/O, REPORTS THAT HE HAS "BUGS UNDER HIS SKIN". OTHERWISE IS APPROPRIATE. BP STABLE. HRR REGULAR 70-80'S. NO TELE. AFEBRILE. ON RA WITH SPO2 >92%. POSITIONED IN BED WITH HEELS FLOATED WITH PILLOWS. GIVEN SNACK. BED IN LOWEST POSITION AND CALL LIGHT WITHIN REACH.
[2024-01-27 23:11] LABS: Bun/Creatinine Ratio 20.8 (12.0-20.0); Calcium, Blood 6.6 mg/dL (8.5-10.1); Creatinine, Blood 3.17 mg/dL (0.60-1.20); Potassium, Blood 3.6 mmol/L (3.5-5.5)
[2024-01-28 04:05] VITALS: BP 157/69
[2024-01-28 04:30] LABS: Hematocrit 23.2 % (37.0-53.0); Hemoglobin 7.8 g/dL (13.5-17.5); Mean Corpuscular HGB 29.1 pg (26.0-34.0); Mean Corpuscular HGB Conc 33.6 g/dL (31.5-36.5); Mean Corpuscular Volume 87 fL (80-100); Mean Platelet Volume 9.8 fL (9.1-12.4); Platelet Count 125 K/mm3 (150-400); RDW Coefficient Variation 21.5 % (11.7-14.2); Red Blood Cell Count 2.68 M/mm3 (4.30-5.90); White Blood Cell Count 4.35 K/mm3 (4.00-11.30)
--- NOTE | 2024-01-28 04:31 | NUR ---
SHIFT SUMMARY SEE PREVIOUS NOTE. NO ACUTE CHANGES. VSS. PT IRRITABLE WITH STAFF AT TIMES WHEN ASSISTING WITH ADL'S. QUIGLEY CATHETER PATENT AND DRAINING TO GRAVITY. HEELS FLOATED. BICARB GTT INFUSING PER EMAR. BED IN LOWEST POSITION AND CALL LIGHT WITHIN REACH. THIS RN WILL REPORT TO ONCOMING DAYSHIFT RN.
[2024-01-28 05:00] LABS: Magnesium, Blood 1.8 mg/dL (1.6-2.4)
[2024-01-28 05:02] LABS: Albumin, Blood 2.1 g/dL (3.4-5.0); Anion Gap 13 mmol/L (3-11); Blood Urea Nitrogen 65 mg/dL (8-24); CO2, Blood 17 mmol/L (21-32); Calcium, Blood 7.2 mg/dL (8.5-10.1); Chloride, Blood 115 mmol/L (98-108); Glomerular Filtration Rate 21 (60-); Glucose, Blood 279 mg/dL (70-99); Phosphorus, Blood 7.2 mg/dL (2.5-4.9); Sodium, Blood 141 mmol/L (136-145)
[2024-01-28 07:38] VITALS: BP 164/83
[2024-01-28] MEDS ORDERED: TraMADol HCl 50 MG Tab PO PRN (09:50)
[2024-01-28 15:21] VITALS: BP 154/72
--- NOTE | 2024-01-28 16:38 | NUR ---
SHIFT SUMMARY: PT ALERT AND ORIENTED X4, ABLE TO FOLLOW COMMANDS AND MAKE NEEDS KNOWN. STRENGTH EQUAL BILATERALLY. BP AND HR STABLE. AFEBRILE. SPO2 >98% ON ROOM AIR. RESPIRATIONS EVEN AND UNLABORED. ABD SOFT, NON TENDER, BOWEL SOUNDS +. PULSES STRONG AND EQUAL THROUGHOUT. CBG ELEVATED THROUGHOUT THIS SHIFT, SLIDING SCALE ADJUSTED FROM LOW TO MEDIUM. PT/OT ORDERED. QUIGLEY CATH IN PLACE, PATENT, DRAINING YELLOW URINE TO GRAVITY. NO BM. PT ABLE TO REPOS IND IN BED. BED IN LOW, CALL LIGHT IN REACH, WILL REPORT TO ONCOMING RN.
[2024-01-28 18:29] VITALS: BP 158/76
--- NOTE | 2024-01-28 18:38 | NUR ---
PT ARRIVED TO THE MEDICAL FLOOR VIA BED. PT ORIENTED TO ROOM. WILL GIVE REPORT TO ONCOMING RN.
[2024-01-28 19:48] VITALS: BP 150/63
[2024-01-28 21:00] LABS: Vancomycin, Random 17.1 ug/mL
[2024-01-28] MEDS ORDERED: Insulin Human Lispro 100 Units/ML 3ML Syringe SC SCH (21:00)
[2024-01-29 03:12] VITALS: BP 158/65
--- NOTE | 2024-01-29 06:25 | NUR ---
PATIENT ALERT AND ORIENTED X4, PLEASANT, COOPERATIVE WITH CARE. SODIUM BICARB DRIP INFUSING IN PATIENT'S RIGHT ARM PIV, TOLERATED WELL. QUIGLEY CATHETER IN PLACE AND DRAINING APPROPRIATELY WITH GOOD OUTPUT, PATIENT REFUSED THIS RN TO CHANGE CATHETER OVERNIGHT ORDERED.
[2024-01-29 07:39] VITALS: BP 172/72
[2024-01-29 09:50] LABS: Albumin, Blood 2.3 g/dL (3.4-5.0); Anion Gap 12 mmol/L (3-11); Blood Urea Nitrogen 48 mg/dL (8-24); Bun/Creatinine Ratio 17.8 (12.0-20.0); CO2, Blood 26 mmol/L (21-32); Calcium, Blood 7.2 mg/dL (8.5-10.1); Chloride, Blood 108 mmol/L (98-108); Creatinine, Blood 2.69 mg/dL (0.60-1.20); Glomerular Filtration Rate 25 (60-); Glucose, Blood 230 mg/dL (70-99); Phosphorus, Blood 4.3 mg/dL (2.5-4.9); Potassium, Blood 3.6 mmol/L (3.5-5.5); Sodium, Blood 142 mmol/L (136-145)
[2024-01-29 12:07] LABS: Source, Urine Foley catheter
[2024-01-29 12:24] LABS: Bilirubin, Urine Neg (Neg); Blood, Urine 2+ (Neg); Glucose Qualitative, Urine 3+ (Neg); Ketones, Urine Neg (Neg); Leukocyte Esterase, Urine 3+ (Neg); Nitrite, Urine Neg (Neg); Protein, Urine 3+ (Neg); Urobilinogen, Urine NORM (Normal)
[2024-01-29 12:36] LABS: Appearance, Urine Hazy (Clear); Color, Urine Pale Yellow (P-Yellow)
[2024-01-29 12:39] LABS: Bacteria Many /hpf; Hyaline Casts 0-2 /lpf (0-2); White Blood Cells, Urine 50-100 /hpf (0-5)
[2024-01-29 12:40] LABS: Yeast/Fungi Urine Mod /hpf
[2024-01-29 12:41] LABS: Granular Casts 0-2 /lpf (0); Mucus Light (0-Heavy); Squamous Epithelial Cells Not Seen /hpf (Few)
--- NOTE | 2024-01-29 13:42 | NUR ---
SHIFT/DISCHARGE SUMMARY: PATIENT A/OX4, CALM, PLEASANT AND COOPERATIVE c CARE THIS SHIFT. PATIENT REPORTS PAIN TO L LEG/BACK, MEDICATED c PRN PO MEDS c GOOD RELIEF. PATIENT HAS CHRONIC QUIGLEY, PER NOC RN REPORTS QUIGLEY WAS NOT CHANGED IN ED D/T PATIENT REFUSAL, ATTEMPTED LAST NIGHT TO CHANGED, BUT PATIENT DECLINE. PATIENT ALLOWED THIS RN TO CHANGED HIS QUIGLEY. 16 FR QUIGLEY PLACED c 10 MLS BALLOON, PATIENT TOLERATED WELL T/O THE PROCESS. UA SENT TO LAB PER PROTOCOL. EDUCATE PATIENT THE RISK/BENIFITS OF HAVING QUIGLEY AND CATH CARE. PATIENT VERBALIZED UNDERSTANDING AND NO FURTHER QUESTIONS. PATIENT RECEIVED BEDBATH AND LINEN CHANGED THIS AM. PATIENT RECEIVED IV ABX AND SCHEDULED MEDS PER EMAR. VITAL SIGNS REVIEWED. PATIENT DENIES CP/PRESSURE, SOB, N/V AND DIZZINESS WHEN ASKED T/O THE DAY. PIV TO R FOREARM DC'D. THIS RN SPOKE TO BY [employer] ASSOCIATE VIA PHONE TO NOTIFY PATIENT DICHARGING TODAY EXPECTED CABLE FERRY OPERATOR AT 1300. PER ASSOCIATE SHE WILL MAKE SURE CAREGIVER WILL BE AT PATIENT APARTMENT WHEN HE ARRIVED. PATIENT DISCHARGE HOME. DICHARGE INSTRUCTION PACKET GIVEN TO PATIENT. EDUCATE PATIENT REGARDING ADMITTING DX'S OF DKA, S/S, TX, SELF CARE, QUIGLEY CATH CARE, RX AND TO F/U c PCP WITHIN A WEEK. PATIENT VERBALIZED UNDERSTANDING AND NO FURTHER QUESTIONS AT THIS TIME. RX WAS FAXED TO PATIENT PREFERRED PHARMACY. ALL PATIENT PERSONAL BELONGINGS WERE SENT HOME c THE PATIENT. PATIENT LEFT THE ROOM AT 1350 AND TRANSPORRTED VIA WHEELCHAIR BY [employer] ASSOCIATE.
[2024-01-29] MEDS ORDERED: Insulin Glargine-Yfgn 100 Unit/mL 3 ML SYR SC SCH (21:00)
== END 2024-01-29 13:50 | disposition home health service (06) | DRG 683 ==
LOC: ER 11:50 → ICUE 20:48 → PCU 01-27 22:11 → MEDS 01-28 18:19 → ENPENDDIS 01-29 11:09 → MEDS 01-29 13:50
PROVIDERS: Internal Medicine; Internal Medicine Nephrology; Pharmacist Pharmacotherapy; Student in an Organized Health Care Education/Training Program; ADMIT Internal Medicine
DX: N17.9 Acute kidney failure, unspecified (principal); E87.20 Acidosis, unspecified; N18.4 Chronic kidney disease, stage 4 (severe); E11.22 Type 2 diabetes mellitus with diabetic chronic kidney disease; E11.65 Type 2 diabetes mellitus with hyperglycemia; E11.649 Type 2 diabetes mellitus with hypoglycemia without coma; E83.39 Other disorders of phosphorus metabolism; E07.81 Sick-euthyroid syndrome; Z66 Do not resuscitate; I12.9 Hypertensive chronic kidney disease with stage 1 through stage 4 chronic kidney disease, or unspecified chronic kidney disease; J44.9 Chronic obstructive pulmonary disease, unspecified; G89.29 Other chronic pain; M54.50 Low back pain, unspecified; F17.210 Nicotine dependence, cigarettes, uncomplicated; D63.1 Anemia in chronic kidney disease; E86.9 Volume depletion, unspecified; E11.42 Type 2 diabetes mellitus with diabetic polyneuropathy; Z87.440 Personal history of urinary (tract) infections; Z88.0 Allergy status to penicillin; Z88.8 Allergy status to other drugs, medicaments and biological substances; Z79.4 Long term (current) use of insulin; Z79.890 Hormone replacement therapy
CPT/HCPCS: 36415; 36600; 71045; 76770; 80048; 80053; 80069; 80202; 81001; 81003; 82010; 82803; 82947; 83036; 83605; 83735; 83880; 83930; 84100; 84439; 84443; 84481; 84482; 85025; 85027; 87040; 87077; 87086; 87106; 87186; 93005; 93010; 94762; 96365; 96367; 96375; 97110; 97162; 97530; 99285-25; A9270; C9113; G0480; J0696; J1650; J1815; J2405; J3010; J3370; J7030; J7050; J7070

== ENCOUNTER → 2024-02-08 | Outpatient (CLI) | payer MEDICARE, OTHER ==
[2024-02-08 15:47] LABS: Alanine Aminotransfer (ALT/SGP 43 U/L (12-78); Albumin, Blood 2.6 g/dL (3.4-5.0); Albumin/Globulin Ratio 0.7 (0.8-1.8); Alk Phos 90 U/L (50-136); Anion Gap 13 mmol/L (3-11); Aspartate Aminotrans (AST/SGOT 21 U/L (12-37); Bilirubin, Direct <0.1 mg/dL (0.0-0.3); Bilirubin, Indirect Unable to Calculate mg/dL (0.1-0.7); Bilirubin, Total 0.2 mg/dL (0.1-1.0); Blood Urea Nitrogen 45 mg/dL (8-24); Bun/Creatinine Ratio 15.8 (12.0-20.0); CO2, Blood 17 mmol/L (21-32); Calcium, Blood 8.1 mg/dL (8.5-10.1); Chloride, Blood 113 mmol/L (98-108); Creatinine, Blood 2.84 mg/dL (0.60-1.20); Globulin, Blood 3.7 g/dL (2.2-4.0); Glomerular Filtration Rate 24 (60-); Glucose, Blood 238 mg/dL (70-99); Phosphorus, Blood 5.2 mg/dL (2.5-4.9); Potassium, Blood 4.8 mmol/L (3.5-5.5); Sodium, Blood 138 mmol/L (136-145); Total Protein, Blood 6.3 g/dL (6.4-8.2)
[2024-02-08 16:04] LABS: BASOPHILS ABSOLUTE AUTO 0.06 K/mm3 (0.00-0.23); BASOPHILS PERCENT AUTO 1 % (0-2); EOSINOPHILS ABSOLUTE AUTO 0.16 K/mm3 (0.00-0.68); EOSINOPHILS PERCENT AUTO 2 % (0-6); Hematocrit 29.5 % (37.0-53.0); Hemoglobin 9.4 g/dL (13.5-17.5); IMMATURE GRAN ABSOLUTE AUTO 0.05 K/mm3 (0.00-0.10); IMMATURE GRAN PERCENT AUTO 1 % (0-1); LYMPHOCYTES ABSOLUTE AUTO 1.37 K/mm3 (0.84-5.20); LYMPHOCYTES PERCENT AUTO 20 % (21-46); MONOCYTES ABSOLUTE AUTO 0.44 K/mm3 (0.16-1.47); MONOCYTES PERCENT AUTO 6 % (4-13); Mean Corpuscular HGB 29.5 pg (26.0-34.0); Mean Corpuscular HGB Conc 31.9 g/dL (31.5-36.5); Mean Corpuscular Volume 93 fL (80-100); NEUTROPHILS ABSOLUTE AUTO 4.86 K/mm3 (1.96-9.15); NEUTROPHILS PERCENT AUTO 70 % (41-73); RDW Coefficient Variation 17.3 % (11.7-14.2); RDW Standard Deviation 59.3 fL (35.1-46.3); Red Blood Cell Count 3.19 M/mm3 (4.30-5.90); White Blood Cell Count 6.94 K/mm3 (4.00-11.30)
== END | disposition home or self-care (01) ==
LOC: LAB 14:59 → LAB SHORT 14:59
PROVIDERS: Internal Medicine Nephrology
DX: E11.22 Type 2 diabetes mellitus with diabetic chronic kidney disease (principal); N18.30 Chronic kidney disease, stage 3 unspecified; D63.1 Anemia in chronic kidney disease; E44.1 Mild protein-calorie malnutrition
CPT/HCPCS: 80053; 82248; 83970; 84100; 85025

== ENCOUNTER → 2024-02-10 | Outpatient (CLI) | payer MEDICARE, OTHER ==
[2024-02-10 12:32] LABS: Creatinine Urine 34.8 mg/dL (27.00-270.00)
== END ==
LOC: LAB SHORT 10:21 → LAB 10:21
PROVIDERS: Internal Medicine Nephrology
DX: N18.30 Chronic kidney disease, stage 3 unspecified (principal); D63.1 Anemia in chronic kidney disease; N25.81 Secondary hyperparathyroidism of renal origin; E55.9 Vitamin D deficiency, unspecified; E29.1 Testicular hypofunction; R76.9 Abnormal immunological finding in serum, unspecified; R94.5 Abnormal results of liver function studies; R94.6 Abnormal results of thyroid function studies
CPT/HCPCS: 81050; 82043; 82570; 84156

== ENCOUNTER 2024-03-13 11:37 | Emergency (ER) | payer MEDICARE, OTHER ==
[~2024-03-13] VITALS: Ht 180.3 cm; Wt 101.2 kg
[2024-03-13 12:13] LABS: Source, Urine Foley catheter
[2024-03-13 12:22] LABS: Appearance, Urine Cloudy (Clear); Bilirubin, Urine Neg (Neg); Blood, Urine 5+ (Neg); Color, Urine Red (P-Yellow); Glucose Qualitative, Urine Neg (Neg); Ketones, Urine 1+ (Neg); Leukocyte Esterase, Urine 3+ (Neg); Nitrite, Urine Pos (Neg); Protein, Urine 3+ (Neg); Specific Gravity, Urine 1.015 (1.003-1.022); Urobilinogen, Urine NORM (Normal)
[2024-03-13] MEDS ORDERED: Lactated Ringer's 1,000 ML IV ONE (12:35)
[2024-03-13 12:38] LABS: Bacteria Many /hpf; Red Blood Cells, Urine TNTC /hpf (0-2); Squamous Epithelial Cells Rare /hpf (Few); White Blood Cells, Urine 25-50 /hpf (0-5); Yeast/Fungi Urine Many /hpf
[2024-03-13 13:19] LABS: BASOPHILS ABSOLUTE AUTO 0.03 K/mm3 (0.00-0.23); BASOPHILS PERCENT AUTO 1 % (0-2); EOSINOPHILS PERCENT AUTO 2 % (0-6); Hematocrit 27.5 % (37.0-53.0); Hemoglobin 8.6 g/dL (13.5-17.5); IMMATURE GRAN ABSOLUTE AUTO 0.01 K/mm3 (0.00-0.10); IMMATURE GRAN PERCENT AUTO 0 % (0-1); LYMPHOCYTES ABSOLUTE AUTO 1.13 K/mm3 (0.84-5.20); LYMPHOCYTES PERCENT AUTO 23 % (21-46); MONOCYTES ABSOLUTE AUTO 0.37 K/mm3 (0.16-1.47); MONOCYTES PERCENT AUTO 8 % (4-13); Mean Corpuscular HGB 29.4 pg (26.0-34.0); Mean Corpuscular HGB Conc 31.3 g/dL (31.5-36.5); Mean Corpuscular Volume 94 fL (80-100); Mean Platelet Volume 10.1 fL (9.1-12.4); NEUTROPHILS ABSOLUTE AUTO 3.19 K/mm3 (1.96-9.15); NEUTROPHILS PERCENT AUTO 66 % (41-73); Platelet Count 95 K/mm3 (150-400); RDW Coefficient Variation 17.2 % (11.7-14.2); RDW Standard Deviation 59.7 fL (35.1-46.3); Red Blood Cell Count 2.93 M/mm3 (4.30-5.90); White Blood Cell Count 4.83 K/mm3 (4.00-11.30)
[2024-03-13 14:06] LABS: Albumin, Blood 2.4 g/dL (3.4-5.0); Albumin/Globulin Ratio 0.8 (0.8-1.8); Bilirubin, Total 0.2 mg/dL (0.1-1.0); Bun/Creatinine Ratio 16.8 (12.0-20.0); Calcium, Blood 7.6 mg/dL (8.5-10.1); Creatinine, Blood 2.44 mg/dL (0.60-1.20); Globulin, Blood 3.1 g/dL (2.2-4.0); Potassium, Blood 4.7 mmol/L (3.5-5.5); Total Protein, Blood 5.5 g/dL (6.4-8.2)
[2024-03-13] MEDS ORDERED: Nitrofurantoin/Nitrofuran Mac 100 MG Cap PO ONE (15:05)
[2024-03-13 17:48] VITALS: BP 166/83
== END 2024-03-13 17:48 | disposition home or self-care (01) ==
LOC: ER 11:37
PROVIDERS: Physician Assistant
DX: R31.9 Hematuria, unspecified (principal); E11.22 Type 2 diabetes mellitus with diabetic chronic kidney disease; I12.9 Hypertensive chronic kidney disease with stage 1 through stage 4 chronic kidney disease, or unspecified chronic kidney disease; N18.9 Chronic kidney disease, unspecified; N17.9 Acute kidney failure, unspecified; E03.9 Hypothyroidism, unspecified; J44.9 Chronic obstructive pulmonary disease, unspecified; G89.29 Other chronic pain; M54.9 Dorsalgia, unspecified; F17.210 Nicotine dependence, cigarettes, uncomplicated; Z87.440 Personal history of urinary (tract) infections; Z96.0 Presence of urogenital implants; Z79.4 Long term (current) use of insulin; Z79.899 Other long term (current) drug therapy; Z88.0 Allergy status to penicillin; Z88.8 Allergy status to other drugs, medicaments and biological substances
CPT/HCPCS: 76770; 80053; 81001; 85025; 87086; 96360; 99284-25; J7120

== ENCOUNTER 2024-05-29 12:16 | Emergency (ER) | payer MEDICARE, OTHER ==
[~2024-05-29] VITALS: Ht 177.8 cm; Wt 102.1 kg
[2024-05-29] MEDS ORDERED: HYDROcodone 5-APAP 325 TAB PO ONE (12:40)
[2024-05-29 13:20] LABS: Source, Urine Foley catheter
[2024-05-29 13:22] LABS: Appearance, Urine Hazy (Clear); Bilirubin, Urine Neg (Neg); Blood, Urine 2+ (Neg); Glucose Qualitative, Urine Neg (Neg); Ketones, Urine Neg (Neg); Leukocyte Esterase, Urine 3+ (Neg); Nitrite, Urine Neg (Neg); Protein, Urine 3+ (Neg); Urobilinogen, Urine NORM (Normal)
[2024-05-29 13:43] LABS: Albumin, Blood 2.8 g/dL (3.4-5.0); Albumin/Globulin Ratio 0.8 (0.8-1.8); Bilirubin, Total 0.2 mg/dL (0.1-1.0); Bun/Creatinine Ratio 17.8 (12.0-20.0); Calcium, Blood 8.1 mg/dL (8.5-10.1); Creatinine, Blood 2.81 mg/dL (0.60-1.20); Globulin, Blood 3.5 g/dL (2.2-4.0); Potassium, Blood 5.6 mmol/L (3.5-5.5); Total Protein, Blood 6.3 g/dL (6.4-8.2)
[2024-05-29] MEDS ORDERED: VELTASSA 8.4 GM (13:43)
[2024-05-29] MEDS ORDERED: LEVSOD25 PO (13:44)
[2024-05-29] MEDS ORDERED: FERSU300 PO (13:45)
[2024-05-29] MEDS ORDERED: GABA300 PO (13:47)
[2024-05-29 13:51] LABS: Color, Urine Pale Yellow (P-Yellow)
[2024-05-29 13:52] LABS: Bacteria Many /hpf; Mucus Light (0-Heavy); Squamous Epithelial Cells Rare /hpf (Few); White Blood Cells, Urine 25-50 /hpf (0-5)
[2024-05-29 14:13] LABS: BASOPHILS ABSOLUTE AUTO 0.07 K/mm3 (0.00-0.23); BASOPHILS PERCENT AUTO 1 % (0-2); EOSINOPHILS PERCENT AUTO 1 % (0-6); Hematocrit 34.1 % (37.0-53.0); Hemoglobin 10.9 g/dL (13.5-17.5); IMMATURE GRAN ABSOLUTE AUTO 0.08 K/mm3 (0.00-0.10); IMMATURE GRAN PERCENT AUTO 1 % (0-1); LYMPHOCYTES ABSOLUTE AUTO 1.03 K/mm3 (0.84-5.20); LYMPHOCYTES PERCENT AUTO 14 % (21-46); MONOCYTES ABSOLUTE AUTO 0.43 K/mm3 (0.16-1.47); MONOCYTES PERCENT AUTO 6 % (4-13); Mean Corpuscular HGB 29.5 pg (26.0-34.0); Mean Corpuscular Volume 92 fL (80-100); NEUTROPHILS ABSOLUTE AUTO 5.51 K/mm3 (1.96-9.15); NEUTROPHILS PERCENT AUTO 76 % (41-73); RDW Coefficient Variation 17.4 % (11.7-14.2); RDW Standard Deviation 58.7 fL (35.1-46.3); White Blood Cell Count 7.22 K/mm3 (4.00-11.30)
[2024-05-29 14:38] LABS: Influenza A, PCR NEGATIVE (NEGATIVE); Influenza B, PCR NEGATIVE (NEGATIVE); Resp Syncytial Virus, PCR NEGATIVE (NEGATIVE); SARS-Cov-2 (COVID-19) PCR, MMC NEGATIVE (NEGATIVE)
[2024-05-29] MEDS ORDERED: SULTRIDS PO (15:34)
[2024-05-29 15:55] VITALS: BP 164/79
[2024-05-29] MEDS ORDERED: OxyCODONE HCL 5 MG TAB PO ONE (16:50)
== END 2024-05-29 17:03 | disposition home or self-care (01) ==
LOC: ER 12:16
PROVIDERS: Emergency Medicine
DX: T83.511A Infection and inflammatory reaction due to indwelling urethral catheter, initial encounter (principal); N30.00 Acute cystitis without hematuria; R19.7 Diarrhea, unspecified; E87.5 Hyperkalemia; E87.8 Other disorders of electrolyte and fluid balance, not elsewhere classified; E86.0 Dehydration; I12.9 Hypertensive chronic kidney disease with stage 1 through stage 4 chronic kidney disease, or unspecified chronic kidney disease; E11.22 Type 2 diabetes mellitus with diabetic chronic kidney disease; N18.4 Chronic kidney disease, stage 4 (severe); E11.42 Type 2 diabetes mellitus with diabetic polyneuropathy; J44.9 Chronic obstructive pulmonary disease, unspecified; E03.9 Hypothyroidism, unspecified; E78.5 Hyperlipidemia, unspecified; F17.210 Nicotine dependence, cigarettes, uncomplicated; Z79.4 Long term (current) use of insulin; Z79.890 Hormone replacement therapy; Z79.899 Other long term (current) drug therapy
CPT/HCPCS: 0241U; 51702; 80053; 81001; 85025; 87086; 99283-25; A9270

== ENCOUNTER → 2024-07-05 | Outpatient (CLI) | payer MEDICARE, OTHER ==
[~2024-07-05] MED LIST changes: +FERSU300 PO; +GABA300 PO; +LEVSOD25 PO; +SULTRIDS PO; +VELTASSA 8.4 GM
== END ==
LOC: LAB SHORT 12:26 → LAB 12:26
PROVIDERS: Internal Medicine Nephrology
DX: K80.20 Calculus of gallbladder without cholecystitis without obstruction (principal)
CPT/HCPCS: 82365

== ENCOUNTER 2025-01-23 11:29 | Inpatient (IN) | payer OTHER ==
[~2025-01-23] VITALS: Ht 182.9 cm; Wt 65.7 kg
[~2025-01-23 11:29] MED LIST changes: -VELTASSA 8.4 GM
[2025-01-23] MEDS ORDERED: ARANESP40 MCG/0.1 SC (16:04)
[2025-01-23 16:05] LABS: BASOPHILS ABSOLUTE AUTO 0.03 K/mm3 (0.00-0.23); BASOPHILS PERCENT AUTO 0 % (0-2); EOSINOPHILS ABSOLUTE AUTO 0.07 K/mm3 (0.00-0.68); EOSINOPHILS PERCENT AUTO 1 % (0-6); Hematocrit 20.8 % (37.0-53.0); Hemoglobin 6.7 g/dL (13.5-17.5); IMMATURE GRAN ABSOLUTE AUTO 0.04 K/mm3 (0.00-0.10); IMMATURE GRAN PERCENT AUTO 0 % (0-1); LYMPHOCYTES ABSOLUTE AUTO 1.04 K/mm3 (0.84-5.20); LYMPHOCYTES PERCENT AUTO 11 % (21-46); MONOCYTES ABSOLUTE AUTO 0.62 K/mm3 (0.16-1.47); MONOCYTES PERCENT AUTO 6 % (4-13); Mean Corpuscular HGB 28.5 pg (26.0-34.0); Mean Corpuscular HGB Conc 32.2 g/dL (31.5-36.5); Mean Corpuscular Volume 89 fL (80-100); Mean Platelet Volume 11.3 fL (9.1-12.4); NEUTROPHILS ABSOLUTE AUTO 7.92 K/mm3 (1.96-9.15); NEUTROPHILS PERCENT AUTO 82 % (41-73); Platelet Count 163 K/mm3 (150-400); RDW Coefficient Variation 18.7 % (11.7-14.2); Red Blood Cell Count 2.35 M/mm3 (4.30-5.90); White Blood Cell Count 9.72 K/mm3 (4.00-11.30)
[2025-01-23] MEDS ORDERED: LORA10ER PO (16:05)
[2025-01-23] MEDS ORDERED: BUME2 PO (16:08)
[2025-01-23] MEDS ORDERED: ESCI10 PO (16:09)
[2025-01-23] MEDS ORDERED: CLOBETTC TOP (16:10)
[2025-01-23] MEDS ORDERED: PROCRIT40000 UNIT (16:10)
[2025-01-23] MEDS ORDERED: LEVOTHYROXINE25 MC9 PO (16:12)
[2025-01-23] MEDS ORDERED: METO100ER PO (16:12)
[2025-01-23] MEDS ORDERED: LACT PO (16:13)
[2025-01-23] MEDS ORDERED: MAGNESIUM OXID500 MG PO (16:13)
[2025-01-23] MEDS ORDERED: BASAGLAR K100 UNIT/6 (16:14)
[2025-01-23] MEDS ORDERED: Prochlorperazine Edisylate 10 mg Vial IV PRN (16:25)
[2025-01-23] MEDS ORDERED: TraMADol HCl 50 MG Tab PO PRN (16:30)
[2025-01-23 16:37] LABS: C-REACTIVE PROTEIN, EXT RANGE 7.01 mg/dL (0.000-0.300)
[2025-01-23] MEDS ORDERED: Albuterol HFA200 ACT/6.7 GM INH INH PRN (16:40)
[2025-01-23] MEDS ORDERED: CeFAZolin Sodium 1,000 MG in NS 50 ML IV ONE (16:40)
[2025-01-23 16:43] LABS: International Normalized Ratio 1.14; Prothrombin Time Results 12.4 Sec (9.7-11.5)
[2025-01-23 16:46] LABS: Albumin, Blood 0.5 g/dL (3.4-5.0); Albumin/Globulin Ratio 0.1 (0.8-1.8); Bilirubin, Total 0.3 mg/dL (0.1-1.0); Bun/Creatinine Ratio 24.5 (12.0-20.0); Calcium, Blood 6.5 mg/dL (8.5-10.1); Creatinine, Blood 3.18 mg/dL (0.60-1.20); Globulin, Blood 5.2 g/dL (2.2-4.0); Potassium, Blood 3.8 mmol/L (3.5-5.5); Total Protein, Blood 5.7 g/dL (6.4-8.2)
[2025-01-23 20:01] LABS: Percent Saturation 15.2 % (20.0-50.0)
[2025-01-23] MEDS ORDERED: NS 500 ML IV SCH ×2 (20:20)
[2025-01-23 20:51] VITALS: BP 101/57
[2025-01-23] MEDS ORDERED: Sodium Bicarbonate 650 MG Tab PO SCH (21:00)
[2025-01-23] MEDS ORDERED: Gabapentin 300 MG Cap PO SCH (21:00)
[2025-01-23] MEDS ORDERED: Lactobacil 2-S.Thermo-Bifido 1 1 Cap PO SCH (21:00)
[2025-01-23] MEDS ORDERED: Insulin Glargine-Yfgn 100 Unit/mL 3 ML SYR SC SCH (21:00)
[2025-01-23] MEDS ORDERED: Docusate Sodium 100 MG Cap PO SCH (21:00)
[2025-01-23] MEDS ORDERED: Metoprolol Succinate 50 MG TABCR PO SCH (21:00)
[2025-01-23] MEDS ORDERED: NARCAN4 M1 (21:48)
[2025-01-23] MEDS ORDERED: CENTRUM SILVER1 EAC2 PO (21:49)
[2025-01-23 22:01] VITALS: BP 117/64
[2025-01-23 22:11] VITALS: BP 117/64
--- NOTE | 2025-01-23 22:42 | NUR ---
1 UNIT PRBC'S INFUSING PER ORDERS. PT STATES THAT HE HAS HAD TRANSFUSIONS BEFORE. HAVE DONE CULTURE OF RIGHT ARM ABCESS. PT IS ABLE TO MAKE SOME ADJUSTMENTS IN BED. DOES STATE THAT HE IS BEDBOUND AT HOME BUT DOES HAVE WHEELCHAIR. LIVES IN [place] APARTMENTS. HAS HELP AT HOME. NO S/S TRANSFUSION REACTIONS. PT FAIR HISTORIAN. DID COMPLETE MOST OF ADMISSION PROCESS FROM [facility] P[facility]WORK.
[2025-01-23 23:14] VITALS: BP 124/66
[2025-01-23 23:16] VITALS: BP 124/66
[2025-01-24] VITALS (22 sets, daily range): BP systolic 104–128; BP diastolic 43–71
--- NOTE | 2025-01-24 04:29 | NUR ---
NOTE TELLER SUMMARY: PT RECEIVED 1 UNIT PRBC'S; NO ADVERSE REACTIONS NOTED. PT RESTING COMFORTABLY IN BED T/O SHIFT. MAKES NEEDS KNOWN. NO ACUTE DISTRESS / EVENTS. BED IN LOWEST POSITION. CALL LIGHT IN REACH. CARES ONGOING ORDERED.
[2025-01-24] MEDS ORDERED: CeFAZolin Sodium 1,000 MG in NS 50 ML IV SCH (05:00)
[2025-01-24 05:45] LABS: Bun/Creatinine Ratio 25.1 (12.0-20.0); Calcium, Blood 6.6 mg/dL (8.5-10.1); Creatinine, Blood 2.55 mg/dL (0.60-1.20); Percent Saturation 46.8 % (20.0-50.0); Potassium, Blood 3.1 mmol/L (3.5-5.5)
[2025-01-24] MEDS ORDERED: Levothyroxine Sodium 0.1 MG Tab PO SCH (06:00)
[2025-01-24] MEDS ORDERED: Lactated Ringer's 1,000 ML IV SCH ×3 (07:05→11:10)
[2025-01-24] MEDS ORDERED: Potassium Chl 10MEQ/Water100ML 100 ML IV SCH (07:10)
[2025-01-24] MEDS ORDERED: Dextrose 50% 50 ML Syringe IV PRN (07:30)
[2025-01-24 07:37] LABS: BASOPHILS ABSOLUTE AUTO 0.03 K/mm3 (0.00-0.23); BASOPHILS PERCENT AUTO 0 % (0-2); EOSINOPHILS ABSOLUTE AUTO 0.08 K/mm3 (0.00-0.68); EOSINOPHILS PERCENT AUTO 1 % (0-6); Hematocrit 24.5 % (37.0-53.0); Hemoglobin 7.9 g/dL (13.5-17.5); IMMATURE GRAN ABSOLUTE AUTO 0.03 K/mm3 (0.00-0.10); IMMATURE GRAN PERCENT AUTO 0 % (0-1); LYMPHOCYTES ABSOLUTE AUTO 0.93 K/mm3 (0.84-5.20); LYMPHOCYTES PERCENT AUTO 11 % (21-46); MONOCYTES ABSOLUTE AUTO 0.46 K/mm3 (0.16-1.47); MONOCYTES PERCENT AUTO 6 % (4-13); Mean Corpuscular HGB 29.2 pg (26.0-34.0); Mean Corpuscular HGB Conc 32.2 g/dL (31.5-36.5); Mean Corpuscular Volume 90 fL (80-100); Mean Platelet Volume 10.4 fL (9.1-12.4); NEUTROPHILS ABSOLUTE AUTO 6.62 K/mm3 (1.96-9.15); NEUTROPHILS PERCENT AUTO 81 % (41-73); Platelet Count 143 K/mm3 (150-400); RDW Coefficient Variation 18.2 % (11.7-14.2); RDW Standard Deviation 59.7 fL (35.1-46.3); Red Blood Cell Count 2.71 M/mm3 (4.30-5.90); White Blood Cell Count 8.15 K/mm3 (4.00-11.30)
--- NOTE | 2025-01-24 07:43 | NUR ---
LAUNDRY PRESSER STATED PT BLOOD SUGAR WAS 32. STUDENT RN SPOKE WITH DR. WALLACE REGARDING NEED FOR AM LABS WELL REPORTING BLOOD SUGAR. ORDER FOR 25G DEXTROSE INJECTION PLACED AND GIVEN. WILL RECHECK BLOOD SUGAR.
--- NOTE | 2025-01-24 07:54 | NUR ---
REPEAT BLOOD SUGAR POST DEXTROSE AMP 134
[2025-01-24] MEDS ORDERED: Bumetanide 1 MG Tab PO SCH (09:00)
[2025-01-24] MEDS ORDERED: Sod Ferric Gluc Complx/Sucrose 125 MG in NS 100 ML IV SCH (09:00)
[2025-01-24] MEDS ORDERED: Cholecalciferol 1000 Unit Tablet (=25MCG) PO SCH (09:00)
[2025-01-24] MEDS ORDERED: Potassium Chloride 10 Meq Tablet SA PO SCH (09:00)
[2025-01-24] MEDS ORDERED: AmLODIPine Besylate 5 MG Tab PO SCH (09:00)
[2025-01-24] MEDS ORDERED: Sodium Bicarbonate 650 MG Tab PO SCH ×2 (09:00)
[2025-01-24] MEDS ORDERED: Citalopram Hydrobromide 20 MG Tab PO SCH (09:00)
--- NOTE | 2025-01-24 11:23 | NUR ---
PT TAKEN DOWN FOR SURGERY AT THIS TIME
[2025-01-24] MEDS ORDERED: Dextrose 50% 50 ML Syringe IV ONE (12:05)
--- NOTE | 2025-01-24 12:06 | NUR ---
CBG 34 - CALL TO ACP RECEIVED ORDER FOR D50 25MLS
[2025-01-24] MEDS ORDERED: Bupivacaine 0.5% W/EPI 1:200000 SDV 30 ML Vial ONE (12:39)
[2025-01-24] MEDS ORDERED: Vancomycin HCl 1000 MG ADDvantage ONE (12:39)
[2025-01-24] MEDS ORDERED: SuccINYLCHOLINE Chloride 100 MG/5 ML 5MLSYR ONE (13:08)
[2025-01-24] MEDS ORDERED: CEPH500 PO (13:09)
[2025-01-24] MEDS ORDERED: CeFAZolin Sodium 2,000 MG in NS 100 ML IV SCH (13:10)
[2025-01-24] MEDS ORDERED: propofoL 20 ML IV ONE (13:19)
[2025-01-24] MEDS ORDERED: FentaNYL Citrate 50 MCG/ML 2 ML Injection ONE ×2 (13:19→13:58)
[2025-01-24] MEDS ORDERED: ePHEDrine Sulfate 50 MG/ML 1ML Injection ONE (13:19)
[2025-01-24] MEDS ORDERED: CeFAZolin Sodium 2,000 MG VIAL ONE (13:20)
[2025-01-24] MEDS ORDERED: FentaNYL Citrate 50 MCG/ML 2 ML Injection IV PRN ×2 (14:15→14:20)
[2025-01-24] MEDS ORDERED: HYDROmorphone HCl/Pf 1MG SYR IV PRN ×2 (14:15→14:20)
[2025-01-24] MEDS ORDERED: HYDROmorphone HCl/Pf 1MG SYR ONE (15:08)
[2025-01-24] MEDS ORDERED: Darbepoetin Alfa in Polysorbat 25 MCG/0.42 ML Syringe SC ONE (16:00)
[2025-01-24] MEDS ORDERED: Iron Dextran 50 MG / ML 2ML Vial IV ONE (16:00)
[2025-01-24] MEDS ORDERED: Iron Dextran 975 MG in NS 250 ML IV ONE (17:00)
[2025-01-24] MEDS ORDERED: NS IV ONE (17:00)
[2025-01-24] MEDS ORDERED: IRON DEXTRAN IV ONE (17:00)
--- NOTE | 2025-01-24 18:14 | NUR ---
PATIENT BECAME HYPOGLYCEMIC TODAY WITH A BLOOD SUGAR OF 32 REQUIRING IV DEXTROSE WHICH BROUGHT HIS BLOOD SUGAR UP TO 130'S. BLOOD SUGAR TANKED AGAIN IN SURGERY DURING I&D AND PLACEMENT OF GABBY GAONA DRAIN. WAS BROUGHT UP AGAIN WITH DEXTROSE. HE HAS A BIG APPETITE. 1ST DEGREE PRESSURE ULCER ON HIS COCCYX, NOW COVERED WITH MEPILEX. POC GLUCOSE BEFORE DINNER WAS 93. HIS FIRST BAG OF IRON DEXTRAN IS CURRENTLY RUNNING. WITH THE ANEMIA AND ORTHO DOC SUGGESTION OF 6 MONTHS OF ANTIBIOTICS THE PATIENT IS STAYING UNTIL WOUND CULTURES COME BACK. HE IS CURRENTLY SITTING UP IN THE BED EATING HIS DINNER. BED IS IN THE LOWEST POSITION, CALL LIGHT IS WITHIN REACH.
[2025-01-25 03:53] VITALS: BP 110/64
[2025-01-25 05:41] LABS: Hematocrit 22.4 % (37.0-53.0); Hemoglobin 7.4 g/dL (13.5-17.5)
[2025-01-25 06:02] LABS: Albumin, Blood 1.5 g/dL (3.4-5.0); Anion Gap 13 mmol/L (3-11); Blood Urea Nitrogen 58 mg/dL (8-24); Bun/Creatinine Ratio 24.4 (12.0-20.0); CO2, Blood 18 mmol/L (21-32); Calcium, Blood 6.3 mg/dL (8.5-10.1); Chloride, Blood 110 mmol/L (98-108); Creatinine, Blood 2.38 mg/dL (0.60-1.20); Glomerular Filtration Rate 29 (60-); Glucose, Blood 144 mg/dL (70-99); Magnesium, Blood 1.5 mg/dL (1.6-2.4); Phosphorus, Blood 7.5 mg/dL (2.5-4.9); Potassium, Blood 3.5 mmol/L (3.5-5.5); Sodium, Blood 137 mmol/L (136-145)
[2025-01-25] MEDS ORDERED: Mag Sulfate 1 GM/D5% 100ML 100 ML IV STA (06:40)
[2025-01-25 07:48] VITALS: BP 111/66
--- NOTE | 2025-01-25 08:12 | NUR ---
PEN TENDER SUMMARY: PT A&O X4. NO ACUTE EVENTS T/O SHIFT. MEDICATED X1 FOR NECK AND BACK PAIN; EFFECTIVE. HS CBG WAS 154. PT IS A 1-2 PERSON ASSIST WITH BED MOBILITY. TURN SCHEDULE IN PLACE. NO ADVERSE SIDE EFFECTS TO IV ABX. DRESSING TO R SHOULDER / NECK C/D/I. PLAN IS PENDING WOUND CULTURE FOR ABX THERAPY OUT PT. BED IN LOWEST POSITION. CALL LIGHT IN REACH. CARES ONGOING ORDERED.
[2025-01-25] MEDS ORDERED: Sodium Bicarbonate 650 MG Tab PO SCH (09:00)
[2025-01-25 11:49] VITALS: BP 126/72
[2025-01-25] MEDS ORDERED: VELTASSA PO (12:40)
[2025-01-25] MEDS ORDERED: TAMSULOSIN HCL0.4 M1 PO (12:41)
[2025-01-25] MEDS ORDERED: CHLO25B PO (12:42)
[2025-01-25] MEDS ORDERED: TraMADol HCl 50 MG Tab PO PRN (12:45)
[2025-01-25 15:46] VITALS: BP 120/63
[2025-01-25 19:44] VITALS: BP 106/55
--- NOTE | 2025-01-25 21:07 | NUR ---
SUMMARY- PT A/O X4, VERBAL AND PLEASANT, USES CALL LIGHT, ABLE TO MAKE NEEDS KNOWN, KNOWS HIS LIMITS. SHIFTS HIS OWN WEIGHT IN BED AND STAFF ASSIST PRN. STATES HE IS WHEELCHAIR BOUND, AND HE REFUSED PHYSICAL THERAPY STATES, "ALL I DO A HOME IS LAY AROUND ALL DAY, I DONT NEED EXERCISE". PT'S PAIN IS CHRONIC IN NATURE. STATES ULTRAM CONTROLLED PAIN FOR ABOUT 8 HOURS AND HE USUALLY TAKE S A DOSE AT HOME Q8. CALLED DR ESE TAPIA OK'D TO CHANGE TO Q8 BUT LATER CHANGED BACK TO Q12. PT WAS IN PAIN AGAIN ABOUT 7PM, NO MED AVAILABLE WILL HAVE TO WAIT UNTIL MIDNIGHT UNLESS TIFFANY RN TO CALL HOSP. DRAIN REMOVED TODAY PER DR BAKER, WROTE DRESSING OREDRS, CHANGED DRESSING WIHT XEREVORM AND ABD, SUTURES OVER 2 SITES APPROX 3-4" LONG, WELL APPROX, MOD SS DRAINAGE FROM OLD SITE. AMY ALVARENGA. REPORT TO TIFFANY LOYA
--- NOTE | 2025-01-26 04:01 | NUR ---
SHIFT SUMMARY PATIENT HAD NO ACUTE CHANGES. ALERT ORIENTED AND BEDREST. DENIES CHEST PAIN, SOB, AND N/V. VSS/AFEBRILE. CBG 201. QUIGLEY PATENT AND DRAINING TO GRAVITY. WOUND DRESSING RIGHT SHOULDER INTACT. SLEPT MOST OF THE SHIFT. CALL LIGHT IN REACH. BED IN LOWEST POSITION. WILL CONTINUE TO MONITOR UNTIL DAY SHIFT NURSE ASSUMES CARE.
[2025-01-26 04:58] VITALS: BP 120/66
[2025-01-26 06:35] LABS: Magnesium, Blood 1.9 mg/dL (1.6-2.4)
[2025-01-26 06:53] LABS: Albumin, Blood 1.7 g/dL (3.4-5.0); Anion Gap 16 mmol/L (3-11); Blood Urea Nitrogen 60 mg/dL (8-24); Bun/Creatinine Ratio 23.7 (12.0-20.0); CO2, Blood 17 mmol/L (21-32); Calcium, Blood 6.5 mg/dL (8.5-10.1); Chloride, Blood 109 mmol/L (98-108); Creatinine, Blood 2.53 mg/dL (0.60-1.20); Glomerular Filtration Rate 27 (60-); Phosphorus, Blood 7.2 mg/dL (2.5-4.9); Sodium, Blood 138 mmol/L (136-145)
[2025-01-26 06:53] LABS: BASOPHILS ABSOLUTE AUTO 0.05 K/mm3 (0.00-0.23); BASOPHILS PERCENT AUTO 1 % (0-2); EOSINOPHILS ABSOLUTE AUTO 0.12 K/mm3 (0.00-0.68); EOSINOPHILS PERCENT AUTO 1 % (0-6); Hematocrit 25.9 % (37.0-53.0); Hemoglobin 8.5 g/dL (13.5-17.5); IMMATURE GRAN ABSOLUTE AUTO 0.05 K/mm3 (0.00-0.10); IMMATURE GRAN PERCENT AUTO 1 % (0-1); LYMPHOCYTES ABSOLUTE AUTO 1.78 K/mm3 (0.84-5.20); LYMPHOCYTES PERCENT AUTO 18 % (21-46); MONOCYTES ABSOLUTE AUTO 0.59 K/mm3 (0.16-1.47); MONOCYTES PERCENT AUTO 6 % (4-13); Mean Corpuscular HGB 28.9 pg (26.0-34.0); Mean Corpuscular HGB Conc 32.8 g/dL (31.5-36.5); Mean Corpuscular Volume 88 fL (80-100); Mean Platelet Volume 9.3 fL (9.1-12.4); NEUTROPHILS ABSOLUTE AUTO 7.38 K/mm3 (1.96-9.15); NEUTROPHILS PERCENT AUTO 74 % (41-73); Platelet Count 215 K/mm3 (150-400); RDW Coefficient Variation 17.5 % (11.7-14.2); RDW Standard Deviation 56.4 fL (35.1-46.3); Red Blood Cell Count 2.94 M/mm3 (4.30-5.90); White Blood Cell Count 9.97 K/mm3 (4.00-11.30)
[2025-01-26 06:55] LABS: Glucose, Blood 41 mg/dL (70-99)
[2025-01-26 07:23] VITALS: BP 127/68
[2025-01-26] MEDS ORDERED: Sodium Bicarb 8.4% Inj 150 MEQ in Dextrose 5% 1,000 ML IV SCH ×2 (07:35→08:00)
--- NOTE | 2025-01-26 07:55 | NUR ---
CRITICAL LAB: GLUCOSE 41. PATIENT LETHARGIC. HOSPITALIST DR BROWNE CALLED AND REPORTS GIVE ONE AMP OF DEXTROSE AND RECHECK CBG. DEXTROSE WAS NOT IN EACH OF THREE PYXIS. [facility] TO [facility] ONE WITH LOW GLUCOSE AND HAD TO WAIT. GLUCOSE DOWN TO 20 BY THE TIME SENT. RAPID CALLED AND DEXTROSE GIVEN AND RECHECKED @ 188. PATIENT NEXT HAVING CONVERSATION AND ABLE TO DRINK AND EAT. DAY SHIFT RN ASSISTED AND REST OF REPORT GIVEN.
[2025-01-26 08:26] LABS: Base Excess Venous -7.1 mmol/L; PCO2 Venous 37.5 mmHg (38-42); pH Blood Venous 7.31 (7.34-7.37)
[2025-01-26] MEDS ORDERED: Calcium Acetate 667 MG Gel Cap PO SCH (08:30)
[2025-01-26 08:47] LABS: Bun/Creatinine Ratio 22.9 (12.0-20.0); Calcium, Blood 6.6 mg/dL (8.5-10.1); Creatinine, Blood 2.62 mg/dL (0.60-1.20); Potassium, Blood 3.5 mmol/L (3.5-5.5)
[2025-01-26] MEDS ORDERED: Sodium Bicarbonate 650 MG Tab PO SCH ×2 (09:00→21:00)
--- NOTE | 2025-01-26 09:00 | NUR ---
pt was found to be unresponsive laying in bed on assesment, eyes are open but not responding to verbal or trying to get him to take a drink as his glucose was 41 early this am, night RN states he is normally a/o and follows commands well, unable to get him to drink, just letting it run out, sales assistant entertainment and media rechecked cbg and is 20, waiting on pharacy to send d50, gate services supervisor was called, as d50 not available yet, was pushed immediatley once it arrived and pt responded well, woke up and is taking oral food, lungs are clear t/o, on r/a, no cough noted, hrr, no edema noted, ppp faint, cap refill<3 sec, vs stable, afebrile, piv to rfa site is clear and patent, btx4, abd flat soft nontender, voids via chronich esquivel cath draining yellow urine, skin c/w/d, abida reardon, call light in reach.
[2025-01-26 16:28] VITALS: BP 126/69
--- NOTE | 2025-01-26 18:22 | NUR ---
pts glucose has been stable the rest of the shift, changed medications, has had 7 stools this shift. no further changes this shift. call light in reach.
[2025-01-26 19:17] VITALS: BP 114/57
--- NOTE | 2025-01-27 01:45 | NUR ---
@0145 PT REFUSED TO CONTINUE SODIUM BICARB INFUSION @100MLS/HR. PER PT STATEMENT"TURN THAT SHIT OFF IT'S MAKING SO MUCH NOISE!, I DON'T WANT IT!". CHARGE NURSE SHLOMO NOTIFIED. DR. BROWNE NOTIFIED.
[2025-01-27] MEDS ORDERED: NS 250 ML IV PRN (02:20)
[2025-01-27 03:49] VITALS: BP 124/67
--- NOTE | 2025-01-27 04:24 | NUR ---
THIS FORGING DIE SINKER CONTACTED ON-CALL HOSPITALIST DR. BROWNE D/T PT INCONTINENT OF STOOL X3-4 WITH XXL PASTY, LOOSE STOOLS. PER CONVERSTATION, WILL ORDER GI PANEL AND ONE TIME DOSE OF IMMODIUM PO. WILL PUT IN THE ORDERS.
--- NOTE | 2025-01-27 04:26 | NUR ---
SHIFT SUMMARY PT'S HS BG 149. PT REFUSED TO CONTINUE SODIUM BICARB INFUSION. NOTIFIED. NO NEW ORDERS AT THAT TIME. PT HAD 3-4 XXL PASTY LOOSE STOOLS, THIS SAND CONDITIONER CONTACTED DR. BROWNE. HE WILL PUT IN ORDERS FOR GI PANEL AND IMMODIUM ONE TIME DOSE. PT IS A/O X3-4, SOMEWHAT COOPERATIVE WITH CARE AND RUDE TO THE STAFF ASSISTING HIM. IV ABX INFUSED ORDERED. CHRONIC QUIGLEY DRAINING TO GRAVITY, YELLOW COLOR URINE. RIGHT ARM DRESSING CHANGED DURING THIS SHIFT. SUTURES INTACT, DRESSING C/D/I. PRN TRAMADOL FOR C/O CHRONIC GENERALIZED PAIN. BED AT THE LOWEST POSITION, CALL LIGHT W/I REACH. PT IS ABLE TO MAKE HIS NEEDS KNOWN.
[2025-01-27] MEDS ORDERED: Loperamide HCl 2 MG Cap PO ONE ×2 (05:00→17:55)
--- NOTE | 2025-01-27 05:41 | NUR ---
STOOL SAMPLE SENT TO THE LAB @0540 THIS MORNING FOR GI PANEL.
[2025-01-27 06:03] LABS: Hematocrit 21.3 % (37.0-53.0); Hemoglobin 6.9 g/dL (13.5-17.5)
--- NOTE | 2025-01-27 06:20 | NUR ---
PT'S HGB 6.9 THIS MORNING, WAS 8.5 ON 01/26/25 YESTERDAY. @[address] BROWNE, ON-CALL HOSPITALIST. AWAITING FOR A CALL BACK. SITE COORDINATOR NOTIFIED.
[2025-01-27 06:24] LABS: Albumin, Blood 1.6 g/dL (3.4-5.0); Anion Gap 12 mmol/L (3-11); Blood Urea Nitrogen 60 mg/dL (8-24); Bun/Creatinine Ratio 24.7 (12.0-20.0); CO2, Blood 20 mmol/L (21-32); Calcium, Blood 6.6 mg/dL (8.5-10.1); Chloride, Blood 109 mmol/L (98-108); Creatinine, Blood 2.43 mg/dL (0.60-1.20); Glomerular Filtration Rate 29 (60-); Glucose, Blood 153 mg/dL (70-99); Magnesium, Blood 1.7 mg/dL (1.6-2.4); Phosphorus, Blood 6.4 mg/dL (2.5-4.9); Potassium, Blood 4.2 mmol/L (3.5-5.5); Sodium, Blood 137 mmol/L (136-145)
[2025-01-27 08:11] VITALS: BP 121/71
--- NOTE | 2025-01-27 08:40 | NUR ---
ASSUMPTION OF CARE: ASSUMED CARE OF PATIENT. AWAKE DURING SHIFT CHANGE REPORT REQUESTING COFFEE AND BOWEL CLEANUP. LYING SUPINE IN BED. THIS RN AND SLEEP MEDICINE PHYSICIAN CLEANED UP LIQUID STOOL x3. PATIENT REQUESTING SECOND DOSE OF LOPERAMIDE. WILL CALL PROVIDER. BREATHING EVEN AND UNLABORED ON ROOM AIR. QUIGLEY PATENT AND DRAINING YELLOW URINE TO GRAVITY. BED IN LOWEST POSITION. CALL LIGHT WITHIN REACH. NO ACUTE NEEDS.
[2025-01-27 09:45] LABS: C DIFFICILE DNA NEGATIVE (Negative)
[2025-01-27 11:21] LABS: Campylobacter Sp Not Detected (NOT DETECT)
[2025-01-27 11:22] LABS: Adenovirus F 40/41 Not Detected (NOT DETECT); Astrovirus Not Detected (NOT DETECT); Cryptosporidium Not Detected (NOT DETECT); Cyclospora Cayetanensis Not Detected (NOT DETECT); E. Coli O157 Not Detected (NOT DETECT); Entamoeba Histolytica Not Detected (NOT DETECT); Enteroaggregative E. coli-EAEC Not Detected (NOT DETECT); Enteropathogenic E. coli-EPEC Not Detected (NOT DETECT); Enterotoxigenic E. coli-ETEC Not Detected (NOT DETECT); Giardia Lamblia Not Detected (NOT DETECT); Norovirus GI/GII Not Detected (NOT DETECT); Plesiomonas Shigelloides Not Detected (NOT DETECT); Rotavirus A Not Detected (NOT DETECT); Salmonella Sp Not Detected (NOT DETECT); Sapovirus Not Detected (NOT DETECT); Shiga Toxin-prod E. coli-STEC Not Detected (NOT DETECT); Shigella/Enteroin E. coli-EIEC Not Detected (NOT DETECT); Vibrio Cholerae Not Detected (NOT DETECT); Vibrio Sp Not Detected (NOT DETECT); Yersinia Enterocolitica Not Detected (NOT DETECT)
[2025-01-27 12:08] VITALS: BP 129/73
[2025-01-27 17:19] VITALS: BP 131/70
[2025-01-27] MEDS ORDERED: Loperamide HCl 2 MG Cap PO PRN (17:55)
[2025-01-27] MEDS ORDERED: Sodium Bicarb 8.4% Inj 150 MEQ in Dextrose 5% 1,000 ML IV SCH (20:00)
[2025-01-27 20:27] VITALS: BP 132/84
--- NOTE | 2025-01-28 03:31 | NUR ---
SHIFT SUMMARY PT IS A/OX3-4, SOMEWHAT COOPERATIVE WITH CARE. PT REFUSED HS SCHEDULED METOPROLOL PO. PT CONTINUES TO HAVE MULTIPLE LOOSE, PASTY STOOLS. IMMODIUM PO PRN ADMINISTERED ORDERED. PT IS INCONTINENT OF BOWEL. CHRONIC QUIGLEY DRAINING TO GRAVITY. HS B. BICARB RESTARTED AND INFUSING ORDERED. BED AT THE LOWEST POSITION, PT SLEEPS WITH HOB ELEVATED. CALL LIGHT WITHIN REACH. PT REFUSED DRESSING CHANGE AT HS FOR RIGHT SHOULDER WOUND.
[2025-01-28 04:39] VITALS: BP 122/52
--- NOTE | 2025-01-28 05:37 | NUR ---
Sodium bicarb infusion paused per pt request at 0535. This press writer offerred to insert a new iv, per pt statement "it's not the iv, it's the stuff that goes in it". Will notify incoming shift Rn. Pt allowed the sodium bicarb infusion from hs until 0535. No redness, swelling, leaking etc. noted on the iv site.
--- NOTE | 2025-01-28 06:24 | NUR ---
Sodium bicarb infusion paused d/t swelling on left arm that was noted after pt requested the infusion to be stopped at 0530. This engineering technical writer offered to attempt to put in a new iv, pt declined. Will report to incoming shift nurse.
[2025-01-28 06:38] LABS: BASOPHILS ABSOLUTE AUTO 0.04 K/mm3 (0.00-0.23); BASOPHILS PERCENT AUTO 1 % (0-2); EOSINOPHILS ABSOLUTE AUTO 0.08 K/mm3 (0.00-0.68); EOSINOPHILS PERCENT AUTO 1 % (0-6); Hematocrit 24.4 % (37.0-53.0); Hemoglobin 7.8 g/dL (13.5-17.5); IMMATURE GRAN ABSOLUTE AUTO 0.05 K/mm3 (0.00-0.10); IMMATURE GRAN PERCENT AUTO 1 % (0-1); LYMPHOCYTES ABSOLUTE AUTO 1.05 K/mm3 (0.84-5.20); LYMPHOCYTES PERCENT AUTO 13 % (21-46); MONOCYTES ABSOLUTE AUTO 0.41 K/mm3 (0.16-1.47); MONOCYTES PERCENT AUTO 5 % (4-13); Mean Corpuscular HGB 29.3 pg (26.0-34.0); Mean Corpuscular Volume 92 fL (80-100); Mean Platelet Volume 9.6 fL (9.1-12.4); NEUTROPHILS ABSOLUTE AUTO 6.38 K/mm3 (1.96-9.15); NEUTROPHILS PERCENT AUTO 80 % (41-73); Platelet Count 143 K/mm3 (150-400); RDW Coefficient Variation 16.7 % (11.7-14.2); RDW Standard Deviation 55.5 fL (35.1-46.3); Red Blood Cell Count 2.66 M/mm3 (4.30-5.90); White Blood Cell Count 8.01 K/mm3 (4.00-11.30)
[2025-01-28 07:03] LABS: Magnesium, Blood 1.6 mg/dL (1.6-2.4)
[2025-01-28 07:13] LABS: Albumin, Blood 1.7 g/dL (3.4-5.0); Albumin/Globulin Ratio 0.5 (0.8-1.8); Bilirubin, Total 0.2 mg/dL (0.1-1.0); Bun/Creatinine Ratio 23.9 (12.0-20.0); Calcium, Blood 6.7 mg/dL (8.5-10.1); Creatinine, Blood 2.3 mg/dL (0.60-1.20); Globulin, Blood 3.7 g/dL (2.2-4.0); Phosphorus, Blood 5.5 mg/dL (2.5-4.9); Potassium, Blood 4.8 mmol/L (3.5-5.5); Total Protein, Blood 5.4 g/dL (6.4-8.2)
--- NOTE | 2025-01-28 07:44 | NUR ---
ASSUMPTION OF CARE: ASSUMED CARE OF PATIENT FOR SECOND DAY IN A ROW. AWAKE DURING SHIFT CHANGE REPORT. SITTING UP IN BED c HOB ELEVATED. BREATHING EVEN AND UNLABORED ON ROOM AIR. QUIGLEY PATENT AND DRAINING TO GRAVITY. BED IN LOWEST POSITION. CALL LIGHT WITHIN REACH. NO ACUTE NEEDS.
[2025-01-28 08:05] VITALS: BP 113/42
--- NOTE | 2025-01-28 08:17 | NUR ---
CALL TO DR ALEKSANDR larios LAB RESULTS; T.O. TO INCREASE BICARB PILL TO TID FROM BID. ORDER READ BACK AND CONFIRMED.
[2025-01-28] MEDS ORDERED: Sodium Bicarbonate 650 MG Tab PO SCH (09:00)
[2025-01-28] MEDS ORDERED: Loratadine 10 MG Tab PO SCH (11:00)
[2025-01-28] MEDS ORDERED: Insulin Human Lispro 100 Units/ML 3ML Syringe SC SCH (16:30)
[2025-01-28 16:56] VITALS: BP 130/50
--- NOTE | 2025-01-28 18:46 | NUR ---
UNABLE TO ESTABLISH IV ACCESS SECONDARY TO IV EXTRAVASION OF LUE AND WOUND OF RUE. CALL TO DR MOHAMUD: T.O. FOR BACTRIM DS BID UNTIL ABLE TO ESTABLISH IV ACCESS AND RESUME IV ABx.
--- NOTE | 2025-01-28 19:30 | NUR ---
END OF SHIFT SUMMARY: IN CONTACT ISOLATION FOR MRSA IN WOUNDS. A&Ox4. PLEASANT AND COOPERATIVE WITH CARE. CALLS APPROPRIATELY AND IS ABLE TO ADVOCATE NEEDS EFFECTIVELY. INCONTINENT OF BOWEL AND BLADDER; LBM TODAY. STOOLS BEGINNING TO FORM. CHRONIC QUIGLEY IN PLACE SECONDARY TO OBSTRUCTION; LAST CHANGED BY HOME HEALTH NURSE PRIOR TO ADMIT. CHAIRFAST c WHEELCHAIR USE. MEDS WHOLE c FLUIDS. NO TELE. ROOM AIR. RIGHT ARM c WOUND CARE IN PLACE. LEFT ARM BELOW ELBOW SWOLLEN, RED AND BRUISED AFTER POSSIBLE EXTRAVASION OF IV. US OBTAINED THIS EVENING JUST BEFORE SHIFT CHANGE AND WAS POSITIVE FOR SUPERFICIAL THROMBUS IN CEPHALIC VEIN. UNABLE TO OBTAIN IV ACCESS; CALL TO DR. MOHAMUD WHO ORDERED TO HOLD ABx AT THIS TIME AND START BACTRIM DS BID UNTIL IV ACCESS ABLE TO BE ESTABLISHED AGAIN. INITIALLY HAD PICC LINE ORDERED FOR ABx x2 WEEKS, BUT DR MOHAMUD STATED TO DELAY INSERTION OF PICC UNTIL VERIFIED. C/O LEFT EAR PAIN; RECEIVED ORDER FOR CLARITIN. PT STATES PAIN GETTING WORSE AND NO RELIEF FROM ANTIHISTAMINE; PRN TRAMADOL ADMINISTERED. HGB STABLE. DR. BRANDON INCREASED HCO3 TAB TO TID FROM BID. SLIDING SCALE ADDED BACK TO REGIMEN THIS EVENING. BILATERAL HEEL PROTECTORS IN PLACE. BED IN LOWEST POSITION, CALL LIGHT WITHIN REACH, ALL NEEDS MET. REPORT TO ONCOMING NURSE.
[2025-01-28 19:36] VITALS: BP 136/51
[2025-01-28] MEDS ORDERED: Trimethoprim/Sulfamethoxazole DS Tab PO SCH (21:00)
[2025-01-28] MEDS ORDERED: Insulin Glargine-Yfgn 100 Unit/mL 3 ML SYR SC SCH (21:00)
[2025-01-29 03:48] VITALS: BP 130/69
[2025-01-29 06:04] LABS: Hematocrit 24.4 % (37.0-53.0); Hemoglobin 7.8 g/dL (13.5-17.5); Mean Corpuscular HGB 28.9 pg (26.0-34.0); Mean Corpuscular Volume 90 fL (80-100); Mean Platelet Volume 9.6 fL (9.1-12.4); Platelet Count 145 K/mm3 (150-400); RDW Coefficient Variation 16.7 % (11.7-14.2); RDW Standard Deviation 53.6 fL (35.1-46.3); White Blood Cell Count 9.53 K/mm3 (4.00-11.30)
--- NOTE | 2025-01-29 06:07 | NUR ---
PT A&OX4, IRRITABLE AND SOMEHWAT COOPERATIVE. PT HAS NOTABLE WEAKNESS IN ALL EXTREMETIES. BILATERAL BREATH SOUNDS ARE CLEAR, EDEMA IN BLE AND BUE PT HAS CATHETE RIN PLACE DRAINING CLEAR YELLOW URINE. PT REFUSED BEDTIME INSULIN HE SAID IT WOULD DROP HIS BLOOD SUGAR TOO LOW. HE HAS BEEN VERY DEMANDING WANTING SNACKS AND RUDE TO STAFF. HE ASKED IF WE FOUND BUGS IN HIS BED AND HE HAS BEEN PICKING AT HIS SKIN. AT BEGINNING OF SHIFT IF WAS OUT AND TIP WAS INTACT. PT REPORTED HE DID NOT KNOW HOW THE IV CAME OUT. PT C/O PAIN IN LEFT EAR. EAR CANAL WAS RED, DUE TO PAIN I WAS UNABEL TO VISUALIZE EAR DRUM. PAIN MEDI GIVEN RX.
[2025-01-29 06:27] LABS: Albumin, Blood 1.8 g/dL (3.4-5.0); Anion Gap 12 mmol/L (3-11); Blood Urea Nitrogen 59 mg/dL (8-24); CO2, Blood 19 mmol/L (21-32); Calcium, Blood 6.9 mg/dL (8.5-10.1); Chloride, Blood 106 mmol/L (98-108); Creatinine, Blood 2.57 mg/dL (0.60-1.20); Glomerular Filtration Rate 27 (60-); Glucose, Blood 255 mg/dL (70-99); Magnesium, Blood 1.6 mg/dL (1.6-2.4); Phosphorus, Blood 6.6 mg/dL (2.5-4.9); Sodium, Blood 132 mmol/L (136-145)
--- NOTE | 2025-01-29 07:27 | NUR ---
CALLED INFECTION PREVENTION- PER ALEXANDREA PT WILL BE REMOVED FROM ISO. Hx MRSA FROM 2022, ABCESS CULTURES ARE NOT MRSA, JUST STAPH AURIOUS.
[2025-01-29 07:55] VITALS: BP 132/41
[2025-01-29] MEDS ORDERED: CeFAZolin Sodium 1,000 MG in NS 50 ML IV ONE (13:35)
--- NOTE | 2025-01-29 13:42 | NUR ---
POWERGLIDE INSERTED TO FIDE, PATIENT TOLERATED WELL. 20G 10CM. RN NOTIFIED.
[2025-01-29] MEDS ORDERED: Calcium Acetat667 MG PO (13:47)
[2025-01-29] MEDS ORDERED: HUMALOG KW100 UNIT/1 SC (13:49)
[2025-01-29] MEDS ORDERED: BUME1 PO (13:50)
[2025-01-29] MEDS ORDERED: CEFAZOLIN SODIUM1 G1 IV (13:54)
--- NOTE | 2025-01-29 17:08 | NUR ---
DISCHARGE NOTE- PT WAS DISCHARGED TO [facility] FOR 12 DAYS OF IV ABX INFUSIONS. CALLED REPORT TO [facility] RN. PT WAS TAKEN VIA WC TRANSPORT TO THE FACILITY ON ROOM AIR NO S&S OF DISTRESS NOTED AT THE TIME OF DISCHARGE.
== END 2025-01-29 15:42 | DRG 571 ==
LOC: ER 11:29 → MEDS 11:30 → ENPENDDIS 01-24 16:30 → MEDS 01-25 15:29
PROVIDERS: Internal Medicine Nephrology; Student in an Organized Health Care Education/Training Program; ADMIT Internal Medicine
PROC: 30243N1 Transfusion of Nonautologous Red Blood Cells into Central Vein, Percutaneous Approach (ICD-10-PCS; principal; 2025-01-25)
PROC: 0JBD0ZZ Excision of Right Upper Arm Subcutaneous Tissue and Fascia, Open Approach (ICD-10-PCS; 2025-01-25)
PROC: 0J9D0ZZ Drainage of Right Upper Arm Subcutaneous Tissue and Fascia, Open Approach (ICD-10-PCS; 2025-01-25)
DX: L02.413 Cutaneous abscess of right upper limb (principal); N17.9 Acute kidney failure, unspecified; I12.9 Hypertensive chronic kidney disease with stage 1 through stage 4 chronic kidney disease, or unspecified chronic kidney disease; D64.9 Anemia, unspecified; E87.70 Fluid overload, unspecified; E11.22 Type 2 diabetes mellitus with diabetic chronic kidney disease; E11.42 Type 2 diabetes mellitus with diabetic polyneuropathy; E03.9 Hypothyroidism, unspecified; M54.50 Low back pain, unspecified; Z96.659 Presence of unspecified artificial knee joint; E86.9 Volume depletion, unspecified; E87.6 Hypokalemia; E78.5 Hyperlipidemia, unspecified; F32.A Depression, unspecified; J44.9 Chronic obstructive pulmonary disease, unspecified; I87.8 Other specified disorders of veins; N40.0 Benign prostatic hyperplasia without lower urinary tract symptoms; F17.210 Nicotine dependence, cigarettes, uncomplicated; G89.29 Other chronic pain; E83.42 Hypomagnesemia; B95.61 Methicillin susceptible Staphylococcus aureus infection as the cause of diseases classified elsewhere; E11.649 Type 2 diabetes mellitus with hypoglycemia without coma; M79.89 Other specified soft tissue disorders; Z98.890 Other specified postprocedural states; Z79.4 Long term (current) use of insulin; Z88.0 Allergy status to penicillin; Z46.6 Encounter for fitting and adjustment of urinary device; Z90.49 Acquired absence of other specified parts of digestive tract; Z88.8 Allergy status to other drugs, medicaments and biological substances
CPT/HCPCS: 10061; 36415; 36430; 73030; 73201; 80048; 80053; 80069; 82728; 82803; 82947; 83540; 83550; 83735; 84100; 85014; 85018; 85025; 85027; 85610; 85651; 85730; 86140; 86850; 86900; 86901; 86923; 87070; 87075; 87077; 87147; 87186; 87205; 87493; 87507; 93005; 93010; 93971; 94760; 94762; 96365; 96366; 96367; 96368; 96372; 96375; 96376; 99284-25; A9270; C1751; G0378; J0330; J0690; J0881; J1171; J1750; J1815; J2704; J2916; J3010; J3370; J3475; J3480; J7040; J7050; J7070; J7120; P9016; Q9967

== ENCOUNTER 2025-02-28 11:15 | Emergency (ER) | payer OTHER ==
[~2025-02-28] VITALS: Ht 182.9 cm; Wt 90.7 kg
[~2025-02-28 11:15] MED LIST changes: +BASAGLAR K100 UNIT/6; +BUME1 PO; +BUME2 PO; +CEFAZOLIN SODIUM1 G1 IV; +CENTRUM SILVER1 EAC2 PO; +CEPH500 PO; +CLOBETTC TOP; +Calcium Acetat667 MG PO; +ESCI10 PO; +LACT PO; +LEVOTHYROXINE25 MC9 PO; +LORA10ER PO; +MAGNESIUM OXID500 MG PO; +METO100ER PO; +NARCAN4 M1; +PROCRIT40000 UNIT; +TAMSULOSIN HCL0.4 M1 PO
[2025-02-28 11:28] VITALS: BP 130/67
== END 2025-02-28 12:15 | disposition home or self-care (01) ==
LOC: ER 11:15
DX: T83.83XA Hemorrhage due to genitourinary prosthetic devices, implants and grafts, initial encounter (principal); I12.9 Hypertensive chronic kidney disease with stage 1 through stage 4 chronic kidney disease, or unspecified chronic kidney disease; E11.22 Type 2 diabetes mellitus with diabetic chronic kidney disease; N18.4 Chronic kidney disease, stage 4 (severe); J44.9 Chronic obstructive pulmonary disease, unspecified; E78.5 Hyperlipidemia, unspecified; Z88.0 Allergy status to penicillin; Z79.899 Other long term (current) drug therapy; Z79.84 Long term (current) use of oral hypoglycemic drugs; Z79.890 Hormone replacement therapy; F17.210 Nicotine dependence, cigarettes, uncomplicated
CPT/HCPCS: 99283

== ENCOUNTER 2025-04-17 14:07 | Inpatient (IN) | payer OTHER ==
[~2025-04-17] VITALS: Ht 180.3 cm; Wt 90.0 kg
[~2025-04-17 14:07] MED LIST changes: -BASAGLAR K100 UNIT/6; -BUME2 PO; +INSULANPEN SC; -METO100ER PO; +METO25ER PO
[2025-04-17] MEDS ORDERED: CETI5 PO (15:24)
[2025-04-17] MEDS ORDERED: FLONASE ALLERG9.9 M2 NS (15:26)
[2025-04-17] MEDS ORDERED: NYSTOP15 GM TOP (15:26)
[2025-04-17 15:42] LABS: BASOPHILS ABSOLUTE AUTO 0.02 K/mm3 (0.00-0.23); BASOPHILS PERCENT AUTO 1 % (0-2); EOSINOPHILS ABSOLUTE AUTO 0.06 K/mm3 (0.00-0.68); EOSINOPHILS PERCENT AUTO 2 % (0-6); Hematocrit 19.9 % (37.0-53.0); Hemoglobin 6.5 g/dL (13.5-17.5); IMMATURE GRAN ABSOLUTE AUTO 0.01 K/mm3 (0.00-0.10); IMMATURE GRAN PERCENT AUTO 0 % (0-1); LYMPHOCYTES ABSOLUTE AUTO 0.42 K/mm3 (0.84-5.20); LYMPHOCYTES PERCENT AUTO 11 % (21-46); MONOCYTES ABSOLUTE AUTO 0.13 K/mm3 (0.16-1.47); MONOCYTES PERCENT AUTO 3 % (4-13); Mean Corpuscular HGB Conc 32.7 g/dL (31.5-36.5); Mean Corpuscular Volume 89 fL (80-100); NEUTROPHILS ABSOLUTE AUTO 3.17 K/mm3 (1.96-9.15); NEUTROPHILS PERCENT AUTO 83 % (41-73); NRBC ABSOLUTE 0.00 K/mm3 (0.00-0.02); NRBC Auto 0.0 /100 WBC (0.0-0.2); Platelet Count 129 K/mm3 (150-400); RDW Coefficient Variation 14.8 % (11.7-14.2); RDW Standard Deviation 47.8 fL (35.1-46.3)
[2025-04-17 15:55] LABS: Magnesium, Blood 1.5 mg/dL (1.6-2.4)
[2025-04-17 15:56] LABS: Anion Gap 14.0 mmol/L (3-11); Blood Urea Nitrogen 61.0 mg/dL (8-24); CO2, Blood 18.0 mmol/L (21-32); Calcium, Blood 7.2 mg/dL (8.5-10.1); Chloride, Blood 109.0 mmol/L (98-108); Creatinine, Blood 3.26 mg/dL (0.60-1.20); Glucose, Blood 119.0 mg/dL (70-99); Potassium, Blood 4.6 mmol/L (3.5-5.5); Sodium, Blood 136.0 mmol/L (136-145)
[2025-04-17] MEDS ORDERED: CefTRIAXone Sodium 1,000 MG in NS 100 ML IV ONE (16:55)
[2025-04-17] MEDS ORDERED: Magnesium Sulf 2 GM/Water 50ML 50 ML IV ONE (17:30)
[2025-04-17] MEDS ORDERED: Ondansetron HCl 2 MG / ML 2ML Vial IV PRN (17:30)
[2025-04-17 17:52] LABS: Ferritin, Serum 47.0 ng/mL (26-388); Total Iron Binding Capacity 185.0 ug/dL (250-450)
[2025-04-17] MEDS ORDERED: Insulin Human Lispro 100 Units/ML 3ML Syringe SC SCH (18:00)
[2025-04-17] MEDS ORDERED: Ipratropium/Albuterol SulF 2.5-0.5MG/3 ML Amp INH SCH (18:40)
[2025-04-17] MEDS ORDERED: Albuterol 2.5 MG/3 ML VIAL INH PRN (18:40)
[2025-04-17] MEDS ORDERED: NS 1,000 ML IV ONE (19:59)
[2025-04-17] MEDS ORDERED: Darbepoetin (Pharmacy Consult) SC PRN (21:55)
[2025-04-17 22:00] VITALS: BP 128/61
[2025-04-17] MEDS ORDERED: Sodium Bicarb 8.4% Inj 100 MEQ in Sodium Chloride 0.45% 1,000 ML IV SCH (22:00)
[2025-04-17] MEDS ORDERED: FLUTICASONE FU50 MCG INH (22:57)
[2025-04-17] MEDS ORDERED: LEVOTHYROXINE200 MCG PO (22:59)
[2025-04-17 23:00] VITALS: BP 126/70
[2025-04-17 23:10] VITALS: BP 125/65
[2025-04-17 23:20] LABS: pH Blood Venous 7.35 (7.34-7.37)
[2025-04-17 23:22] LABS: Hematocrit 23.1 % (37.0-53.0); Hemoglobin 7.3 g/dL (13.5-17.5)
[2025-04-18] VITALS (10 sets, daily range): BP systolic 115–136; BP diastolic 63–70
--- NOTE | 2025-04-18 00:43 | NUR ---
ADMIT NOTE REPORT RECEIVED BY THIS RN FROM PROGRAM ATTENDANT GALE @ 2011 PT ARRIVED VIA BED AND WAS SLID OVER TO PCU BED BY MEDICAL STAFF @ APPROX 2040. BLOOD INFUSING UPON ARRIVAL. BRANDON ROUNDED ON PT @ APPROX 2200/ NEW ORDERS PLACED PT IS A&O X4, ABLE TO MAKE NEEDS KNOWN, MOVING ALL EXTREMITIES WITH PURPOSE, REPOSITIONING PATIENT ALLOWS, PT REPORTS BEING BED BOUND AT BASELINE AND USES A MOBILITY SCOOTER AT THE SD. CONTINUOUS SPO2, SPO2 GREATER 94% ON RA, LUNGS SOUND CLEAR T/O WITH DIMINISHED BASES, NO SIGNS OF RESPIRATORY DISTRESS NOTED T/O THIS SHIFT, PT DENIES SOB. CONTINUOUS TELE MONITORING, SINUS 90-100 S, PULSES PRESENT T/O, PT DENIES CHEST P/P T/O THIS SHIFT, BP STABLE WITH MAP GREATER THAN 65. BOWEL TONES PRESENT IN ALL 4Q, PT DENIES FEELINGS OF NAUSEA, OR CONSTIPATION. CHRONIC QUIGLEY CHANGED UPON ARRIVAL TO PCU, QUIGLEY IS PATENT/SECURE/DRAINING TO GRAVITY, URINE YELLOW IN COLOR WITH SEDIMENT. BED LOWEST POSITION, CALL LIGHT IN REACH, AWAITING TO GIVE REPORT TO ONCOMING RN.
[2025-04-18 00:47] LABS: Source, Urine Foley catheter
[2025-04-18 00:52] LABS: Bilirubin, Urine Neg (Neg); Color, Urine Yellow (P-Yellow); Glucose Qualitative, Urine 1+ (Neg); Ketones, Urine Neg (Neg); Leukocyte Esterase, Urine 3+ (Neg); Protein, Urine 3+ (Neg); Specific Gravity, Urine 1.020 (1.003-1.022); Urobilinogen, Urine NORM (Normal)
[2025-04-18 00:56] LABS: Red Blood Cells, Urine 0-2 /hpf (0-2); White Blood Cells, Urine TNTC /hpf (0-5)
[2025-04-18] MEDS ORDERED: Darbepoetin Alfa In Albumn Sol 40 MCG/0.4 ML SC ONE (02:00)
[2025-04-18 03:27] LABS: U Amphetamine Screen Not Detected; U Barbituate Screen Not Detected; U Benzodiazapine Screen Not Detected; U Buprenorphine Screen Not Detected; U Cannabinoids Screen Not Detected; U Cocaine Screen Not Detected; U Methadone Screen Not Detected; U Methamphetamine Screen Not Detected; U Opiates Screen Not Detected; U Oxycodone Screen Not Detected; U Phencyclidine Screen Not Detected
--- NOTE | 2025-04-18 06:17 | NUR ---
SHIFT SUMMARRY NO ACUTE CHANGED FROM THIS RN'S PREVIOUS NOTE DR. BRANDON ROUNDED THIS AM @ APPROX 0550, REQUESTING TO BE CALLED WITH LABS WHEN RESULTED. CALL LIGHT IN REACH, BED LOWEST POSITION.
[2025-04-18 07:00] LABS: Hematocrit 22.9 % (37.0-53.0); Hemoglobin 7.2 g/dL (13.5-17.5); Mean Corpuscular HGB Conc 31.4 g/dL (31.5-36.5); Mean Corpuscular Volume 88 fL (80-100); NRBC ABSOLUTE 0.00 K/mm3 (0.00-0.02); NRBC Auto 0.0 /100 WBC (0.0-0.2); Platelet Count 112 K/mm3 (150-400); RDW Coefficient Variation 14.6 % (11.7-14.2); RDW Standard Deviation 47.4 fL (35.1-46.3)
[2025-04-18 07:32] LABS: Magnesium, Blood 1.8 mg/dL (1.6-2.4)
[2025-04-18 07:37] LABS: Albumin, Blood 2.2 g/dL (3.4-5.0); Anion Gap 13 mmol/L (3-11); Blood Urea Nitrogen 72 mg/dL (8-24); CO2, Blood 16 mmol/L (21-32); Calcium, Blood 7.3 mg/dL (8.5-10.1); Chloride, Blood 108 mmol/L (98-108); Creatinine, Blood 3.44 mg/dL (0.60-1.20); Glucose, Blood 315 mg/dL (70-99); Phosphorus, Blood 9.2 mg/dL (2.5-4.9); Potassium, Blood 4.0 mmol/L (3.5-5.5); Sodium, Blood 133 mmol/L (136-145)
[2025-04-18 07:50] LABS: CHOL/HDL RATIO 2.6; Cholesterol 98 mg/dL (50-200); HDL Cholesterol 38 mg/dL (>39); LDL/HDL RATIO 1.2; Low Density Lipoprotein Chol 47 mg/dL (0-110); Triglycerides 64 mg/dL (30-160); Very Low Density Lipoprot Chol 12 mg/dL (6-32)
[2025-04-18] MEDS ORDERED: Sodium Bicarb 8.4% Inj 100 MEQ in Sodium Chloride 0.45% 1,000 ML IV SCH (08:50)
[2025-04-18] MEDS ORDERED: CefTRIAXone Sodium 1,000 MG in NS 100 ML IV SCH (09:00)
[2025-04-18] MEDS ORDERED: Lactobacil 2-S.Thermo-Bifido 1 1 Cap PO SCH (09:00)
[2025-04-18] MEDS ORDERED: Sod Ferric Gluc Complx/Sucrose 125 MG in NS 100 ML IV SCH (09:00)
[2025-04-18] MEDS ORDERED: Insulin Human Lispro 100 Units/ML 3ML Syringe SC ONE (10:10)
[2025-04-18] MEDS ORDERED: Insulin Human Lispro 100 Units/ML 3ML Syringe SC SCH ×2 (11:30)
[2025-04-18] MEDS ORDERED: Fluticasone 0.05% Nasal Spray PRN (11:50)
--- NOTE | 2025-04-18 14:30 | NUR ---
UPDATE DR CORREA AT BEDSIDE AT 1400 TO PERFORM THORA. 1250 ML OF FLUID REMOVED, FLUID SENT TO LAB. PATIENT TOLERATED PROCEDURE WELL. PATIENT LAYING IN BED, CALL LIGHT WITHIN REACH.
[2025-04-18 14:57] LABS: Thyroid Stimulating Hormone 24.100 uIU/mL (0.360-4.800)
[2025-04-18 14:59] LABS: Lactate Dehydrogenase (Ld),Bld 220 U/L (100-240)
--- NOTE | 2025-04-18 15:11 | NUR ---
UPDATE GAVE CAREGIVER UPDATE, INFORMATION PROVIDED ON PATIENT STATUS, CAREGIVER WILL CALL TOMORROW WITH UPDATE. WOULD LIKE TO BE NOTIFIED PRIOR TO PATIENT DISCHARGE TO ARRANGE TRANSPORT, CALL [phone].
[2025-04-18 16:51] LABS: Hematocrit 18.5 % (37.0-53.0); Hemoglobin 6.1 g/dL (13.5-17.5); IMMATURE RETIC FRACTION 22.00 % (2.3-16.0); Mean Corpuscular HGB Conc 33.0 g/dL (31.5-36.5); Mean Corpuscular Volume 86 fL (80-100); NRBC ABSOLUTE 0.00 K/mm3 (0.00-0.02); NRBC Auto 0.0 /100 WBC (0.0-0.2); Platelet Count 105 K/mm3 (150-400); RDW Coefficient Variation 14.6 % (11.7-14.2); RDW Standard Deviation 45.7 fL (35.1-46.3); RETIC HGB EQUIVALENT 22.90 pg (28.20-36.60); RETICULOCYTE ABSOLUTE 0.0346 M/mm3 (0.0200-0.1100); RETICULOCYTE COUNT PERCENT 1.60 % (0.50-2.50)
[2025-04-18 17:05] LABS: Prothrombin Time Results 14.3 Sec (9.7-11.5)
[2025-04-18 17:17] LABS: BAND PERCENT MAN 2 % (0-8); BASOPHILS ABSOLUTE MAN 0.04 K/mm3 (0.00-0.23); BASOPHILS PERCENT MAN 1 % (0-2); EOSINOPHILS ABSOLUTE MAN 0.00 K/mm3 (0.00-0.68); EOSINOPHILS PERCENT MAN 0 % (0-6); LYMPHOCYTES ABSOLUTE MAN 0.25 K/mm3 (0.84-5.20); LYMPHOCYTES PERCENT MAN 6 % (21-46); MONOCYTES ABSOLUTE MAN 0.12 K/mm3 (0.16-1.47); MONOCYTES PERCENT MAN 3 % (4-13); NEUTROPHILS ABSOLUTE MAN 3.85 K/mm3 (1.96-9.15); SEG NEUTROPHILS PERCENT MAN 88 % (41-73)
[2025-04-18] MEDS ORDERED: NS 500 ML IV SCH (17:50)
--- NOTE | 2025-04-18 17:58 | NUR ---
SHIFT SUMMARY PATIENT IS ALERT AND ORIENTED X4, ABLE TO FOLLOW COMMANDS AND MAKE NEEDS KNOWN. VSS, SPO2 >90% ON RA, SINUS RHYTHM 60s-70s. PATIENT DENIES PRESENCE OF CHEST PAIN OR PRESSURE THROUGHOUT SHIFT. PATIENT HAS A CHRONIC QUIGLEY CATHETER IN PLACE. DENIES N/V/D, ABDOMINAL DISTENTION NOTED, PATIENT REPORTS NORMAL. THORACENTESIS PERFORMED AT BEDSIDE THIS SHIFT, 1250 ML OF FLUID REMOVED, PATIENT TOLERATED PROCEDURE WELL. HEMOGLOBIN OF 6.1, NO SIGNS AND SYMPTOMS OF BLEEDING NOTED, PHYSICIAN NOTIFIED, NEW ORDERS RECEIVED. PATIENT IS BEDBOUND AT BASELINE. SITTING UP IN BED, CALL LIGHT WITHIN REACH.
[2025-04-18] MEDS ORDERED: Iron Dextran 50 MG / ML 2ML Vial IV ONE (18:00)
[2025-04-18] MEDS ORDERED: Ipratropium/Albuterol SulF 2.5-0.5MG/3 ML Amp INH SCH (19:22)
[2025-04-18] MEDS ORDERED: Iron Dextran 975 MG in NS 250 ML IV SCH (19:30)
[2025-04-18] MEDS ORDERED: Insulin Glargine-Yfgn 100 Unit/mL 3 ML SYR SC SCH (21:00)
[2025-04-18] MEDS ORDERED: Betamethasone/Clotrimazole Crm 15 gm TOP SCH (21:00)
[2025-04-19 00:02] VITALS: BP 123/71
[2025-04-19 01:12] LABS: Hematocrit 20.2 % (37.0-53.0); Hemoglobin 6.8 g/dL (13.5-17.5)
[2025-04-19 04:11] VITALS: BP 119/56
[2025-04-19 04:43] LABS: Hematocrit 21.4 % (37.0-53.0); Hemoglobin 7.0 g/dL (13.5-17.5)
[2025-04-19 05:19] LABS: Magnesium, Blood 1.6 mg/dL (1.6-2.4)
[2025-04-19 05:32] LABS: Albumin, Blood 2.1 g/dL (3.4-5.0); Anion Gap 15 mmol/L (3-11); Blood Urea Nitrogen 74 mg/dL (8-24); CO2, Blood 19 mmol/L (21-32); Calcium, Blood 6.4 mg/dL (8.5-10.1); Chloride, Blood 107 mmol/L (98-108); Creatinine, Blood 3.28 mg/dL (0.60-1.20); Glucose, Blood 247 mg/dL (70-99); Phosphorus, Blood 8.2 mg/dL (2.5-4.9); Potassium, Blood 3.8 mmol/L (3.5-5.5); Sodium, Blood 137 mmol/L (136-145)
--- NOTE | 2025-04-19 05:44 | NUR ---
SHIFT SUMMARY THIS RN ASSUMED CARE OF PATIENT AT 1900. PT TO STAT ABDOMINAL CT AFTER SHIFT CHANGE. NO ACUTE FINDINGS NOTED; SEE REPORT. IRON INFUSION COMPLETED PER EMAR. 1U PRBC S INFUSED AFTER IRON INFUSION COMPLETED. LUNG SOUNDS REMAINED COARSE T/O THIS SHIFT. PT REMAINED ON RA WITH SPO2 >92%. BP STABLE. SR BBB IN THE 70S. AFEBRILE. DENIES CHEST PAIN/PRESSURE AND SOB AT REST. NO TACHYPNEA NOTED. 0100 HGB RECHECK AT 6.8, THIS RN CALLED MD BRANDON REGARDING HGB, ORDER TO CALL WITH MORNING CHEMISTRY WHEN RESULTED. NO OTHER ORDERS AT THAT TIME. CALLED BACK TO MD BRANDON FOR MORNING CHEMISTRY. ORDER TO DECREASE BICARB GTT TO 75MLS/HR. HGB NOW 7.0. NO OTHER NEW ORDERS. PT A&O X4. ABLE TO MAKE NEEDS KNOWN. REPOSITIONING Q2HRS. HEELS/BLE FLOATED. MEPILEX TO COCCYX. BICARB GTT INFUSING PER EMAR. QUIGLEY CATHETER PATENT AND DRAINING TO GRAVITY. BED IN LOWEST POSITION AND CALL LIGHT WITHIN REACH. THIS RN WILL REPORT TO MARIELA CASAS RN.
[2025-04-19 06:41] LABS: Albumin, Body Fluid 1.3 g/dL; Glucose, Body Fluid 272 mg/dL; Lactate Dehydrogenase, Body Fl 88 U/L; Triglycerides, Body Fluid 23 mg/dL
[2025-04-19 07:03] LABS: Automated BF WBC Count 0.188 K/mm3 (0-999)
[2025-04-19 07:15] LABS: RBC Count, Body Fluid 208 /mm3 (0-0)
[2025-04-19 07:16] LABS: Color, Body Fluid L Yellow (None-Yellow)
[2025-04-19 07:58] VITALS: BP 133/72
[2025-04-19 08:12] LABS: Lymphocytes, Fluid 66.0 % (0.0-18.0); Monocytes/Mononuclear, Fluid 12.0 % (0.0-50.0); Neutrophils, Fluid 11.0 % (0.0-25.0); Total Cell Count, Body Fluid 100
[2025-04-19] MEDS ORDERED: Cholecalciferol 1000 Unit Tablet (=25MCG) PO SCH (09:00)
[2025-04-19] MEDS ORDERED: N-Acetylcysteine 600 MG CAP PO SCH (09:00)
[2025-04-19 10:59] LABS: BASOPHILS ABSOLUTE AUTO 0.02 K/mm3 (0.00-0.23); BASOPHILS PERCENT AUTO 0 % (0-2); EOSINOPHILS ABSOLUTE AUTO 0.05 K/mm3 (0.00-0.68); EOSINOPHILS PERCENT AUTO 1 % (0-6); Hematocrit 20.8 % (37.0-53.0); Hemoglobin 7.0 g/dL (13.5-17.5); IMMATURE GRAN ABSOLUTE AUTO 0.01 K/mm3 (0.00-0.10); IMMATURE GRAN PERCENT AUTO 0 % (0-1); LYMPHOCYTES ABSOLUTE AUTO 0.60 K/mm3 (0.84-5.20); LYMPHOCYTES PERCENT AUTO 12 % (21-46); MONOCYTES ABSOLUTE AUTO 0.24 K/mm3 (0.16-1.47); MONOCYTES PERCENT AUTO 5 % (4-13); Mean Corpuscular HGB Conc 33.7 g/dL (31.5-36.5); Mean Corpuscular Volume 86 fL (80-100); NEUTROPHILS ABSOLUTE AUTO 4.16 K/mm3 (1.96-9.15); NEUTROPHILS PERCENT AUTO 82 % (41-73); NRBC ABSOLUTE 0.00 K/mm3 (0.00-0.02); NRBC Auto 0.0 /100 WBC (0.0-0.2); Platelet Count 114 K/mm3 (150-400); RDW Coefficient Variation 14.6 % (11.7-14.2); RDW Standard Deviation 45.6 fL (35.1-46.3)
[2025-04-19 11:56] VITALS: BP 127/64
[2025-04-19 13:36] LABS: Albumin, Blood 2.0 g/dL (3.4-5.0); Anion Gap 13 mmol/L (3-11); Blood Urea Nitrogen 69 mg/dL (8-24); CO2, Blood 22 mmol/L (21-32); Calcium, Blood 6.5 mg/dL (8.5-10.1); Chloride, Blood 106 mmol/L (98-108); Creatinine, Blood 3.10 mg/dL (0.60-1.20); Glucose, Blood 227 mg/dL (70-99); Phosphorus, Blood 6.9 mg/dL (2.5-4.9); Potassium, Blood 3.6 mmol/L (3.5-5.5); Sodium, Blood 137 mmol/L (136-145)
[2025-04-19 15:00] VITALS: BP 128/66
--- NOTE | 2025-04-19 18:00 | NUR ---
SHIFT SUMMARY PT A&Ox4, CALLS AND COMMUNICATES NEEDS APPROPRIATELY. BP STABLE, SINUS 70's, DENIES CP/PRESSURE. SpO2> 92% RA, REPORTS INTERMITTENT SOB. MANAGED PAIN PER EMAR. CHRONIC QUIGLEY CATH IN PLACE, PATENT, DRAINING TO GRAVITY. NO BM THIS SHIFT. BICARB gtt INFUSING AT 75mLs/hr. Q2 TURNS PROVIDED, BED/CHAIR BOUND AT BASELINE. NO S/S OF BLEEDING. NO OTHER EVENTS, WILL REPORT TO ONCOMING RN.
[2025-04-19 20:09] VITALS: BP 139/71
[2025-04-20] VITALS (16 sets, daily range): BP systolic 127–152; BP diastolic 61–79
[2025-04-20] MEDS ORDERED: Sodium Bicarb 8.4% Inj 100 MEQ in Sodium Chloride 0.45% 1,000 ML IV SCH ×2 (02:40→06:10)
[2025-04-20 03:45] LABS: BASOPHILS ABSOLUTE AUTO 0.02 K/mm3 (0.00-0.23); BASOPHILS PERCENT AUTO 0 % (0-2); EOSINOPHILS ABSOLUTE AUTO 0.11 K/mm3 (0.00-0.68); EOSINOPHILS PERCENT AUTO 2 % (0-6); Hematocrit 21.2 % (37.0-53.0); Hemoglobin 7.0 g/dL (13.5-17.5); IMMATURE GRAN ABSOLUTE AUTO 0.02 K/mm3 (0.00-0.10); IMMATURE GRAN PERCENT AUTO 0 % (0-1); LYMPHOCYTES ABSOLUTE AUTO 0.48 K/mm3 (0.84-5.20); LYMPHOCYTES PERCENT AUTO 10 % (21-46); MONOCYTES ABSOLUTE AUTO 0.27 K/mm3 (0.16-1.47); MONOCYTES PERCENT AUTO 5 % (4-13); Mean Corpuscular HGB Conc 33.0 g/dL (31.5-36.5); Mean Corpuscular Volume 86 fL (80-100); NEUTROPHILS ABSOLUTE AUTO 4.17 K/mm3 (1.96-9.15); NEUTROPHILS PERCENT AUTO 82 % (41-73); NRBC ABSOLUTE 0.00 K/mm3 (0.00-0.02); NRBC Auto 0.0 /100 WBC (0.0-0.2); Platelet Count 102 K/mm3 (150-400); RDW Coefficient Variation 14.8 % (11.7-14.2); RDW Standard Deviation 46.2 fL (35.1-46.3)
[2025-04-20 04:09] LABS: Albumin, Blood 2.0 g/dL (3.4-5.0); Anion Gap 13 mmol/L (3-11); Blood Urea Nitrogen 69 mg/dL (8-24); CO2, Blood 21 mmol/L (21-32); Calcium, Blood 6.8 mg/dL (8.5-10.1); Chloride, Blood 108 mmol/L (98-108); Creatinine, Blood 3.13 mg/dL (0.60-1.20); Glucose, Blood 173 mg/dL (70-99); Magnesium, Blood 1.5 mg/dL (1.6-2.4); Phosphorus, Blood 6.6 mg/dL (2.5-4.9); Potassium, Blood 3.9 mmol/L (3.5-5.5); Sodium, Blood 138 mmol/L (136-145)
--- NOTE | 2025-04-20 05:22 | NUR ---
SHIFT SUMMARY THIS RN ASSUMED CARE OF PATIENT AT 1900. A&O X4. ABLE TO MAKE NEEDS KNOWN. PT REMAINED ON RA WITH SPO2 >92%. BP STABLE. SR BBB IN THE 70S. AFEBRILE. DENIES CHEST PAIN/PRESSURE AND SOB AT REST. NO TACHYPNEA NOTED. HGB 7.0. NO S/S OF BLEEDING NOTED. REPOSITIONING Q2HRS. HEELS/BLE FLOATED. MEPILEX TO COCCYX. BICARB GTT INFUSING PER EMAR. QUIGLEY CATHETER PATENT AND DRAINING TO GRAVITY. BED IN LOWEST POSITION AND CALL LIGHT WITHIN REACH. THIS RN WILL REPORT TO ONCOMING DAYSHIFT RN.
[2025-04-20] MEDS ORDERED: Mag Sulfate 1 GM/D5% 100ML 100 ML IV ONE (06:00)
[2025-04-20] MEDS ORDERED: Calcium Chloride 10% 2,000 MG in NS 100 ML IV ONE ×2 (09:20→12:55)
[2025-04-20] MEDS ORDERED: Polyethylene Glycol 3350 17 gm PO SCH (11:00)
[2025-04-20 12:57] LABS: Hematocrit 20.6 % (37.0-53.0); Hemoglobin 6.8 g/dL (13.5-17.5)
[2025-04-20 13:17] LABS: Alanine Aminotransfer (ALT/SGP 14.0 U/L (12-78); Albumin, Blood 1.9 g/dL (3.4-5.0); Albumin/Globulin Ratio 0.5 (0.8-1.8); Anion Gap 11.0 mmol/L (3-11); Aspartate Aminotrans (AST/SGOT 11.0 U/L (12-37); Bilirubin, Total 0.2 mg/dL (0.1-1.0); Blood Urea Nitrogen 66.0 mg/dL (8-24); CO2, Blood 22.0 mmol/L (21-32); Calcium, Blood 7.8 mg/dL (8.5-10.1); Chloride, Blood 108.0 mmol/L (98-108); Creatinine, Blood 3.09 mg/dL (0.60-1.20); Globulin, Blood 3.5 g/dL (2.2-4.0); Glucose, Blood 219.0 mg/dL (70-99); Potassium, Blood 3.9 mmol/L (3.5-5.5); Sodium, Blood 137.0 mmol/L (136-145); Total Protein, Blood 5.4 g/dL (6.4-8.2)
--- NOTE | 2025-04-20 13:22 | NUR ---
MORNING SUMMARY RENNY AND THIS RN PRIMARY NURSES, REPORT RECIEVED FROM DARLYN RN AT 0700. THE PT IS A&OX4, BEDREST/LIFT ASSIST (THE PT'S BASELINE), AND HE CAN MAKE HIS NEEDS KNOWN. THE PT IS ON TELE SR 80'S-90'S. BP STABLE. HE DENIES ANY ANGINA OR CHEST PRESSURE. HE IS ON RA W/ SP02 >93% AND HE DOES C/O OF SOB. DR MOURA SAW THE PT THIS MORNING AND ORDERED THORACENTESIS. PROVIDER MADE AWARE OF YELLOW TINGED SCLERA WHEN IN THE ROOM. PLAN FOR THORACENTESIS W/ RADIOLOGY 1400. 1200 LABS TAKEN AND HGB/HCT HAVE DROPPED W/ HGB <7.0. DR. MOURA MADE AWARE. NO ORDERS AT THIS TIME. URINE CULTURES DISCUSSED WITH JASBIR MOURA, PO ABX STARTED. CHRONIC QUIGLEY PATENT AND DRAINING TO GRAVITY. MIRLAX GIVEN TO ENCOURAGE BOWEL MOVMENTS. SEE NOTES FOR UPDATES.
[2025-04-20] MEDS ORDERED: Furosemide 10 MG / ML 2ML Vial IV SCH (14:00)
[2025-04-20] MEDS ORDERED: Albumin (Human) 25gm/100ml 100 ML IV ONE (14:30)
[2025-04-20 16:37] LABS: Albumin, Blood 2.3 g/dL (3.4-5.0); Anion Gap 9 mmol/L (3-11); Blood Urea Nitrogen 65 mg/dL (8-24); CO2, Blood 25 mmol/L (21-32); Calcium, Blood 8.4 mg/dL (8.5-10.1); Chloride, Blood 109 mmol/L (98-108); Creatinine, Blood 2.83 mg/dL (0.60-1.20); Glucose, Blood 143 mg/dL (70-99); Phosphorus, Blood 6.4 mg/dL (2.5-4.9); Potassium, Blood 4.1 mmol/L (3.5-5.5); Sodium, Blood 139 mmol/L (136-145)
--- NOTE | 2025-04-20 18:13 | NUR ---
END OF SHIFT SUMMARY THE PT REMAINS A&OX4, CALLS APPROPRAITELY, Q2 TURN, BEDREST/LIFT ASSIST (HIS BASELINE). THE PT HAD A THORACENTESIS THIS AFTERNOON ABOUT 1400. 1.5L REMOVED. THE PT DOES STATE HE HAS NO MORE SOB SINCE RECIEVING THE THORACENTESIS. HE RECIEVED ALBUMIN AND LASIX PER EMAR AFTER RETURNING FROM THE PROCEDURE. D/T HGB <7.0, DR. MOURA ORDEREF 1 UNIT OF PRBC. THIS IS CURRENTLY INFUSING. VS Q15. ON TELE THE PT REMAINS SR 80'S W/ BBB, AND QTC 0.49. THE PT HAS ONLY C/O A FLARE IN HIS CHRONIC BACK PAIN AND HE WAS MEDICATED PER EMAR. QUIGLEY REMAINS PATENT AND DRAINING TO GRAVITY. SEE NOTES FOR ANY UPDATES.
[2025-04-20 21:19] LABS: Hematocrit 23.0 % (37.0-53.0); Hemoglobin 7.4 g/dL (13.5-17.5); Mean Corpuscular HGB Conc 32.2 g/dL (31.5-36.5); Mean Corpuscular Volume 88 fL (80-100); NRBC ABSOLUTE 0.00 K/mm3 (0.00-0.02); NRBC Auto 0.0 /100 WBC (0.0-0.2); Platelet Count 98 K/mm3 (150-400); RDW Coefficient Variation 14.5 % (11.7-14.2); RDW Standard Deviation 46.6 fL (35.1-46.3)
[2025-04-21 03:43] VITALS: BP 144/72
[2025-04-21 03:59] LABS: Hematocrit 24.1 % (37.0-53.0); Hemoglobin 7.9 g/dL (13.5-17.5)
[2025-04-21 04:20] LABS: Albumin, Blood 2.2 g/dL (3.4-5.0); Anion Gap 11 mmol/L (3-11); Blood Urea Nitrogen 60 mg/dL (8-24); CO2, Blood 23 mmol/L (21-32); Calcium, Blood 7.5 mg/dL (8.5-10.1); Chloride, Blood 109 mmol/L (98-108); Creatinine, Blood 3.05 mg/dL (0.60-1.20); Glucose, Blood 142 mg/dL (70-99); Magnesium, Blood 1.6 mg/dL (1.6-2.4); Phosphorus, Blood 5.7 mg/dL (2.5-4.9); Potassium, Blood 4.4 mmol/L (3.5-5.5); Sodium, Blood 139 mmol/L (136-145)
[2025-04-21 04:28] LABS: HAPTOGLOBIN 222 mg/dL (30-200)
--- NOTE | 2025-04-21 05:01 | NUR ---
SHIFT SUMMARY THIS RN ASSUMED CARE OF PATIENT AT 1900. A&O X4. ABLE TO MAKE NEEDS KNOWN. PT FINISHED 1UNIT PRBC S AFTER THIS RN CAME ONTO SHIFT. HGB 7.9 AT RECHECK. PT REMAINED ON RA WITH SPO2 >92%. BP STABLE. SR BBB IN THE 70S. AFEBRILE. DENIES CHEST PAIN/PRESSURE AND SOB AT REST. NO TACHYPNEA NOTED. NO S/S OF BLEEDING NOTED. REPOSITIONING Q2HRS. HEELS/BLE FLOATED. MEPILEX TO COCCYX. PT WITH LARGE FORMED BROWN BM, STOOL SAMPLE SENT FOR GUAIAC. QUIGLEY CATHETER PATENT AND DRAINING TO GRAVITY. BED IN LOWEST POSITION AND CALL LIGHT WITHIN REACH. THIS RN WILL REPORT TO ONCOMING DAYSHIFT RN.
[2025-04-21 07:00] VITALS: BP 141/80
[2025-04-21] MEDS ORDERED: Calcium Chloride 10% 2,000 MG in NS 100 ML IV ONE (08:00)
[2025-04-21 08:02] LABS: Stool Occult Blood Guaiac 1 Pos (Neg)
--- NOTE | 2025-04-21 08:05 | NUR ---
am note this rn assumed care at 0700. vital signs stable. tele sinus rhythn 80s. sppo2 >90% on room air. patient is alert and oriented x4. perrla. patient pain reassessment is at a 2 on the numberic scale for left ear. left ear has dried blood in it which this rn will update md when doing nurse physician rounding. patient deneis chest pain/pressure or shortness of breath. patient has scab on greater left toe, pcitures in chart. patient has mepilex to bottom for reddness. see photos in chart. see shift assessment for further detials.
--- NOTE | 2025-04-21 08:43 | NUR ---
in room md echeverria in room to see patient and if patient discharges this to see him wednesday at 2pm in the office
--- NOTE | 2025-04-21 10:00 | NUR ---
rounding md dunham in room and discussed patient dried blood in ear. md looked in ear and no change from previous day and no active bleeding.
[2025-04-21 11:49] VITALS: BP 139/81
[2025-04-21 12:12] LABS: Hematocrit 25.3 % (37.0-53.0); Hemoglobin 8.1 g/dL (13.5-17.5)
[2025-04-21 12:32] LABS: Albumin, Blood 2.1 g/dL (3.4-5.0); Anion Gap 11 mmol/L (3-11); Blood Urea Nitrogen 56 mg/dL (8-24); CO2, Blood 22 mmol/L (21-32); Calcium, Blood 8.1 mg/dL (8.5-10.1); Chloride, Blood 109 mmol/L (98-108); Creatinine, Blood 2.81 mg/dL (0.60-1.20); Glucose, Blood 173 mg/dL (70-99); Phosphorus, Blood 5.4 mg/dL (2.5-4.9); Potassium, Blood 4.6 mmol/L (3.5-5.5); Sodium, Blood 137 mmol/L (136-145)
[2025-04-21 16:09] VITALS: BP 146/79
--- NOTE | 2025-04-21 17:27 | NUR ---
shift summary see previous notes. vital signs remain stable. tele sinus rhythm. no acute changes this shift. patient had a bed bath and linen change. esquivel catheter is draining with gravity, yellow urine. plan remains up to date
[2025-04-21 20:08] VITALS: BP 161/84
[2025-04-21 23:11] VITALS: BP 145/70
[2025-04-22 03:52] VITALS: BP 150/83
[2025-04-22 04:25] LABS: BASOPHILS ABSOLUTE AUTO 0.03 K/mm3 (0.00-0.23); BASOPHILS PERCENT AUTO 1 % (0-2); EOSINOPHILS ABSOLUTE AUTO 0.37 K/mm3 (0.00-0.68); EOSINOPHILS PERCENT AUTO 7 % (0-6); Hematocrit 26.5 % (37.0-53.0); Hemoglobin 8.5 g/dL (13.5-17.5); IMMATURE GRAN ABSOLUTE AUTO 0.01 K/mm3 (0.00-0.10); IMMATURE GRAN PERCENT AUTO 0 % (0-1); LYMPHOCYTES ABSOLUTE AUTO 0.64 K/mm3 (0.84-5.20); LYMPHOCYTES PERCENT AUTO 12 % (21-46); MONOCYTES ABSOLUTE AUTO 0.38 K/mm3 (0.16-1.47); MONOCYTES PERCENT AUTO 7 % (4-13); Mean Corpuscular HGB Conc 32.1 g/dL (31.5-36.5); Mean Corpuscular Volume 90 fL (80-100); NEUTROPHILS ABSOLUTE AUTO 3.99 K/mm3 (1.96-9.15); NEUTROPHILS PERCENT AUTO 74 % (41-73); NRBC ABSOLUTE 0.00 K/mm3 (0.00-0.02); NRBC Auto 0.0 /100 WBC (0.0-0.2); Platelet Count 120 K/mm3 (150-400); RDW Coefficient Variation 14.6 % (11.7-14.2); RDW Standard Deviation 47.3 fL (35.1-46.3)
[2025-04-22 04:46] LABS: Albumin, Blood 2.1 g/dL (3.4-5.0); Anion Gap 12 mmol/L (3-11); Blood Urea Nitrogen 62 mg/dL (8-24); CO2, Blood 23 mmol/L (21-32); Calcium, Blood 7.6 mg/dL (8.5-10.1); Chloride, Blood 108 mmol/L (98-108); Creatinine, Blood 3.00 mg/dL (0.60-1.20); Glucose, Blood 140 mg/dL (70-99); Phosphorus, Blood 5.7 mg/dL (2.5-4.9); Potassium, Blood 4.7 mmol/L (3.5-5.5); Sodium, Blood 138 mmol/L (136-145)
--- NOTE | 2025-04-22 05:53 | NUR ---
SHIFT SUMMARY THIS RN ASSUMED CARE OF PATIENT AT 1900. A&O X4. ABLE TO MAKE NEEDS KNOWN. PT REMAINED ON RA WITH SPO2 >92%. BP STABLE. SR BBB IN THE 70S. AFEBRILE. DENIES CHEST PAIN/PRESSURE AND SOB AT REST. NO S/S OF BLEEDING NOTED. REPOSITIONING Q2HRS. HEELS/BLE FLOATED. MEPILEX TO COCCYX. QUIGLEY CATHETER PATENT AND DRAINING TO GRAVITY. BED IN LOWEST POSITION AND CALL LIGHT WITHIN REACH. THIS RN WILL REPORT TO ONCOMING DAYSHIFT RN.
[2025-04-22 08:02] VITALS: BP 126/73
[2025-04-22 11:38] VITALS: BP 126/58
--- NOTE | 2025-04-22 12:30 | NUR ---
MORNING SUMMARY THE PT IS A&OX4, CALLS APPROPRAITELY, AND MAKES HIS NEEDS KNOWN. PHYSICAL THERPAY SAW THE PT AND HE WILL REMAIN A LIFT ASSIST FOR [place]. ATTEMPTED SLIDE-BOARD WHICH IS WHAT THE PT'S USES AT BASELINE. THIS RN SPOKE TO STAFF AT THE [place], AND THE PT ALREADY HAS A HOYERLIFT SET UP IN HIS ROOM AND WOULD BE ABLE TO DO PHYSICAL THERAPY AT THE [place] (WHERE HE LIVES) WITH HOME HEALTH ORDERES. THIS WAS DISCUSSED WITH HAND TOUCH UP PAINTER AND TRACK SUBWAY REPAIR SUPERVISOR. ON TELE THE PT IS SR 70'S-80'S. BP STABLE. HE HAS BEEN ON RA W/O ANY INCREASES OF SOB. THE PT STATES HE HAS IMPROVED BREATHING SINCE HIS LAST THORACENTESIS 04/20. PLAN FOR DISCHARGE TOMORROW D/T [facility] TAKE THE PT ON THE WEEKEND. HE IS MEDICAL STATUS AT THIS TIME. BED BATH COMPLETED, REMAINS Q2 TURN, ACHS BLOOD SUGAR CHECK, AND CHRONIC QUIGLEY PATENT AND DRAINING TO GRAVITY. SEE NOTES FOR UPDATES.
[2025-04-22 15:27] VITALS: BP 147/80
--- NOTE | 2025-04-22 16:52 | NUR ---
NO CHANGES FROM MORNING SUMMARY
[2025-04-22 20:19] VITALS: BP 148/78
[2025-04-22 23:52] VITALS: BP 159/83
[2025-04-23 03:37] VITALS: BP 146/87
[2025-04-23 04:21] LABS: Hematocrit 25.6 % (37.0-53.0); Hemoglobin 8.0 g/dL (13.5-17.5)
[2025-04-23 04:35] LABS: Albumin, Blood 2.1 g/dL (3.4-5.0); Anion Gap 12 mmol/L (3-11); Blood Urea Nitrogen 64 mg/dL (8-24); CO2, Blood 22 mmol/L (21-32); Calcium, Blood 7.1 mg/dL (8.5-10.1); Chloride, Blood 108 mmol/L (98-108); Creatinine, Blood 3.00 mg/dL (0.60-1.20); Glucose, Blood 148 mg/dL (70-99); Magnesium, Blood 1.4 mg/dL (1.6-2.4); Phosphorus, Blood 5.9 mg/dL (2.5-4.9); Potassium, Blood 4.6 mmol/L (3.5-5.5); Sodium, Blood 137 mmol/L (136-145)
--- NOTE | 2025-04-23 06:12 | NUR ---
NO ACUTE EVENTS OVERNIGHT. VSS. PT COMPLAINED OF LEFT EAR PAIN DURING SHIFT. PT MEDICATED WITH PRN PAIN MEDICATION ORDERED. PT SLEPT MOST OF THE NIGHT. CHRONIC QUIGLEY CATHETER PATENT AND DRAINING. BED LOCKED IN LOWEST POSITION. BED ALARM ON. CALL LIGHT WITHIN REACH.
[2025-04-23] MEDS ORDERED: Magnesium Sulf 2 GM/Water 50ML 50 ML IV ONE (06:40)
[2025-04-23 08:31] VITALS: BP 133/78
[2025-04-23] MEDS ORDERED: ASPI81CH PO (10:29)
[2025-04-23] MEDS ORDERED: ATOR40TA PO (10:30)
[2025-04-23] MEDS ORDERED: JARDIANCE10 MG PO (10:32)
[2025-04-23] MEDS ORDERED: FLUT.05NI (10:33)
[2025-04-23] MEDS ORDERED: IPRAT-ALBUT 0.5-3 ML INH (10:34)
[2025-04-23] MEDS ORDERED: MIRALAX17 GM PO (10:35)
[2025-04-23] MEDS ORDERED: SEVEC800 PO (10:41)
--- NOTE | 2025-04-23 14:21 | NUR ---
DISCHARGE SUMMARY PATIENT A/OX4, ABLE TO MAKE ALL NEEDS KNOWN AND COMPLIANT WITH CARE. LS CTA, NO RESP DISTRESS. DENIES CHEST PAIN. SR ON MONITOR. NEW MEPILEX DRSG TO COCCYX PRIOR TO D/C. PATIENT RESTRICTED TO JUST OVER 1000ML PO FLUIDS SINCE BEGINNING OF SHIFT. PATIENT TRANSFERRED TO W/C VIA CEILING LIFT. HOME WITH ALL BELONGINGS. VERBALIZES UNDERSTANDING OF D/C INST. CAREGIVER TO MEET PATIENT AT HOME.
== END 2025-04-23 14:22 | DRG 871 ==
LOC: ER 14:07 → PCU 17:14
PROVIDERS: Emergency Medicine; Family Medicine; Internal Medicine Cardiovascular Disease; Internal Medicine Nephrology; Nurse Practitioner Acute Care; ADMIT Internal Medicine
DX: A41.9 Sepsis, unspecified organism (principal); I21.A1 Myocardial infarction type 2; I50.21 Acute systolic (congestive) heart failure; N17.9 Acute kidney failure, unspecified; N18.4 Chronic kidney disease, stage 4 (severe); E87.1 Hypo-osmolality and hyponatremia; D61.818 Other pancytopenia; I13.2 Hypertensive heart and chronic kidney disease with heart failure and with stage 5 chronic kidney disease, or end stage renal disease; N18.5 Chronic kidney disease, stage 5; R65.20 Severe sepsis without septic shock; E11.22 Type 2 diabetes mellitus with diabetic chronic kidney disease; I50.9 Heart failure, unspecified; E03.9 Hypothyroidism, unspecified; E78.5 Hyperlipidemia, unspecified; J44.9 Chronic obstructive pulmonary disease, unspecified; D63.1 Anemia in chronic kidney disease; E83.39 Other disorders of phosphorus metabolism; I87.8 Other specified disorders of veins; H66.92 Otitis media, unspecified, left ear
CPT/HCPCS: 32555; 36415; 36430; 51702; 71045; 74176; 76770; 80048; 80053; 80061; 80069; 81001; 82042; 82270; 82330; 82550; 82607; 82728; 82746; 82803; 82945; 82947; 83010; 83036; 83540; 83550; 83605; 83615; 83735; 83880; 84157; 84439; 84443; 84478; 84481; 84484; 85007; 85014; 85018; 85025; 85027; 85045; 85060; 85610; 85730; 86850; 86900; 86901; 86923; 87040; 87070; 87086; 87205; 88108; 88305; 89051; 93005; 93010; 94640; 94664; 94762; 96365; 97110; 97161; 99285-25; A9270; C1751; C8929; J0612; J0696; J0881; J1750; J1815; J1938; J2916; J3475; J7030; J7040; J7050; P9016; P9047; Q9957

== ENCOUNTER 2025-05-22 13:54 | Emergency (ER) | payer OTHER ==
[~2025-05-22] VITALS: Ht 185.4 cm; Wt 74.8 kg
[~2025-05-22 13:54] MED LIST changes: +ASPI81CH PO; +CETI5 PO; +FLONASE ALLERG9.9 M2 NS; +FLUT.05NI; +FLUTICASONE FU50 MCG INH; +JARDIANCE10 MG PO; +LEVOTHYROXINE200 MCG PO; +NYSTOP15 GM TOP; +SEVEC800 PO
[2025-05-22 15:05] LABS: BASOPHILS ABSOLUTE AUTO 0.03 K/mm3 (0.00-0.23); BASOPHILS PERCENT AUTO 1 % (0-2); EOSINOPHILS ABSOLUTE AUTO 0.31 K/mm3 (0.00-0.68); EOSINOPHILS PERCENT AUTO 7 % (0-6); Hematocrit 18.1 % (37.0-53.0); IMMATURE GRAN ABSOLUTE AUTO 0.02 K/mm3 (0.00-0.10); IMMATURE GRAN PERCENT AUTO 1 % (0-1); LYMPHOCYTES ABSOLUTE AUTO 0.60 K/mm3 (0.84-5.20); LYMPHOCYTES PERCENT AUTO 14 % (21-46); MONOCYTES ABSOLUTE AUTO 0.25 K/mm3 (0.16-1.47); MONOCYTES PERCENT AUTO 6 % (4-13); Mean Corpuscular HGB Conc 32.0 g/dL (31.5-36.5); Mean Corpuscular Volume 90 fL (80-100); NEUTROPHILS ABSOLUTE AUTO 3.23 K/mm3 (1.96-9.15); NEUTROPHILS PERCENT AUTO 73 % (41-73); NRBC ABSOLUTE 0.00 K/mm3 (0.00-0.02); NRBC Auto 0.0 /100 WBC (0.0-0.2); Platelet Count 96 K/mm3 (150-400); RDW Coefficient Variation 16.7 % (11.7-14.2); RDW Standard Deviation 54.1 fL (35.1-46.3)
[2025-05-22 15:14] LABS: Hemoglobin 5.8 g/dL (13.5-17.5)
[2025-05-22 15:24] LABS: Alanine Aminotransfer (ALT/SGP 17.0 U/L (12-78); Albumin, Blood 2.3 g/dL (3.4-5.0); Albumin/Globulin Ratio 0.6 (0.8-1.8); Anion Gap 14.0 mmol/L (3-11); Aspartate Aminotrans (AST/SGOT 14.0 U/L (12-37); Bilirubin, Total 0.2 mg/dL (0.1-1.0); Blood Urea Nitrogen 90.0 mg/dL (8-24); CO2, Blood 16.0 mmol/L (21-32); Calcium, Blood 7.6 mg/dL (8.5-10.1); Chloride, Blood 113.0 mmol/L (98-108); Creatinine, Blood 4.26 mg/dL (0.60-1.20); Globulin, Blood 4.0 g/dL (2.2-4.0); Glucose, Blood 152.0 mg/dL (70-99); Potassium, Blood 4.2 mmol/L (3.5-5.5); Sodium, Blood 139.0 mmol/L (136-145); Total Protein, Blood 6.3 g/dL (6.4-8.2)
[2025-05-22 15:48] LABS: Source, Urine Foley catheter
[2025-05-22 16:14] LABS: Bilirubin, Urine Neg (Neg); Glucose Qualitative, Urine 2+ (Neg); Ketones, Urine Neg (Neg); Leukocyte Esterase, Urine 3+ (Neg); Protein, Urine 3+ (Neg); Specific Gravity, Urine 1.020 (1.003-1.022); Urobilinogen, Urine NORM (Normal)
[2025-05-22 16:41] LABS: Color, Urine Pale Yellow (P-Yellow)
[2025-05-22 16:42] LABS: Red Blood Cells, Urine TNTC /hpf (0-2); White Blood Cells, Urine TNTC /hpf (0-5)
[2025-05-22] MEDS ORDERED: NS 1,000 ML IV ONE (16:47)
[2025-05-22] MEDS ORDERED: NS 1,000 ML IV SCH ×2 (17:20→18:05)
[2025-05-22] MEDS ORDERED: CefTRIAXone Sodium 1,000 MG in NS 50 ML IV ONE (18:55)
[2025-05-22 20:20] VITALS: BP 117/89
== END 2025-05-22 20:25 | disposition short-term general hospital (02) ==
LOC: ER 13:54
PROVIDERS: Emergency Medicine
DX: N39.0 Urinary tract infection, site not specified (principal); R31.9 Hematuria, unspecified; K92.1 Melena; I12.9 Hypertensive chronic kidney disease with stage 1 through stage 4 chronic kidney disease, or unspecified chronic kidney disease; E11.22 Type 2 diabetes mellitus with diabetic chronic kidney disease; N18.4 Chronic kidney disease, stage 4 (severe); E78.5 Hyperlipidemia, unspecified; E03.9 Hypothyroidism, unspecified; E11.42 Type 2 diabetes mellitus with diabetic polyneuropathy; J44.9 Chronic obstructive pulmonary disease, unspecified; I25.2 Old myocardial infarction; F17.210 Nicotine dependence, cigarettes, uncomplicated; Z96.0 Presence of urogenital implants; Z79.82 Long term (current) use of aspirin; Z79.84 Long term (current) use of oral hypoglycemic drugs; Z79.4 Long term (current) use of insulin; Z79.890 Hormone replacement therapy; Z79.899 Other long term (current) drug therapy
CPT/HCPCS: 36430; 51702; 80053; 81001; 85025; 86850; 86900; 86901; 86923; 87086; 96360-59; 99284-25; J7030; P9016